=== PATIENT | male | born 1955 | race Caucasian/White ===

== ENCOUNTER → 2018-01-02 07:34 | Outpatient (CLI) | payer OTHER, SELFPAY ==
[2018-01-02 08:41] LABS: Potassium 3.9 mmol/L (3.5-5.1)
== END ==
PROVIDERS: PCP Internal Medicine; Visit Provider Internal Medicine
DX: I48.91 Unspecified atrial fibrillation (principal)
CPT/HCPCS: 36415; 84132

== ENCOUNTER 2018-06-25 07:25 | Outpatient (CLI) | payer OTHER, SELFPAY ==
[2018-06-25 08:59] LABS: BUN 15 mg/dL (7-18); CREATININE 0.81 mg/dL (0.70-1.30); Calcium 9.2 mg/dL (8.5-10.1); Chloride 105 mmol/L (98-107); Cholesterol 99 mg/dL (50-200); Digoxin 0.58 ng/mL (0.90-2.00); Glucose 144 mg/dL (70-100); HDL Cholesterol 31 mg/dL (40-60); LDL CHOLESTEROL 53 mg/dL (<100); Potassium 3.9 mmol/L (3.5-5.1); Sodium 143 mmol/L (136-145); Triglyceride 80 mg/dL (30-150)
== END 2018-06-25 07:45 ==
PROVIDERS: PCP Internal Medicine; Visit Provider Internal Medicine
DX: I48.91 Unspecified atrial fibrillation (principal); R73.01 Impaired fasting glucose; E78.00 Pure hypercholesterolemia, unspecified; Z51.81 Encounter for therapeutic drug level monitoring
CPT/HCPCS: 36415; 80048; 80061; 83721; 80162

== ENCOUNTER 2019-07-01 07:22 | Outpatient (CLI) | payer OTHER, SELFPAY ==
[2019-07-01 09:03] LABS: Anion Gap 12.1 mmol/L (3-11); BUN 15 mg/dL (7-18); CO2 25.9 mmol/L (21.0-32.0); CREATININE 0.67 mg/dL (0.70-1.30); Calculated LDL 63 mg/dL (<100); Chloride 105 mmol/L (98-107); Cholesterol 108 mg/dL (<200); Digoxin 0.56 ng/mL (0.90-2.00); Glucose 164 mg/dL (74-106); HDL Cholesterol 29 mg/dL (40-60); Potassium 3.5 mmol/L (3.5-5.1); Sodium 143 mmol/L (136-145); Triglyceride 80 mg/dL (<150)
[2019-07-01 13:46] LABS: COMMENT (LAB VIEW ONLY) 148.83 mg/dL
== END 2019-07-01 07:42 ==
PROVIDERS: PCP Internal Medicine; Visit Provider Internal Medicine
DX: I10 Essential (primary) hypertension (principal); R73.01 Impaired fasting glucose; E78.00 Pure hypercholesterolemia, unspecified; I48.91 Unspecified atrial fibrillation; R60.9 Edema, unspecified
CPT/HCPCS: 36415; 80048; 80061; 80162; 82043; 82570

== ENCOUNTER 2020-08-28 09:47 | Outpatient (CLI) | payer SELFPAY ==
--- NOTE | 2020-08-28 09:45 | RT.EKG_ITS ---
APPROVED REPORT Exam: Resting ECG Patient Location: O HR:121 bpm ECG Measurements Heart Rate 121 AXIS [place] [id number] P [id number] QRSd 103 QRS 40 QT 296 T -70 QTc 420 Conclusion Atrial fibrillation...V-rate 87-147, irreg A-activity Low voltage, precordial leads...precordial leads <1.0mV
== END 2020-08-28 09:48 | disposition home or self-care (01) ==
LOC: DI.CARD 09:48
PROVIDERS: PCP Internal Medicine; Visit Provider Internal Medicine Cardiovascular Disease
DX: R00.0 Tachycardia, unspecified (principal)
CPT/HCPCS: 93010

== ENCOUNTER 2020-09-01 03:21 | Outpatient (CLI) | payer SELFPAY ==
[2020-09-01 08:10] LABS: Anion Gap 9.4 mmol/L (3-11); BUN 17 mg/dL (7-18); CO2 29.6 mmol/L (21.0-32.0); Calcium 9.5 mg/dL (8.5-10.1); Calculated LDL 43 mg/dL (<100); Chloride 105 mmol/L (98-107); Cholesterol 85 mg/dL (<200); Glucose 151 mg/dL (74-106); HDL Cholesterol 31 mg/dL (40-60); Potassium 4.4 mmol/L (3.5-5.1); Sodium 144 mmol/L (136-145); Triglyceride 55 mg/dL (<150)
[2020-09-01 12:09] LABS: COMMENT (LAB VIEW ONLY) 30.43 mg/dL; Microalb ug/mg Crea 95.3 ug/mg Cr
== END 2020-09-01 03:22 | disposition home or self-care (01) ==
PROVIDERS: PCP Internal Medicine; Visit Provider Internal Medicine
DX: E78.00 Pure hypercholesterolemia, unspecified (principal); I10 Essential (primary) hypertension; E11.9 Type 2 diabetes mellitus without complications; I48.20 Chronic atrial fibrillation, unspecified; Z79.899 Other long term (current) drug therapy
CPT/HCPCS: 36415; 80048; 80061; 80162; 82043; 82570

== ENCOUNTER 2020-09-07 02:37 | Outpatient (CLI) | payer SELFPAY ==
[2020-09-07 07:58] LABS: Digoxin 0.51 ng/mL (0.90-2.00)
== END 2020-09-07 02:38 | disposition home or self-care (01) ==
LOC: LBO 02:37
PROVIDERS: PCP Internal Medicine; Visit Provider Internal Medicine
DX: I48.20 Chronic atrial fibrillation, unspecified (principal); Z51.81 Encounter for therapeutic drug level monitoring
CPT/HCPCS: 36415; 80162

== ENCOUNTER 2020-09-09 10:56 | Outpatient (CLI) | payer SELFPAY ==
--- NOTE | 2020-09-09 10:45 | RT.EKG_ITS ---
APPROVED REPORT Exam: Resting ECG Reason for Exam: a fib Patient Location: O HR:117 bpm ECG Measurements Heart Rate 117 AX[address] W[place] [id number] P [id number] QRSd 96 QRS 42 QT 300 T 216 QTc 419 Conclusion Atrial fibrillation...V-rate 65-158, irreg A-activity
--- NOTE | 2020-09-09 12:00 | HOLTER_ITS ---
APPROVED REPORT Conclusion This is a 48-hour monitor ordered for indication of dyspnea. The patient was in atrial fibrillation for the entirety of the recording with an average heart rate o f 72 bpm. There were no episodes of ventricular tachycardia and rare PVCs. There were no pauses greater than 3 seconds and no evidence of high degree heart block. There was 1 patient triggered event associated with atrial fibrillation with RVR.
== END 2020-09-09 10:57 | disposition home or self-care (01) ==
LOC: DI.CARD 11:15
PROVIDERS: PCP Internal Medicine; Visit Provider Internal Medicine Cardiovascular Disease
DX: I48.91 Unspecified atrial fibrillation (principal)
CPT/HCPCS: 93010; 93225

== ENCOUNTER 2020-09-09 11:56 | Outpatient (RCR) | payer SELFPAY | END 2020-10-05 23:59 | disposition home or self-care (01) | LOC: RT 11:56 | PROVIDERS: PCP Internal Medicine; Visit Provider Internal Medicine Cardiovascular Disease | DX: R06.09 Other forms of dyspnea (principal); I48.91 Unspecified atrial fibrillation | CPT/HCPCS: 93226 ==

== ENCOUNTER 2020-09-17 00:31 | Outpatient (CLI) | payer SELFPAY ==
--- NOTE | 2020-09-17 07:00 | DI.US_ITS ---
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 Technically limited study due to body habitus. Conclusion Left Ventricle : The left ventricle is normal size. The left ventricular systolic function is normal. The left ventricular ejection fraction is within the normal range. There is normal left ventricular wall thickness. There is normal LV segmental wall motion. LVEF is 55%. Right Ventricle : The right ventricle is normal size. The right ventricular systolic function is norm al. Atria : The left atrium size is normal. The right atrium size is normal. Aortic Valve : The aortic valve is normal in structure. Aortic valve is trileaflet. Trace to mild aor tic regurgitation. There is no aortic valvular stenosis. Great Vessels : The aortic root is normal in size. The ascending aorta is mildly dilated. Aortic arch is normal in caliber. IVC is normal in size and collapses >50% with inspiration. Please see remainder of study for further details. Wall motion Left Ventricle The left ventricle is normal size. The left ventricular systolic function is normal. The left ventric ular ejection fraction is within the normal range. There is normal left ventricular wall thickness. T here is normal LV segmental wall motion. There is no ventricular septal defect visualized. LVEF is 55 %. Right Ventricle The right ventricle is normal size. The right ventricular systolic function is normal. Atria The left atrium size is normal. The right atrium size is normal. The interatrial septum is intact wit h no evidence for an atrial septal defect. Aortic Valve The aortic valve is normal in structure. Aortic valve is trileaflet. There is no aortic valvular sten osis. Trace to mild aortic regurgitation. Mitral Valve Mild mitral annular calcification. No evidence of mitral valve stenosis. Trace to mild mitral regurgi tation. Tricuspid Valve The tricuspid valve is normal in structure. There is no tricuspid valve stenosis. Trace tricuspid reg urgitation. Pulmonic Valve Pulmonic valve is not well visualized. There is no pulmonic valvular stenosis. Trace pulmonic regurgi tation. Great Vessels The aortic root is normal in size. The ascending aorta is mildly dilated. Aortic arch is normal in ca liber. IVC is normal in size and collapses >50% with inspiration. Pericardium There is no pericardial effusion. 2D Dimensions IVSD d PLAX 0.96 cm M: 0.6-1.2 LV Vol A2C d MOD 116.2 mL LVPW d PLAX 1.05 cm M: 0.6 - 1.2 LV Vol A4C d MOD 109.9 mL LVID d PLAX 5.01 cm M: 4.2 - 5.8 LA vol/ BSA A2C s A-L 47.7 mL/m2 LVDs 3.55 cm M: 2.5 - 4.0 LA vol/ BSA A4C s A-L 45.9 mL/m2 Ao Root d 3.28 cm M: 3.1 - 3.7 LA Vol/ BSA Biplane s A-L 49.0 mL/m2 RA Area A4C 19.91 cm2 LA Area A4C s MOD 30.22 cm2 RA Vol/ BSA A4C s A-L 25.0 mL/m2 LA Area A2C s MOD 29.38 cm2 Ao Asc Diam d 3.72 cm M: 2.6 - 3.4 LV EF A4C MOD 56.7 % LV EF Teichholz 55.6 % LV EF A2C MOD 53.8 % LVEF (Morgan's) 55.66 % M: 52 - 72 LV EF Biplane MOD 55.7 % LV Volume 83.37 mL M: 62 - 150 SV 64.57 mL LV Volume Index 36.56 mL/m2 M: 34 - 74 SV Index 28.23 mL/m2 LV Vol Biplane MOD 116.0 mL FS 29.00 % M-Mode TAPSE 2.04 cm (M/F) >1.7 LV Diastology MV E' medial 0.092 (>0.07 m/s) MV E Vmax 0.94 (0.4-1.3 m/s) LV E/e MED 10.20 (<14) MV E' lateral 0.111 (>0.1 m/s) LV E/e LAT 8.40 (<14) MV E/E' medial 10.24 MV E/E' lateral 8.44 Aortic Valve LVOT Area 3.79 cm2 AoV Area Vmax 2.75 cm2 LVOT Vmax 1.18 m/s AoV Area/ BSA (Vmax) 1.20 cm2/m2 LVOT Mean Rojelio. 0.73 m/s MILLER Mean Rojelio. 2.56 cm2 LVOT Peak Grad 5.5 mmHg MILLER Mean Rojelio. Index 1.12 cm2/m2 LVOT Mean Grad 2.6 mmHg AR DT 2510 msec LVOT VTI 0.199 m AR PHT 728 msec LVOT Diam s 2.15 cm AoV Vmax 1.63 m/s Velocity Ratio 0.72 AoV Mean Rojelio. 1.08 m/s AoV Peak Grad 10.6 mmHg LVOT SV 75.56 mL AoV Mean Grad 5.4 mmHg AoV VTI 0.243 m AoV Area VTI 3.11 cm2 AoV Area/ BSA (VTI) 1.36 cm/m2 Mitral Valve MV DT 168 (160-240 msec) MV PHT 49 msec MV Area PHT 4.51 cm2 MV VTI 0.224 m MV Area VTI 3.38 (4.0-6.0 cm2) Pulmonary Valve PV Vmax 0.93 (0.5-1.5 m/s) RVOT Peak Gr. 2.58 mmHg PV Peak Grad 3.5 mmHg RVOT Mean Gr. 1.55 mmHg PV Mean Grad 2.1 mmHg RVOT VTI 0.163 m PV VTI 0.220 m RVOT Vmax 0.80 m/s
--- NOTE | 2020-09-17 07:00 | DI.NM_ITS ---
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 Reason for pharmacologic stress test: arthritis in BLE. Rest Isotope: Tc-99m Sestamibi. Dose: 14.0 Date: 09/17/2020 Injection Time: 0845 Stress Isotope: Tc-99m Sestamibi. Dose: 45.0 Date: 09/17/2020 Injection Time: 1025 HR Resting HR Supine: 102 bpm Max Heart Rate (APMHR): 156.001563 bpm Resting HR Standin bpm Target HR (85% APMHR): 132.381300 bpm Max HR Achieved: 190 bpm % of APMHR: 121.79 Recovery HR: 112 bpm HR response to stress: Accelerated HR response to stress Comment: Did not hold metoprolol succinate. Taken this AM. BP Resting BP Supine: 144/76 mmHg Resting BP Standin/80 mmHg Max BP: 144/76 mmHg Recovery BP: 140/82 mmHg BP response to stress: Normal blood pressure response to stress. ECG Resting ECG: Atrial Fibrillation Ectopy: None Stress ECG: Atrial Fibrillation ST Change: No significant ST segment changes noted Arrhythmia: None Recovery ECG: Atrial Fibrillation Recovery ST Change: No significant ST segment changes noted Recovery Arrhythmia: PVC Clinical Stress Symptoms: Lightheaded Exercise duration: 4 min8 sec Exercise capacity: 1.54 METs Rate Pressure Product: [id number] Stress ECG Conclusion 1. This is a pharmacological stress test. 2. The EKG portion of the exam is nondiagnostic. MPI Conclusion There is a small mostly fixed perfusion defect at the apex and apical anterior wall. There were no wall motion abnormalities. Ejection fraction was 55%. Radiologist Interpretation Radiologist agrees with Ruby Software Developer's Interpretation. Radiologist Interpretation by: Rebecca Saleh MD Interpretation Date/Time: 09/18/2020 15:29:58
[2020-09-17] MEDS: Regadenoson 0.4 MG/5 ML SYR IVP (10:14)
== END 2020-09-17 00:51 ==
PROVIDERS: PCP Internal Medicine; Visit Provider Internal Medicine Cardiovascular Disease
DX: I48.91 Unspecified atrial fibrillation (principal); R93.9 Diagnostic imaging inconclusive due to excess body fat of patient; I77.810 Thoracic aortic ectasia
CPT/HCPCS: 78452; 93017; 93306; J2785

== ENCOUNTER 2020-10-06 07:08 | Day surgery (SDC) | payer SELFPAY ==
[2020-10-06] VITALS (9 sets, daily range): BP systolic 100–131; BP diastolic 42–75; PULSE 47–62; RESP 14–19; TEMP 36.4–36.8; O2SAT 94–97; BMI 52.1
--- NOTE | 2020-10-06 06:00 | RT.EKG_ITS ---
APPROVED REPORT Exam: Resting ECG Reason for Exam: Cardioversion Pre-op Patient Location: O HR:61 bpm ECG Measurements Heart Rate 61 AXIS [place] [id number] P [id number] QRSd 97 QRS 35 QT 393 T [id number] QTc 395 Conclusion Atrial fibrillation...V-rate 49- 68, irreg A-activity Anteroseptal infarct, age indeterminate...Q >35mS, T neg, V1-V2
--- NOTE | 2020-10-06 07:49 | ANES.PREOP_ITS ---
General Info Date of Service Date Performed: 10/06/20 Height: 5 ft 5 in Weight: 142.1 kg Body Mass Index (BMI): 52.1 Surgical Procedure: Operation Date: 10/06/20 09:15 Proposed Procedures Side Surgeon p Cardioversion Salomón Noland MD Actual Procedures Side Surgeon p Cardioversion Salomón Noland MD Meds Allergies and Home Medications Allergies Allergy/AdvReac Type Severity Reaction Status Date / Time No Known Drug Allergies Allergy Verified 10/06/20 07:29 Home Medication Medication Instructions Recorded multivitamin 1 ea PO DAILY 07/17/12 Biotine DENTAL BID 01/15/13 amlodipine 5 mg tablet 5 mg PO DAILY #90 tab-cap 01/28/20 apixaban 5 mg tablet 5 mg PO q 12 hours #180 tab 01/28/20 atorvastatin 40 mg tablet 40 mg PO DAILY #90 tab-cap 01/28/20 digoxin 250 mcg (0.25 mg) tablet 375 mcg PO DAILY #135 tab-cap 01/28/20 diltiazem HCl 360 mg 360 mg PO DAILY #90 tab-cap 01/28/20 capsule,extended release 24 hr furosemide 40 mg tablet 40 mg PO BID #180 tab 01/28/20 metoprolol succinate 50 mg 50 mg PO DAILY #90 tab 01/28/20 tablet,extended release 24 hr potassium chloride 20 mEq 20 meq PO BID #180 tab-cap 01/28/20 tablet,extended release Current Visit Medications: Current Medications Generic Name Dose Route Start Last Admin Trade Name Freq PRN Reason Stop Dose Admin Sodium Chloride 1,000 mls @ 30 mls/hr 10/01/20 06:00 Saline 1000ml Bag IV [facility] Active Problems Active Problems: Problem Status Onset Code Dyspnea R06.00 Type 2 diabetes mellitus without complication ~09/01/20 E11.9 Essential hypertension 07/17/12 I10 Atrial fibrillation 10/06/15 I48.91 Obstructive sleep apnea (adult) (pediatric) 09/11/12 G47.33 Chronic anticoagulation ~09/2015 Z79.01 BMI 50.0-59.9, adult 09/11/12 Z68.43 Knee pain 06/18/13 M25.569 Peripheral edema 12/26/17 R60.9 Weight loss counseling, encounter for 02/11/15 Z71.3 Medical History Medical History (Reviewed 10/06/20 @ 07:29 by Guillermo Rivera Colon cancer screening Impaired fasting glucose (06/30/11) Tobacco Smoking/Tobacco Use Status: Never Alcohol Alcohol Intake: never Substance Use Substance use: Never Substance use type: does not use Vital Signs and Lab Results Vital Signs Most Recent Vital Signs in EMR: Most Recent Vital Signs Temp Pulse Resp BP Pulse Ox 36.4 C L 62 18 131/75 95 10/06/20 07:33 10/06/20 07:33 10/06/20 07:33 10/06/20 07:33 10/06/20 07:33 Lab Results Blood Type / Crossmatch: No Data to Display Complete Blood Count: No Data to Display Complete Metabolic Panel: No Data to Display Liver Function Panel: No Data to Display Coagulation Panel: No Data to Display Cardiac Panel: No Data to Display Arterial Blood Gas: No Data to Display Venous Blood Gas: No Data to Display Pancreas Panel: No Data to Display Thyroid Panel: No Data to Display Infectious Disease: No Data to Display Blood Cultures: No Data to Display Toxicology Panel: Digoxin Level 0.51 ng/mL (0.90-2.00) L 09/07/20 07:14 09/07/20 Imaging and Studies Imaging and Studies Stress Test Summary: 09/25: Stress ECG Conclusion 1. This is a pharmacological stress test. 2. The EKG portion of the exam is nondiagnostic. MPI Conclusion There is a small mostly fixed perfusion defect at the apex and apical anterior wall. There were no wall motion abnormalities. Ejection fraction was 55%. Echocardiogram Summary: 09/25: Left Ventricle : The left ventricle is normal size. The left ventricular systolic function is normal. The left ventricular ejection fraction is within the normal range. There is normal left ventricular wall thickness. There is normal LV segmental wall motion. LVEF is 55%. Right Ventricle : The right ventricle is normal size. The right ventricular systolic function is normal. Atria : The left atrium size is normal. The right atrium size is normal. Aortic Valve : The aortic valve is normal in structure. Aortic valve is trileaflet. Trace to mild aortic regurgitation. There is no aortic valvular stenosis. Great Vessels : The aortic root is normal in size. The ascending aorta is mildly dilated. Aortic arch is normal in caliber. IVC is normal in size and collapses >50% with inspiration. Please see remainder of study for further details. Anesthesia Assessment and Plan Anesthesia History Personal History: No History of Anesthesia Complications Family History: No Family History of Anesthesia Complications Exercise Tolerance Exercise Tolerance: Metabolic Equivalents>4 Cardiac & Pulmonary Exam Cardiac Exam: Normal S1/S2 Heart Sounds Pulmonary Exam: Clear Bilateral Breath Sounds Airway Exam Known Difficult Airway: No Mallampati Class: 2 Mouth Opening: Normal (> 3cm) Thyromental Distance: Greater than 3 cm Neck Range of Motion: Limited ROM Neck Circumference: Thick Teeth Condition: Normal Dentition ASA Classification ASA Score: ASA 3 Emergency Case?: No NPO Status NPO Status: NPO Clears >2 hours, Solids >8 hours Anesthesia Plan Resuscitation Status: Full Code Anesthesia Technique: MAC Anesthesia Airway Planned: Natural Airway Monitors Used: Standard Monitors
[2020-10-06] MEDS: Normal Saline 1,000 ML 30 ML IV (07:52)
--- NOTE | 2020-10-06 08:48 | W.PM.HP.N ---
Date of service: 10/06/20 Time of Service: 08:49 Assessment and Plan Assessment and plan (1) Chronic anticoagulation: Status: Chronic (2) Atrial fibrillation: Status: Acute Assessment and plan: 1. Persistent atrial fibrillation: Followed by [facility] electrophysiology. Plan today will be for DC cardioversion and follow-up with electrophysiology to discuss potential antiarrhythmic versus ablation. He had an echocardiogram which showed preserved ejection fraction and a nuclear stress test which showed a small fixed perfusion defect at the apex. He has not missed a single dose of his anticoagulation and therefore will not need a AUREA prior to the cardioversion. ?Plan to proceed with cardioversion. Qualifiers: Atrial fibrillation type: chronic Qualified Code(s): I48.2 - Chronic atrial fibrillation History of Present Illness History of Present Illness Chief Complaint: Afib Narrative: This is a 65-year-old with persistent atrial fibrillation who is seen in electrophysiology clinic here in early September. At that time it was felt as though a trial of the patient in normal sinus rhythm would help better understand whether or not an antiarrhythmic approach would be to his benefit. He is coming in today for a cardioversion. He has not missed a single dose of his anticoagulation. Review of Systems All systems reviewed & are unremarkable except as noted in HPI and below PFSH Medical History Colon cancer screening Impaired fasting glucose (06/30/11) Family History Mother No problems noted. Father , [place] at age 61. Myocardial infarction Sister No problems noted. Sister No problems noted. Son No problems noted. Son No problems noted. Daughter Personal history of malignant neoplasm age 9 of leukemia Social History Smoking/Tobacco Use Status: Never Smoking risk assessment performed?: Yes Alcohol Intake: never Drug use: Never Substance use type: does not use Household members: none Housing: house Number of Children: 3 number of grandchildren: 5 Communication Needs: Corrective Lenses current occupation: works at [employer] - retired Pets and animals: Yes (New dog, namned Annette) Current gender identity: male What is your relationship status?: Panel score (0-1 are the most socially isolated patients): 0 What type of physical activity do you participate in: walking and regular exercise Duration: 30-45 minutes/day Frequency: daily Seatbelt use: always Drive intox or ride w/intox taxi driver: No Working smoke detector in home: Yes Fire extinguisher in home: Yes Carbon monox detector in home: Yes Do you feel safe at home: Yes Do you feel safe in your relationship?: Yes Meds Allergies and Home Medications Allergies Allergy/AdvReac Type Severity Reaction Status Date / Time No Known Drug Allergies Allergy Verified 10/06/20 07:29 Home Medications Medication Instructions Recorded Confirmed Type multivitamin 1 ea PO DAILY 07/17/12 10/06/20 History Biotine DENTAL BID 01/15/13 01/28/20 History amlodipine 5 mg tablet 5 mg PO DAILY #90 tab-cap 01/28/20 10/06/20 Rx apixaban 5 mg tablet 5 mg PO q 12 hours #180 tab 01/28/20 10/06/20 Rx atorvastatin 40 mg tablet 40 mg PO DAILY #90 tab-cap 01/28/20 10/06/20 Rx digoxin 250 mcg (0.25 mg) tablet 375 mcg PO DAILY #135 tab-cap 01/28/20 10/06/20 Rx diltiazem HCl 360 mg 360 mg PO DAILY #90 tab-cap 01/28/20 10/06/20 Rx capsule,extended release 24 hr furosemide 40 mg tablet 40 mg PO BID #180 tab 01/28/20 10/06/20 Rx metoprolol succinate 50 mg 50 mg PO DAILY #90 tab 01/28/20 10/06/20 Rx tablet,extended release 24 hr potassium chloride 20 mEq 20 meq PO BID #180 tab-cap 01/28/20 10/06/20 Rx tablet,extended release Exam Const General: comfortable and no acute distress [facility] Head: normocephalic and atraumatic Eyes General: appearance normal, both eyes and all related structures Resp Effort & Inspection: normal respiratory effort Auscultation: clear to auscultation bilaterally Cardio Jugular venous pressure: no JVD Palpation: normal PMI Rate: regular rate Rhythm: abnormal rhythm Heart Sounds: S1 normal and S2 normal (No Murmurs, Rubs or Gallops) GI Palpation: soft Auscultation: normoactive bowel sounds Skin General skin exam: no rashes or lesions noted Extrem General: normal to inspection and no clubbing, cyanosis or edema Psych Appearance: grossly normal Results Last Vital Signs Temp 36.4 C L 10/06/20 07:33 Pulse 62 10/06/20 07:33 Resp 18 10/06/20 07:33 BP 131/75 10/06/20 07:33 Pulse Ox 95 10/06/20 07:33 COVID-19 Screening Have you, or household traveled for leisure in last 14 days?: No Had IN PERSON contact w/suspected or confirmed C-19 person: No
--- NOTE | 2020-10-06 09:00 | RT.EKG_ITS ---
APPROVED REPORT Exam: Resting ECG Reason for Exam: cardioversion post-op Patient Location: O HR:49 bpm ECG Measurements Heart Rate 49 AXIS [place] 274 P 30 QRSd 96 QRS 66 QT [id number] T 57 QTc 0 Conclusion Sinus bradycardia...rate< 60 Supraventricular bigeminy...bigeminy string>4 w/ SV complexes Prolonged AZ interval...AZ >230, V-rate 30- 49 Anteroseptal infarct, age indeterminate...Q >35mS, T neg, V1-V2
--- NOTE | 2020-10-06 09:22 | W.CARDVER ---
Date of service: 10/06/20 Time of Service: 09:22 Cardioversion Patient was confirmed to be in atrial fibrillation and timeout was performed. He was sedated by anesthesia. The patient received 200 J cardioversion x3. After the first 2 shocks he remained in atrial fibrillation but after the third shock he converted to sinus bradycardia. This was confirmed by ECG. He tolerated the procedure well without any complications. Patient was moved to recovery unit.
--- NOTE | 2020-10-06 10:18 | W.ANESPOSTOP ---
Postoperative Evaluation Date, Time and Location Date Performed: 10/06/20 Time Performed: 10:18 Patient Location: PACU Vital Signs Most Recent Imported Vital Signs: Most Recent Vital Signs Temp Pulse Resp BP Pulse Ox 36.8 C 53 L 17 115/59 L 95 10/06/20 10:15 10/06/20 10:15 10/06/20 10:15 10/06/20 10:15 10/06/20 10:15 Pain Score Most Recent Pain Score: Most Recent Pain Score Pain Level 0 10/06/20 10:15 Assessment Mental Status: Awake (Alert & Oriented to Patient Baseline) Airway and Respiratory Function: Patent airway with normal (patient baseline) respiratory exam Cardiovascular Function: Hemodynamically Stable Hydration Status: Adequately Hydrated Nausea & Vomiting: No Nausea or Vomiting Pain: Pt. Denies Any Pain Peripheral Nerve Block: Patient did not receive a nerve block
== END 2020-10-06 11:13 | disposition home or self-care (01) ==
LOC: SUR 07:08
PROVIDERS: PCP Internal Medicine; Visit Provider Internal Medicine Cardiovascular Disease
PROC: 5A2204Z Restoration of Cardiac Rhythm, Single (ICD-10-PCS; CPT 92960; principal; 2020-10-06 09:15)
DX: I48.19 Other persistent atrial fibrillation (principal)
CPT/HCPCS: 92960; J2001; J2704

== ENCOUNTER 2020-10-26 09:49 | Outpatient (CLI) | payer SELFPAY ==
--- NOTE | 2020-10-26 09:45 | RT.EKG_ITS ---
APPROVED REPORT Exam: Resting ECG Reason for Exam: monitor Patient Location: O HR:79 bpm ECG Measurements Heart Rate 79 AXIS [place] [id number] P [id number] QRSd 99 QRS 44 QT 347 T 163 QTc 398 Conclusion Atrial fibrillation...V-rate 63- 99, irreg A-activity Nonspecific T abnrm, anterolateral leads...T <-0.10mV, I aVL V2-V6
== END 2020-10-26 09:50 | disposition home or self-care (01) ==
LOC: DI.CARD 09:49
PROVIDERS: PCP Internal Medicine; Visit Provider Internal Medicine Cardiovascular Disease
DX: I48.91 Unspecified atrial fibrillation (principal)
CPT/HCPCS: 93010

== ENCOUNTER 2021-03-24 02:30 | Outpatient (CLI) | payer MEDICARE, SELFPAY ==
[2021-03-24 10:51] LABS: Source Nasal/Nares
[2021-03-24 14:12] LABS: COVID-19 PCR Negative (Negative)
== END 2021-03-24 02:31 | disposition home or self-care (01) ==
PROVIDERS: PCP Internal Medicine; Visit Provider Surgery
DX: Z20.822 Contact with and (suspected) exposure to COVID-19 (principal); Z01.818 Encounter for other preprocedural examination
CPT/HCPCS: 87635

== ENCOUNTER 2021-03-26 08:44 | Day surgery (SDC) | payer MEDICARE, OTHER, SELFPAY ==
--- NOTE | 2021-03-24 12:38 | W.COLOREPORT ---
Colonoscopy Report Date of procedure: 03/26/21 Pre-op diagnosis general: CRC screening Post-op diagnosis procedure note: other (divertic and mult polys) Surgeon: Essence Kauffman Anesthesia Type: General:No Airway Estimated blood loss (mL): 2 Pathology: other Complications: None Disposition: PACU Prep: Miralax/Dulcolax Procedure Description: After informed consent was obtained the patient was taken to the procedure room and placed in a left decubitous position. Monitors were applied and a time out was done. The patients name, date of , procedure, allergies to medications and metal in their body was reviewed. The patient was then sedated. Once sedated and comfortable a rectal exam was done. External exam was normal. Internal exam revealed a normal sphincter tone and no palpable masses. The scope was then introduced and retrofelexed. No internal hemorrhoids were identified. The scope was then advanced to the cecum without difficulty. The TI and appendiceal orifice were identified. The prep was he still having lots of thick stool coating the santamaria. The colon was extensively lavaged. Lesions less than 5 mm may have been missed.. The scope was then slowly retracted over [] minutes back into the rectum. Patient has severe diverticular disease is mostly in the sigmoid. He does have lesions that do extend all the way over to the transverse colon. No signs of active bleeding or infections today. He had multiple polyps removed today. He had 2 removed in the rectum with a hot biopsy forcep. At 20 cm he also has what appears to be a hemangioma and this was cauterized. He had 2 polyps at 80 cm. One was removed with a hot polypectomy snare. This 1 is 1 cm in size. The other is moved with a hot biopsy forcep. The spinous point 7 5 cm in size. He had a another polyp at 90 cm that is at 7 5 cm in size and flat. That is removed with a hot biopsy forcep.. He had another polyp in the cecum that is removed with a hot snare.-1 cm in size and pedunculated. The scope was removed and the patient was woken up and taken back to Same day surgery in stable condition. The patient tolerated the procedure well and there were no immediate complications. Follow up: The patient should follow up in 3-5 years, pending pathology, unless they develop changes in bowel habits or other new gastrointestinal complaints.
--- NOTE | 2021-03-24 12:40 | PDOC.DSDIS_ITS ---
Discharge Plan Disposition Patient Disposition: HOME Condition: Good Discharge Details Reason For Visit: colon scope Attending Provider: Essence Kauffman Primary Care Provider: Carol Maya Home Meds and New Rx's Prescriptions: Continued furosemide 40 mg tablet 40 mg PO BID Qty: 180 RF: 3 metoprolol succinate 50 mg tablet extended release 24 hr 50 mg PO DAILY Qty: 90 RF: 3 potassium chloride 20 mEq tablet extended release 20 meq PO BID Qty: 180 RF: 3 amlodipine 5 mg tablet 5 mg PO DAILY Qty: 90 RF: 3 Eliquis 5 mg tablet 5 mg PO q 12 hours Qty: 180 RF: 3 atorvastatin 40 mg tablet 40 mg PO DAILY Qty: 90 RF: 3 digoxin 250 mcg (0.25 mg) tablet 375 mcg PO DAILY Qty: 135 RF: 1 diltiazem HCl 360 mg capsule,extended release 24hr 360 mg PO DAILY Qty: 90 RF: 3 multivitamin 1 EACH tablet 1 ea PO DAILY RF: 0 biotine Dental BID RF: 0 Discontinued polyethylene glycol 3350 17 gram/dose powder 238 g PO ONCE Qty: 238 RF: 0 bisacodyl [Dulcolax (bisacodyl)] 5 mg tablet,delayed release (DR/EC) 5 mg PO ONCE Qty: 4 RF: 0 Discharge Instructions Additional Instructions: DSU Colonoscopy Post- Op Instructions Instructions for Everyone who is given Anesthesia: For your safety, please do the following for the next twenty-four (24) hours: *Do Not operate a motor vehicle (car, truck, motorcycle, etc.) *Do Not drink alcoholic beverages or use any recreational drugs for the first 24 hours or while taking pain medications. The medications in your body may have a reaction that can be dangerous. *Do Not make any important decisions or sign any important papers. Findings: -Severe diverticular disease -6 polyp -NO: ASSA/NSAID's for 14 days Resume Elliquis on 04/01. Follow up: My office will send a letter in 3 weeks time, detailing as to what types of polyps they are, and when we want you to repeat the colonoscopy. Most likely, in 3 years time. 1. No lifting over 20 pounds or strenuous activity for the first 24 hours after your procedure. After 24 hours there are no restrictions on your activity but you may feel fatigued for a few days. 2. After you arrive home you may have a light meal and return to your normal diet as you can tolerate it without feeling sick to your stomach. 3. You may have a bloated, gaseous feeling in your belly (abdomen) after a colonoscopy. Passing gas and belching will help. Walking or lying down on your left side with your knees flexed may relieve the discomfort. Call the office at [phone] (Office) or [phone] (Hospital) right away if you notice any of the following: a.Vomiting of blood or ?coffee ground stools?. b.Rectal bleeding 1Tbsp, blood clots or continuous bleeding. c.Severe belly (abdominal) pain. d.A hard distended belly (abdomen) and an inability to pass gas. 4. Please don?t expect to have a normal BM (bowel movement) for 2-3 days after your procedure. 5. If there are questions regarding the findings of your procedure, please contact your doctor 6. If you are unable to contact your doctor with a problem, contact the hospital at [phone]. 7. Continue all your regular medications unless directed otherwise. I understand the above instructions and have no questions. Signature of Patient or Adult Escort Name of Responsible Adult Escort Signature of Nurse Date/Time Activity:: see above Diet:: Carb Counting Discharge Orders Discharge Orders: Discharge Order (Routine); Ordered 03/24/21 Ordered By: Essence Kauffman DS: Diagnosis Discharge Diagnosis (1) Adenomatous polyps: Status: Acute (2) Diverticula of colon: Status: Acute
[2021-03-26] VITALS (7 sets, daily range): BP systolic 82–107; BP diastolic 53–73; PULSE 68–84; RESP 17–27; TEMP 36–36.7; O2SAT 93–97; BMI 52.8
--- NOTE | 2021-03-26 10:34 | W.ANESPRE ---
General Info Date of Service Date Performed: 03/26/21 Height: 5 ft 4 in Weight: 139.7 kg Body Mass Index (BMI): 52.8 Surgical Procedure: Operation Date: 03/26/21 10:05 Proposed Procedures Side Surgeon criss Kauffman, Meds Allergies and Home Medications Allergies Allergy/AdvReac Type Severity Reaction Status Date / Time No Known Drug Allergies Allergy Verified 03/26/21 09:46 Home Medication Medication Instructions Recorded multivitamin 1 ea PO DAILY 07/17/12 Biotine DENTAL BID 01/15/13 amlodipine 5 mg tablet 5 mg PO DAILY #90 tab-cap 01/28/20 apixaban 5 mg tablet 5 mg PO q 12 hours #180 tab 01/28/20 atorvastatin 40 mg tablet 40 mg PO DAILY #90 tab-cap 01/28/20 digoxin 250 mcg (0.25 mg) tablet 375 mcg PO DAILY #135 tab-cap 01/28/20 diltiazem HCl 360 mg 360 mg PO DAILY #90 tab-cap 01/28/20 capsule,extended release 24 hr furosemide 40 mg tablet 40 mg PO BID #180 tab 01/28/20 metoprolol succinate 50 mg 50 mg PO DAILY #90 tab 01/28/20 tablet,extended release 24 hr potassium chloride 20 mEq 20 meq PO BID #180 tab-cap 01/28/20 tablet,extended release Current Visit Medications: Current Medications Generic Name Dose Route Start Last Admin Trade Name Freq PRN Reason Stop Dose Admin Hyoscyamine Sulfate 0.125 mg 03/24/21 12:37 Hyoscyamine 0.125 Mg Sl/Oral/Chew SL DIRECTED PRN Ringer's Solution 1,000 mls @ 80 mls/hr 03/26/21 06:00 IV 04/06/21 23:59 [facility] IV Miscellaneous Supplies 1 each 03/26/21 06:00 Iv Access IV 04/06/21 23:59 DIRECTED AVERY Ondansetron HCl 4 mg 03/24/21 12:37 Ondansetron 4 Mg/2 Ml Vial IVP Q4H PRN PRN Nausea / Vomiting Sodium Chloride 0 ml 03/26/21 06:00 Normal Saline Flush 10 Ml Syr IV 04/06/21 23:59 PRN PRN Sodium Chloride 0 ml 03/26/21 06:00 Normal Saline 10 Ml Vial IJ 04/06/21 23:59 DIRECTED PRN Sterile Water 0 ml 03/26/21 06:00 Water,Injection,Sterile 10 Ml Vial IJ 04/06/21 23:59 DIRECTED PRN PFSH Active Problems Active Problems: Problem Status Onset Code Weight loss counseling, encounter for 02/11/15 Z71.3 Peripheral edema 12/26/17 R60.9 Obstructive sleep apnea (adult) (pediatric) 09/11/12 G47.33 Knee pain 06/18/13 M25.569 Essential hypertension 07/17/12 I10 BMI 50.0-59.9, adult 09/11/12 Z68.43 Atrial fibrillation 10/06/15 I48.91 Type 2 diabetes mellitus without complication ~09/01/20 E11.9 Colon cancer screening Z12.11 Chronic anticoagulation ~09/2015 Z79.01 Dyspnea R06.00 Medical History Active Problem List (Updated 03/26/21 @ 09:50 by Kathryn To) Weight loss counseling, encounter for (Acute 02/11/15) Peripheral edema (Acute 12/26/17) Obstructive sleep apnea (adult) (pediatric) (Acute 09/11/12) Knee pain (Acute 06/18/13) Essential hypertension (Acute 07/17/12) BMI 50.0-59.9, adult (Acute 09/11/12) Atrial fibrillation (Acute 10/06/15) Type 2 diabetes mellitus without complication (Acute ~09/01/20) Colon cancer screening (Acute) Chronic anticoagulation (Chronic ~09/2015) Dyspnea (Acute) Medical History (Updated 03/26/21 @ 09:50 by Kathryn To) History of cardioversion Impaired fasting glucose (06/30/11) JOSE ARMANDO (obstructive sleep apnea) Surgical History Surgical History History of colonoscopy (~04/08/10) Tobacco Smoking/Tobacco Use Status: Never Alcohol Alcohol Intake: never Substance Use Substance use: Never Substance use type: does not use Vital Signs and Lab Results Vital Signs Most Recent Vital Signs in EMR: Most Recent Vital Signs Temp Pulse Resp BP Pulse Ox 36.7 C 71 18 107/72 97 03/26/21 09:50 03/26/21 09:50 03/26/21 09:50 03/26/21 09:50 03/26/21 09:50 Lab Results Blood Type / Crossmatch: No Data to Display Complete Blood Count: No Data to Display Complete Metabolic Panel: No Data to Display Liver Function Panel: No Data to Display Coagulation Panel: No Data to Display Cardiac Panel: No Data to Display Arterial Blood Gas: No Data to Display Venous Blood Gas: No Data to Display Pancreas Panel: No Data to Display Thyroid Panel: No Data to Display Infectious Disease: Coronavirus (COVID-19)(PCR) Negative (Negative) 03/24/21 08:52 03/24/21 Coronavirus 2019 Source Nasal/Nares 03/24/21 08:52 03/24/21 Blood Cultures: No Data to Display Toxicology Panel: No Data to Display Imaging and Studies Imaging and Studies Stress Test Summary: 09/25: Stress ECG Conclusion 1. This is a pharmacological stress test. 2. The EKG portion of the exam is nondiagnostic. MPI Conclusion There is a small mostly fixed perfusion defect at the apex and apical anterior wall. There were no wall motion abnormalities. Ejection fraction was 55%. Echocardiogram Summary: 09/25: Left Ventricle : The left ventricle is normal size. The left ventricular systolic function is normal. The left ventricular ejection fraction is within the normal range. There is normal left ventricular wall thickness. There is normal LV segmental wall motion. LVEF is 55%. Right Ventricle : The right ventricle is normal size. The right ventricular systolic function is normal. Atria : The left atrium size is normal. The right atrium size is normal. Aortic Valve : The aortic valve is normal in structure. Aortic valve is trileaflet. Trace to mild aortic regurgitation. There is no aortic valvular stenosis. Great Vessels : The aortic root is normal in size. The ascending aorta is mildly dilated. Aortic arch is normal in caliber. IVC is normal in size and collapses >50% with inspiration. Please see remainder of study for further details. Anesthesia Assessment and Plan Anesthesia History Personal History: No History of Anesthesia Complications Family History: No Family History of Anesthesia Complications Exercise Tolerance Exercise Tolerance: Metabolic Equivalents<4 Pertinent Negatives Pertinent Negatives: No Symptoms of GERD, No Major Cardiovascular Symptoms or Complaints and No Major Pulmonary Symptoms or Complaints Cardiac & Pulmonary Exam Cardiac Exam: Other (Irregular, a fib) Pulmonary Exam: Clear Bilateral Breath Sounds (But diminished) Cardiac and Pulmonary Comment:: Sleep apnea Implantable Cardiac Device Does patient have a Pacemaker or an ICD?: No Airway Exam Known Difficult Airway: No Mallampati Class: 2 Mouth Opening: Normal (> 3cm) Thyromental Distance: Greater than 3 cm Neck Range of Motion: Limited ROM Neck Circumference: Thick Teeth Condition: Normal Dentition ASA Classification ASA Score: ASA 3 Emergency Case?: No NPO Status NPO Status: NPO Clears >2 hours, Solids >8 hours Anesthesia Plan Resuscitation Status: Full Code Anesthesia Technique: General Anesthesia Airway Planned: Natural Airway Monitors Used: Standard Monitors
[2021-03-26] MEDS: Lactated Ringers 1,000 ML 80 ML IV (10:50)
--- NOTE | 2021-03-26 11:05 | BOWEL_PTH ---
PATIENT: Blaise Flores LOC: [facility] U#:[id number] AGE/SX: 66/M ROOM: RE03/26/[address]: Essence Kauffman : 1955 BED: DIS: 03/26/2021 SPEC #: [id number] RECD: 03/26/21 12:26 STATUS: SARAH REDoron #: [id number] GAURI: 03/26/21 11:[address]: Essence Kauffman DEPT: Surgical Specimen RECD BY: Naima Song ENTERED: 03/26/21 12:28 SP TYPE: Bowel OTHR DR: Carol Maya MD Tissues: 1 - BIOPSY BOWEL 2 - BIOPSY BOWEL 3 - BIOPSY BOWEL 4 - BIOPSY BOWEL Procedures: GROSS AND MICRO LEVEL 4 Comments: [id number]
--- NOTE | 2021-03-26 12:50 | W.ANESPOSTOP ---
Postoperative Evaluation Date, Time and Location Date Performed: 03/26/21 Time Performed: 12:42 Patient Location: Day Surgery Unit Vital Signs Most Recent Imported Vital Signs: Most Recent Vital Signs Temp Pulse Resp BP Pulse Ox 36.0 C L 80 20 99/64 L 95 03/26/21 12:14 03/26/21 12:14 03/26/21 12:14 03/26/21 12:14 03/26/21 12:14 Pain Score Most Recent Pain Score: Most Recent Pain Score Pain Level 0 03/26/21 12:14 Assessment Mental Status: Awake (Alert & Oriented to Patient Baseline) Airway and Respiratory Function: Patent airway with normal (patient baseline) respiratory exam Cardiovascular Function: Hemodynamically Stable Hydration Status: Adequately Hydrated Nausea & Vomiting: No Nausea or Vomiting Pain: Pt. Denies Any Pain Peripheral Nerve Block: Patient did not receive a nerve block
== END 2021-03-26 13:21 | disposition home or self-care (01) ==
PROVIDERS: PCP Internal Medicine; Visit Provider Surgery
PROC: 0DJD8ZZ Inspection of Lower Intestinal Tract, Via Natural or Artificial Opening Endoscopic (ICD-10-PCS; CPT 45378; principal; 2021-03-26 10:00)
DX: Z12.11 Encounter for screening for malignant neoplasm of colon (principal); D12.4 Benign neoplasm of descending colon; D12.3 Benign neoplasm of transverse colon; D12.0 Benign neoplasm of cecum; D12.8 Benign neoplasm of rectum; K57.30 Diverticulosis of large intestine without perforation or abscess without bleeding
CPT/HCPCS: 45385; 45384; 88305

== ENCOUNTER 2021-09-17 03:03 | Outpatient (CLI) | payer MEDICARE, SELFPAY ==
[2021-09-17 10:27] LABS: Anion Gap 12.4 mmol/L (3-11); BUN 15 mg/dL (7-18); CO2 26.6 mmol/L (21.0-32.0); CREATININE 0.8 mg/dL (0.70-1.30); Calculated LDL 46 mg/dL (<100); Chloride 104 mmol/L (98-107); Cholesterol 93 mg/dL (<200); Glucose 145 mg/dL (74-106); HDL Cholesterol 35 mg/dL (40-60); Potassium 3.9 mmol/L (3.5-5.1); Sodium 143 mmol/L (136-145); Triglyceride 62 mg/dL (<150)
== END 2021-09-17 03:04 | disposition home or self-care (01) ==
LOC: LBO 03:12
PROVIDERS: PCP Internal Medicine; Visit Provider Internal Medicine
DX: I10 Essential (primary) hypertension (principal); E78.00 Pure hypercholesterolemia, unspecified
CPT/HCPCS: 36415; 80048; 80061

== ENCOUNTER → 2021-11-02 08:35 | Outpatient (BNVA) | payer MEDICARE, SELFPAY | PROVIDERS: PCP Internal Medicine; Visit Provider Internal Medicine Cardiovascular Disease | DX: I48.21 Permanent atrial fibrillation (principal); I10 Essential (primary) hypertension; G47.33 Obstructive sleep apnea (adult) (pediatric) | CPT/HCPCS: 99214; 99213 ==

== ENCOUNTER 2022-01-21 12:12 | Emergency (ER) | payer MEDICARE, SELFPAY ==
[2022-01-21] VITALS (108 sets, daily range): BP systolic 95–128; BP diastolic 41–85; PULSE 70–131; RESP 16–41; TEMP 37.4–38.8; O2SAT 89–97
--- NOTE | 2022-01-21 13:02 | W.ED.GENAD ---
Discharge Plan Disposition Patient Disposition: STILL A PATIENT Condition: Stable Discharge Details Clinical Impression: Back pain, Leukocytosis Primary Care Provider: Carol Maya ED Provider: Benjamin Kirkpatrick Home Meds and New Rx's Prescriptions: No Action multivitamin 1 EACH tablet 1 ea PO DAILY biotine Dental BID amlodipine 5 mg tablet 5 mg PO DAILY Qty: 90 3RF Eliquis 5 mg tablet 5 mg PO q 12 hours Qty: 180 3RF atorvastatin 40 mg tablet 40 mg PO DAILY Qty: 90 3RF diltiazem HCl 360 mg capsule,extended release 24hr 360 mg PO DAILY Qty: 90 3RF furosemide 40 mg tablet 40 mg PO BID Qty: 180 3RF metoprolol succinate 50 mg tablet extended release 24 hr 50 mg PO DAILY Qty: 90 3RF potassium chloride 20 mEq tablet extended release 20 meq PO BID Qty: 180 3RF digoxin 250 mcg (0.25 mg) tablet 250 mcg PO DAILY MDD 375 mcg Qty: 90 0RF digoxin 125 mcg (0.125 mg) tablet 125 mcg PO DAILY MDD 375 mcg Qty: 90 0RF Medical Decision Making This is a 66-year-old gentleman, past medical history of hypertension, A. fib, on apixaban, diabetes, presenting to the ER for lower back pain that he felt after bending over yesterday now with spasms. He also reports noting some dried blood around his umbilicus. Clinically he appears nontoxic. Abdomen reveals morbid obesity, but there is an abrasion to his umbilicus which is likely source of his dried blood. Abdomen is soft, nontender. Low back pain is slightly worse on the left side, he reports spasm. Body habitus makes examination somewhat difficult. Given his multiple comorbidities, will obtain IV access, obtain routine screening laboratory values I would like to treat his symptoms with IV medications. Plan to provide 60 IV Norflex. Laboratory values reveal nonspecific leukocytosis of 14.69. INR of 1.3. Electrolytes unremarkable, creatinine 0.9 with a GFR of 94.78. Total bili is 3.1. Digoxin slightly subtherapeutic at 0.72. Patient unable to provide a urine sample thus far. Patient reports mild relief with IV Norflex. Denies any IV drug use. Given his back pain, leukocytosis, total bili of 3.1, plan to obtain CT imaging of abdomen and pelvis with IV contrast. This documentation was generated using Rui[employer]iation system, please disregard any oddities of phrase or misspellings. Medical Records Medical records reviewed: Yes I reviewed the patient's medical records. Lab Data Lab results reviewed: Yes I reviewed the patient's lab results. Labs: Laboratory Tests Range/Units 01/21/22 01/21/22 01/21/22 13:14 13:14 13:14 WBC (4.4-10.8) 10^3/uL 14.69 H RBC (4.36-5.78) 10^6/uL 4.66 Hgb (13.5-17.5) g/dL 14.5 Hct (40.0-50.0) % 42.9 MCV (80-95) fL 92 MCH (27.0-33.0) pg 31.1 MCHC (32.0-36.0) % 33.8 RDW (11.8-14.1) % 12.9 Plt Count (130-400) 10^3/uL 306 MPV (8.0-11.0) fL 11.2 H Immature Gran % 1.7 Neutrophils % 84.5 Lymphocytes % 8.1 Monocytes % 5.1 Eosinophils % 0.1 Basophils % 0.5 Nucleated RBC % (0.0-0.3) % 0.0 Absolute Neutrophils (1.2-6.7) 10^3/uL 12.41 H Absolute Lymphocytes (1.2-3.4) 10^3/uL 1.19 L Absolute Monocytes (0.1-0.8) 10^3/uL 0.75 Absolute Eosinophils (0.0-0.7) 10^3/uL 0.01 Absolute Basophils (0.0-0.2) 10^3/uL 0.07 PT (9.3-11.0) sec 13.3 H INR (0.9-1.1) 1.3 H APTT (21.0-27.5) sec 26.8 Sodium (136-145) mmol/L 137 Potassium (3.5-5.1) mmol/L 3.5 Chloride (98-107) mmol/L 99 Carbon Dioxide (21.0-32.0) mmol/L 26.6 Anion Gap (3-11) mmol/L 11.4 H BUN (7-18) mg/dL 17 Creatinine (0.70-1.30) mg/dL 0.9 Est GFR (CKD-EPI 2020) (mL/min/1.73m2) 94.78 Glucose (74-106) mg/dL 144 H Calcium (8.5-10.1) mg/dL 9.2 Total Bilirubin (0.2-1.0) mg/dL 3.1 H AST (15-37) U/L 31 ALT (16-63) U/L 25 Alkaline Phosphatase (46-116) U/L 91 Total Protein (6.4-8.2) g/dL 9.2 H Albumin (3.4-5.0) g/dL 3.4 Lipase (73-393) U/L 74 Digoxin (0.90-2.00) ng/mL 0.72 L HPI General Mode of arrival: EMS. Date/Time Provider Initiated Documentation: 01/21/22 12:19. Limitations to Documentation: no limitations. Information obtained by: patient and EMS. HPI Narrative: This is a 66-year-old gentleman, past medical history that includes hypertension, DM, A. fib, on apixaban, morbid obesity, presenting to the ER reporting low back pain and spasm. Patient states that yesterday he was bending over and felt a pull in his lower back subsequently developed spasms. Patient reports the pain is moderate to severe worse with movement. He denies history of chronic back issues. He also reports that he has noticed some dried blood in his bellybutton over the past couple of days but denies any abdominal pain, nausea, vomiting, change in bowel or bladder function. He has not taken any medication prior to arrival. He denies any pain radiating down either of his legs. Related Data Home Medications Medication Instructions Recorded Confirmed multivitamin 1 ea PO DAILY 07/17/12 01/21/22 Biotine dental BID 01/15/13 11/02/21 amlodipine 5 mg tablet 5 mg PO DAILY #90 tab-caps 09/04/21 01/21/22 apixaban 5 mg tablet (Eliquis) 5 mg PO q 12 hours #180 tabs 09/04/21 01/21/22 atorvastatin 40 mg tablet 40 mg PO DAILY #90 tab-caps 09/04/21 01/21/22 diltiazem HCl 360 mg 360 mg PO DAILY #90 tab-caps 09/04/21 01/21/22 capsule,extended release 24 hr furosemide 40 mg tablet 40 mg PO BID #180 tabs 09/04/21 01/21/22 metoprolol succinate 50 mg 50 mg PO DAILY #90 tabs 09/04/21 01/21/22 tablet,extended release 24 hr potassium chloride 20 mEq 20 meq PO BID #180 tab-caps 22 01/21/22 tablet,extended release digoxin 125 mcg (0.125 mg) tablet 125 mcg PO DAILY #90 tabs 12/30/21 01/21/22 digoxin 250 mcg (0.25 mg) tablet 250 mcg PO DAILY #90 tabs 12/30/21 01/21/22 Previous Rx's Medication Instructions Recorded amlodipine 5 mg tablet 5 mg PO DAILY #90 tab-caps 09/04/21 apixaban 5 mg tablet (Eliquis) 5 mg PO q 12 hours #180 tabs 09/04/21 atorvastatin 40 mg tablet 40 mg PO DAILY #90 tab-caps 09/04/21 diltiazem HCl 360 mg 360 mg PO DAILY #90 tab-caps 09/04/21 capsule,extended release 24 hr furosemide 40 mg tablet 40 mg PO BID #180 tabs 09/04/21 metoprolol succinate 50 mg 50 mg PO DAILY #90 tabs 09/04/21 tablet,extended release 24 hr potassium chloride 20 mEq 20 meq PO BID #180 tab-caps 09/04/21 tablet,extended release digoxin 125 mcg (0.125 mg) tablet 125 mcg PO DAILY #90 tabs 12/30/21 digoxin 250 mcg (0.25 mg) tablet 250 mcg PO DAILY #90 tabs 12/30/21 Allergies Allergy/AdvReac Type Severity Reaction Status Date / Time No Known Drug Allergies Allergy Verified 01/21/22 12:19 General Stated Complaint: Nk/Back Pain IZABELLA: 3 Review of Systems Constitutional Constitutional: Denies fever(s), Denies headache(s) and Denies weakness ENT Ears, Nose, Mouth, and Throat: Denies headache(s) and Denies neck pain Cardiovascular Cardiovascular: Denies chest pain and Denies dyspnea Respiratory Respiratory: Denies cough and Denies dyspnea Gastrointestinal Gastrointestinal: Denies abdominal pain, Denies melena, Denies hematochezia, Denies constipation, Denies diarrhea, Denies nausea and Denies vomiting Genitourinary Genitourinary: Denies hematuria and Denies dysuria Musculoskeletal Musculoskeletal: Reports back pain, Denies neck pain, Denies numbness, Reports stiffness and Denies tingling Integumentary/Breasts Skin/Breast: Denies rash Neurologic Neurologic: Denies headache(s), Denies numbness, Denies tingling and Denies weakness Hematologic/Lymphatic Hematologic/Lymphatic: Reports easy bleeding and Reports easy bruising PFSH All Active Problems (Updated 01/21/22 @ 15:21 by ZANA Turpin) Back pain (Acute) Leukocytosis (Acute) Sessile colonic polyp (Acute) Tubulovillous adenoma of colon (Acute) Diverticula of colon (Acute) Severe disease that does extend to the right hepatic flexure. Adenomatous polyps (Acute) Weight loss counseling, encounter for (Acute 02/11/15) Peripheral edema (Acute 12/26/17) Obstructive sleep apnea (adult) (pediatric) (Acute 09/11/12) Knee pain (Acute 06/18/13) Essential hypertension (Acute 07/17/12) BMI 50.0-59.9, adult (Acute 09/11/12) Atrial fibrillation (Acute 10/06/15) Type 2 diabetes mellitus without complication (Acute ~09/01/20) Chronic anticoagulation (Chronic ~09/2015) Dyspnea (Acute) Medical History History of cardioversion Impaired fasting glucose (06/30/11) JOSE ARMANDO (obstructive sleep apnea) 06/22/21 Sleep Clinic visit and f/u in October 2021 Surgical History History of colonoscopy (~04/08/10) History of colonoscopy with polypectomy (~03/26/21) Family History Mother No problems noted. Father , [place] at age 61. Myocardial infarction Sister No problems noted. Sister No problems noted. Son No problems noted. Son No problems noted. Daughter Personal history of malignant neoplasm age 10 of leukemia Social History Smoking/Tobacco Use Status: Never Smoking risk assessment performed?: Yes Alcohol Intake: former Drug use: Never Substance use type: does not use Household members: none Housing: house Number of Children: 3 number of grandchildren: 5 Communication Needs: Corrective Lenses current occupation: works at [employer] - [employer] Pets and animals: Yes (New dog, karina Bryant) Current gender identity: male What is your relationship status?: Panel score (0-1 are the most socially isolated patients): 0 What type of physical activity do you participate in: walking and regular exercise Duration: 30-45 minutes/day Frequency: daily Seatbelt use: always Drive intox or ride w/intox transportation driver: No Working smoke detector in home: Yes Fire extinguisher in home: Yes Carbon monox detector in home: Yes Do you feel safe at home: Yes Do you feel safe in your relationship?: Yes Exam Const General: cooperative, comfortable and no acute distress Orientation: alert, awake and oriented x3 HENMT Head: normal to inspection, normocephalic and atraumatic Eyes Conjunctivae: conjunctivae normal Neck Neck: normal visual inspection, full ROM, no meningeal signs, trachea midline, supple and nontender Resp Effort & Inspection: normal respiratory effort and able to speak in complete sentences Auscultation: clear to auscultation bilaterally Cardio Rate: regular rate Rhythm: abnormal rhythm irregularly irregular GI Inspection: obesity Palpation: soft, not firm, no guarding, no pulsatile masses and nontender Auscultation: normal bowel sounds Abdomen image: 1. There is an abrasion to his superior umbilicus in the 11 o'clock position, dried blood noted. No active bleeding Back/Spine/Pelvis Back: no CVA tenderness and back tenderness (Diffuse lumbar, slightly worse left paravertebral) Skin General skin exam: no rashes or lesions noted Neuro General: patient alert, patient awake, moves all extremities and no focal motor deficits Cognition: normal cognition Speech: speech normal Gait: normal gait and gait assisted Method: other (Cane) Sensory Exam: no sensory deficits noted Extrem General: full ROM Psych Appearance: grossly normal Mental Status: mental status grossly normal Course Vital Signs Vital signs: Vital Signs Temperature 37.4 C 01/21/22 12:15 Pulse 131 H 01/21/22 12:15 Respiratory Rate 20 01/21/22 12:15 Blood Pressure 123/85 01/21/22 12:15 Pulse Oximetry 96 01/21/22 12:15 Temperature 37.4 C 01/21/22 12:15 Temperature Source Temporal Artery Scan 01/21/22 12:15 Pulse 95 H 01/21/22 12:31 Pulse 122 H 01/21/22 12:31 Respiratory Rate 24 01/21/22 12:31 Respiratory Effort Non-Labored 01/21/22 12:37 Blood Pressure 107/72 01/21/22 12:31 Blood Pressure Mean 79 01/21/22 12:31 Blood Pressure Position Sitting 01/21/22 12:15 Pulse Oximetry 89 L 01/21/22 12:31 Oxygen Delivery Method Room Air 01/21/22 12:15 Oxygen Flow Rate 0 01/21/22 12:15 Pain Level 8 01/21/22 12:38
[2022-01-21 13:23] LABS: Abs Immature Grans 0.25 10^3/uL (0.0-0.06); Absolute Basophil Count 0.07 10^3/uL (0.0-0.2); Absolute Eosinophil Count 0.01 10^3/uL (0.0-0.7); Absolute Lymphocyte Count 1.19 10^3/uL (1.2-3.4); Absolute Monocyte Count 0.75 10^3/uL (0.1-0.8); Absolute Neutrophil Count 12.41 10^3/uL (1.2-6.7); Basophils % 0.5; Eosinophils % 0.1; HCT 42.9 % (40.0-50.0); HGB 14.5 g/dL (13.5-17.5); Immature Grans % 1.7; Lymphocytes % 8.1; MCH 31.1 pg (27.0-33.0); MCHC 33.8 % (32.0-36.0); MCV 92 fL (80-95); MPV 11.2 fL (8.0-11.0); Monocytes % 5.1; Neutrophils % 84.5; Platelet Count 306 10^3/uL (130-400); RBC 4.66 10^6/uL (4.36-5.78); RDW 12.9 % (11.8-14.1); RDW-SD 43.1 fL; WBC 14.69 10^3/uL (4.4-10.8)
[2022-01-21 13:40] LABS: PTT Activated 26.8 sec (21.0-27.5); Prothrombin Time 13.3 sec (9.3-11.0)
[2022-01-21 13:41] LABS: INR 1.3 (0.9-1.1)
--- NOTE | 2022-01-21 13:45 | DI.CT_ITS ---
Exam(s) CT ABDOMEN PELVIS W EXAM: CT ABDOMEN PELVIS W CLINICAL HISTORY: Back pain, leukocytosis, bili 3.1. TECHNIQUE: Imaging Protocol: Axial computed tomography images with coronal and sagittal reformatted images were created and reviewed CONTRAST MATERIAL: Intravenous: Omnipaque 100cc Oral: None COMPARISON: No exams were available for comparison FINDINGS: VISUALIZED LUNG BASES: No nodules nor pleural effusions evident. ABDOMEN: There is no ascites. LIVER: Left hepatic lobe is slightly prominent but there are no discrete focal hepatic lesions. No d ilatation of intrahepatic ducts. GALLBLADDER/BILIARY: Cholelithiasis noted. Calcification density noted in the gallbladder fundus. G allbladder is not edematous nor distended. CBD not dilated. PANCREAS: No evidence of pancreatic mass nor dilatation of the pancreatic duct. SPLEEN: Spleen is not enlarged. No obvious intrasplenic lesions. Splenic and portal veins are paten t. ADRENALS: There are no significant adrenal masses. KIDNEYS:There is a cyst in the upper aspect of the left kidney which measures 3 x 2 cm. No other foc al renal findings. No calculi. No hydronephrosis. No hydroureter. No obvious abnormality in the u rinary bladder.. ABDOMINAL AORTA: Fusiform infrarenal abdominal aortic aneurysm which exhibits maximum external diamet er 3 cm. The arterial megaly continues into the common iliac arteries which are prominent diameter 1 .7 cm on the right side and 1.6 cm on the left side. LYMPH NODES:There is no retroperitoneal nor paraaortic adenopathy. ABDOMINAL WALL: No evidence of significant anterior abdominal wall nor inguinal hernia. GI: There is no evidence of bowel obstruction, free air, nor abscess. PELVIS: GI: No evidence of appendicitis.Diverticulosis of the entire left side of the colon noted. However, no evidence of obvious acute diverticulitis. LYMPH NODES: There is no intrapelvic nor inguinal adenopathy. REPRODUCTIVE: Prostate not enlarged. Seminal vesicles unremarkable. Urinary bladder unremarkable. URINARY BLADDER: No calculi nor obvious masses evident OSSEOUS: No significant osseous lesions. IMPRESSION: 1. There is diverticulosis of the descending-left colon and sigmoid. No obvious acute diverticulitis . Also no evidence of appendicitis. 2. Fusiform infrarenal abdominal aortic aneurysm which measures 3 cm. Also arterial megaly of both c ommon iliac arteries as described above. No evidence of leak. 3. Cholelithiasis. There densities both calcified and noncalcified in the gallbladder fundus. No ga llbladder wall edema nor pericholecystic fluid and CBD is not dilated. Recommend follow-up ultrasoun d to ensure that there is no gallbladder mass at the level the fundus. 4. RADIATION DOSE DELIVERED: 1,661.2mGy.cm Total DLP DATA REPOSITORY: All CT scans at this facility are submitted to the National Radiology Data Registry (NRDR) Dose Index Registry (DIR) with the [employer] (ACR). RADIATION OPTIMIZATION: All CT scans at this facility use at least one of these dose optimization te chniques: automated exposure control; mA and/or kV adjustment per patient size (includes targeted exa ms where dose is matched to clinical indication); or iterative reconstruction.
[2022-01-21 13:52] LABS: ALT 25 U/L (16-63); AST 31 U/L (15-37); Albumin 3.4 g/dL (3.4-5.0); Alkaline Phosphatase 91 U/L (46-116); Anion Gap 11.4 mmol/L (3-11); BUN 17 mg/dL (7-18); Bilirubin, Total 3.1 mg/dL (0.2-1.0); CO2 26.6 mmol/L (21.0-32.0); CREATININE 0.9 mg/dL (0.70-1.30); Calcium 9.2 mg/dL (8.5-10.1); Chloride 99 mmol/L (98-107); Digoxin 0.72 ng/mL (0.90-2.00); Estimated GFR 94.78 (mL/min/1.73m2); Glucose 144 mg/dL (74-106); Lipase 74 U/L (73-393); Potassium 3.5 mmol/L (3.5-5.1); Sodium 137 mmol/L (136-145); Total Protein 9.2 g/dL (6.4-8.2)
[2022-01-21] MEDS: Orphenadrine 60 MG/2 ML VIAL IVP (14:20)
--- NOTE | 2022-01-21 15:51 | ED.PROG_ITS ---
Date of service: 01/21/22 Time of Service: 15:51 Medical Decision Making Care assumed from provider (ZANA Fournier) Please see their initial HPI, PE, and documentation. Discussed patient details and case and pending workup and disposition. Patient is hemodynamically stable, and alert and oriented. At the time of signout CT abdomen pelvis pending patient is just returning to the room from CT and urinalysis. Patient is a 66-year-old male with chief complaint of low back pain and some bleeding from the umbilicus from a small abrasion. 1700: Informed by RN, tech staff that patient is in the room complaining of being cold and chills, he is right groin. He states it began when he started the IV fluids. Tympanic temperature is 38.2. A gram of Tylenol IV ordered. Urinalysis shows positive nitrites, small blood, 20-50 WBCs. Culture is pending at this time. Will place patient on antibiotics for most likely UTI. I did discuss the results with patient who verbalizes understanding. Patient was sent home with antibiotics cephalexin and given 2 tablets. Patient was also given Flexeril for the back pain. Discussed strict return instructions and follow-up care, verbalized understanding. This text was generated using [employer] dictation system, please disregard any oddities of phrase or misspellings. Medical Records Medical records reviewed: Yes I reviewed the patient's medical records. Lab Data Lab results reviewed: Yes I reviewed the patient's lab results. Labs: Laboratory Tests Range/Units 01/21/22 01/21/22 01/21/22 13:14 13:14 13:14 WBC (4.4-10.8) 10^3/uL 14.69 H RBC (4.36-5.78) 10^6/uL 4.66 Hgb (13.5-17.5) g/dL 14.5 Hct (40.0-50.0) % 42.9 MCV (80-95) fL 92 MCH (27.0-33.0) pg 31.1 MCHC (32.0-36.0) % 33.8 RDW (11.8-14.1) % 12.9 Plt Count (130-400) 10^3/uL 306 MPV (8.0-11.0) fL 11.2 H Immature Gran % 1.7 Neutrophils % 84.5 Lymphocytes % 8.1 Monocytes % 5.1 Eosinophils % 0.1 Basophils % 0.5 Nucleated RBC % (0.0-0.3) % 0.0 Absolute Neutrophils (1.2-6.7) 10^3/uL 12.41 H Absolute Lymphocytes (1.2-3.4) 10^3/uL 1.19 L Absolute Monocytes (0.1-0.8) 10^3/uL 0.75 Absolute Eosinophils (0.0-0.7) 10^3/uL 0.01 Absolute Basophils (0.0-0.2) 10^3/uL 0.07 PT (9.3-11.0) sec 13.3 H INR (0.9-1.1) 1.3 H APTT (21.0-27.5) sec 26.8 Sodium (136-145) mmol/L 137 Potassium (3.5-5.1) mmol/L 3.5 Chloride (98-107) mmol/L 99 Carbon Dioxide (21.0-32.0) mmol/L 26.6 Anion Gap (3-11) mmol/L 11.4 H BUN (7-18) mg/dL 17 Creatinine (0.70-1.30) mg/dL 0.9 Est GFR (CKD-EPI 2020) (mL/min/1.73m2) 94.78 Glucose (74-106) mg/dL 144 H Calcium (8.5-10.1) mg/dL 9.2 Total Bilirubin (0.2-1.0) mg/dL 3.1 H AST (15-37) U/L 31 ALT (16-63) U/L 25 Alkaline Phosphatase (46-116) U/L 91 Total Protein (6.4-8.2) g/dL 9.2 H Albumin (3.4-5.0) g/dL 3.4 Lipase (73-393) U/L 74 Digoxin (0.90-2.00) ng/mL 0.72 L Sign Out Sign Out Data: Sign Out Comment: Low back pain with spasm, leukocytosis, total bili of 3.1. Received 60 IM Norflex with mild relief. Awaiting CT imaging of abdomen and pelvis with IV contrast and urinalysis. Last updated by Benjamin Kirkpatrick PA at 01/21/22 15:23 Discharge Plan Disposition Patient Disposition: HOME Condition: Stable Discharge Details Clinical Impression: Back pain, Leukocytosis, Acute UTI Primary Care Provider: Carol Maya ED Provider: Delores Dawson Home Meds and New Rx's Prescriptions: New cephalexin 500 mg tablet 500 mg PO BID 7 Days Qty: 14 0RF Rx Instructions: Take one tablet twice daily x 7 days cyclobenzaprine 10 mg tablet 10 mg PO TID PRN (Reason: muscle spasm) Qty: 10 0RF Continued multivitamin 1 EACH tablet 1 ea PO DAILY biotine Dental BID amlodipine 5 mg tablet 5 mg PO DAILY Qty: 90 3RF Eliquis 5 mg tablet 5 mg PO q 12 hours Qty: 180 3RF atorvastatin 40 mg tablet 40 mg PO DAILY Qty: 90 3RF diltiazem HCl 360 mg capsule,extended release 24hr 360 mg PO DAILY Qty: 90 3RF furosemide 40 mg tablet 40 mg PO BID Qty: 180 3RF metoprolol succinate 50 mg tablet extended release 24 hr 50 mg PO DAILY Qty: 90 3RF potassium chloride 20 mEq tablet extended release 20 meq PO BID Qty: 180 3RF digoxin 250 mcg (0.25 mg) tablet 250 mcg PO DAILY MDD 375 mcg Qty: 90 0RF digoxin 125 mcg (0.125 mg) tablet 125 mcg PO DAILY MDD 375 mcg Qty: 90 0RF Discharge Instructions Instructions: Urinary Tract Infection in Men (ED), Back Pain (ED) Additional Instructions: At this time it appears that you have a urinary tract infection. You are given the first antibiotic here in the department. Please take the antibiotic twice daily with yogurt or probiotic as instructed. Please take the muscle relaxers up to 3 times daily as needed. These may make you sleepy. Please take Tylenol or Ibuprofen with food every 4-6 hours as needed for pain and swelling. Follow up with primary care provider in 3-5 days. Return to ED sooner if any worsening or concerns. Increase oral fluids. Referrals: Carol Maya MD [Primary Care Provider] - 3 days
[2022-01-21] MEDS: Normal Saline 500 ML IV (16:26)
[2022-01-21] MEDS: ACETAMINOPHEN 1,000 MG/100 ML BTL 400 MG IVPB (17:14)
[2022-01-21 17:31] LABS: Source Nasal/Nares
[2022-01-21 17:57] LABS: Bilirubin Negative (Negative); Blood Small (Negative); Clarity Clear (Clear); Glucose Negative (Negative); Ketones Negative (Negative); Leukocyte Esterase Negative (Negative); Nitrite Positive (Negative); Specific Gravity 1.015 (1.005-1.025); pH 5.5 (5-8)
[2022-01-21 18:06] LABS: Bacteria Many HPF (Negative); C & S Indicated? Yes; Casts Negative LPF (Negative); Crystals Negative HPF (Negative); Epithelial Cells Negative HPF (Negative); Mucus Negative (Negative); RBC Negative HPF (0-2); WBC 20-50 HPF (0-5)
[2022-01-21 18:12] LABS: COVID-19 PCR Negative (Negative)
[2022-01-21] MEDS: Ketorolac 15 MG/ML VIAL IVP (18:30)
[2022-01-21] MEDS: Cephalexin 500 MG CAP PO (18:30)
[2022-01-21] MEDS: Cephalexin 500 MG CAP, 2 CAPS/BTL PO (18:50)
--- NOTE | 2022-01-21 21:07 | NUR.NOTE ---
Unable to get patient a ride home, recieved approval from Nursing [employer] to use [facility]. Email was sent to [facility] by [employer].Nursing Note:
== END 2022-01-21 19:06 | disposition home or self-care (01) ==
PROVIDERS: Physician Assistant; Emergency Provider Registered Nurse Emergency; PCP Internal Medicine
DX: D72.829 Elevated white blood cell count, unspecified (principal); N39.0 Urinary tract infection, site not specified; M54.50 Low back pain, unspecified; S30.811A Abrasion of abdominal wall, initial encounter; I10 Essential (primary) hypertension; E11.9 Type 2 diabetes mellitus without complications; I48.91 Unspecified atrial fibrillation; Z20.822 Contact with and (suspected) exposure to COVID-19; Z79.01 Long term (current) use of anticoagulants; X58.XXXA Exposure to other specified factors, initial encounter
CPT/HCPCS: 80053; 83690; 87077; 87635; 96361; 96365; 99284; 99285; J2360; 74177; 80162; 81003; 81015; 85025; 85610; 85730; 87086; 87186; J0131; J1885; J3490

== ENCOUNTER 2022-01-27 10:38 | Observation (INO) | payer MEDICARE, SELFPAY ==
[2022-01-27] VITALS (18 sets, daily range): BP systolic 91–112; BP diastolic 44–96; PULSE 82–139; RESP 18–29; TEMP 36.3–36.8; O2SAT 93–98
--- NOTE | 2022-01-27 10:30 | RT.EKG_ITS ---
APPROVED REPORT Exam: Resting ECG Reason for Exam: afib Patient Location: E HR:106 bpm ECG Measurements Heart Rate 106 AXIS [place] [id number] P [id number] QRSd 93 QRS 28 QT 321 T 254 QTc 427 Conclusion Atrial fibrillation. Nonspecific lateral st changes, similar to previous
[2022-01-27 11:24] LABS: Source Nasal/Nares
[2022-01-27 11:37] LABS: Abs Immature Grans 0.15 10^3/uL (0.0-0.06); Absolute Basophil Count 0.06 10^3/uL (0.0-0.2); Absolute Eosinophil Count 0.03 10^3/uL (0.0-0.7); Absolute Lymphocyte Count 1.18 10^3/uL (1.2-3.4); Absolute Monocyte Count 1.03 10^3/uL (0.1-0.8); Basophils % 0.4; Eosinophils % 0.2; HCT 38.4 % (40.0-50.0); HGB 12.8 g/dL (13.5-17.5); Lymphocytes % 8.2; MCH 30.5 pg (27.0-33.0); MCHC 33.3 % (32.0-36.0); MCV 92 fL (80-95); MPV 11.6 fL (8.0-11.0); Monocytes % 7.2; Platelet Count 271 10^3/uL (130-400); RBC 4.19 10^6/uL (4.36-5.78); RDW 13.3 % (11.8-14.1); RDW-SD 44.8 fL; WBC 14.33 10^3/uL (4.4-10.8)
[2022-01-27 11:42] LABS: Absolute Neutrophil Count 11.89 10^3/uL (1.2-6.7)
[2022-01-27 11:52] LABS: Digoxin 0.98 ng/mL (0.90-2.00)
[2022-01-27 11:53] LABS: COVID-19 PCR Negative (Negative)
[2022-01-27 12:00] LABS: ALT 64 U/L (16-63); AST 69 U/L (15-37); Albumin 2.6 g/dL (3.4-5.0); Alkaline Phosphatase 91 U/L (46-116); Anion Gap 8.6 mmol/L (3-11); BUN 20 mg/dL (7-18); Bilirubin, Total 1.6 mg/dL (0.2-1.0); CO2 30.4 mmol/L (21.0-32.0); CREATININE 0.9 mg/dL (0.70-1.30); Chloride 98 mmol/L (98-107); Estimated GFR 94.78 (mL/min/1.73m2); Glucose 137 mg/dL (74-106); Magnesium 1.5 mg/dL (1.8-2.4); NT-proBNP 963 pg/mL (<300); Sodium 137 mmol/L (136-145); Total Protein 7.9 g/dL (6.4-8.2); Troponin I < 50 ng/L (<or=60)
[2022-01-27 12:16] LABS: Bilirubin Negative (Negative); Blood Moderate (Negative); Clarity Cloudy (Clear); Glucose Negative (Negative); Ketones Trace mg/dL (Negative); Leukocyte Esterase Negative (Negative); Nitrite Negative (Negative); Urobilinogen 0.2 EU/dL (Up TO 0.2)
[2022-01-27 12:21] LABS: Epithelial Cells Rare HPF (Negative); RBC 20-50 HPF (0-2); WBC 0-2 HPF (0-5)
[2022-01-27 12:22] LABS: Bacteria Rare HPF (Negative); C & S Indicated? No; Casts Negative LPF (Negative); Crystals Negative HPF (Negative); Mucus Trace (Negative)
--- NOTE | 2022-01-27 12:28 | ED.GENADUL_ITS ---
Discharge Plan Disposition Patient Disposition: [facility] INPATIENT Condition: Stable Discharge Details Clinical Impression: Generalized weakness, Acute UTI, Atrial fibrillation Admit Date/Time: 01/27/22 15:39 Admit Provider: Ramandeep Quevedo Attending Provider: Ramandeep Quevedo Primary Care Provider: Analia Munroe ED Provider: Edmond Maldonado Discharge Data Discharge Date/Time-TO BE ENTERED AT DEPARTURE: 01/27/22 18:50 Medical Decision Making Patient presents to the emergency department via EMS for chief complaint of generalized weakness. Patient was recently diagnosed with a UTI and has been taking his medication until yesterday evening when he sat down in the chair and could not get up from the chair. He rested there all night but again had significant weakness this morning and so called EMS. Patient lives by himself and has significant history of atrial fibrillation with cardioversion, obesity, anticoagulated and CHF. Physical exam shows nonpitting edema to bilateral lower extremities, diminished lung sounds in the bases but otherwise clear, irregular heart rhythm with tachycardia, patient alert and oriented with no focal neurological deficits but generalized weakness is noted. We will plan on checking labs and EKG along with urinalysis. Please see physician interpretation for full interpretation of EKG but patient has been atrial fibrillation with rapid ventricular response. Review of labs show an elevated white blood cell count with shift, slight anemia with hemoglobin of 12.2, potassium of 3 so we will replete orally, mag of 1.5 so we will also give oral repletion, elevation of total bilirubin AST and ALT with negative initial troponin and BNP slightly elevated at 963. Urine shows ketones and blood but otherwise no longer looks infected. Patient is negative for COVID. Will give patient his normal daily medications and will give 1 dose of Rocephin due to patient not completing his antibiotics for UTI and still having white count. Patient does report that his typical heart rate is between the 101 110 with his A. fib due to having significant hypotension with increase of his medications. We will make this a goal for his A. fib after he receives his oral medications. Patient's chest x-ray was reviewed and shows no acute worrisome findings. Patient reassessed and does have a heart rate between 100-110 on average. Due to patient's severe weakness do feel that patient should be admitted for PT consult and continued medication adjustments as needed for his A. fib with RVR Imaging Data Radiologic Study: Imaging: X-Ray Radiologist's impression: FINDINGS: LUNGS: Clear. No pleural abnormality seen. HEART: Mildly enlarged. AORTA: Normal. BONES: Unremarkable for age. Soft tissues: Unremarkable. IMPRESSION: No acute findings. Lab Data Lab results reviewed: Yes I reviewed the patient's lab results. HPI General Mode of arrival: EMS . Date/Time Provider Initiated Documentation: 01/27/22 11:04 . Limitations to Documentation: no limitations . Information obtained by: patient, RN notes reviewed and old records reviewed . History of Present Illness 66 year old M presents to the emergency department with the chief complaint of weakness, described as severe, Quality is described as other (denies pain ), Patient started experiencing this day(s) (5) and it has been constant. No relieving factors improve symptom(s), No exacerbating factors reported . Patient notes malaise and shortness of breath; denies fever/chills and nausea/vomiting. Patient did receive the following treatments prior to arrival, none Related Data Home Medications Medication Instructions Recorded Confirmed multivitamin 1 ea PO DAILY 07/17/12 01/27/22 Biotene Dry Mouth Oral Rinse dental BID PRN ##0 01/15/13 11/02/21 (saliva substitute combo no.9) amlodipine 5 mg tablet 5 mg PO DAILY #90 tab-caps 09/04/21 01/27/22 apixaban 5 mg tablet (Eliquis) 5 mg PO q 12 hours #180 tabs 09/04/21 01/27/22 atorvastatin 40 mg tablet 40 mg PO DAILY #90 tab-caps 09/04/21 01/27/22 diltiazem HCl 360 mg 360 mg PO DAILY #90 tab-caps 09/04/21 01/27/22 capsule,extended release 24 hr furosemide 40 mg tablet 40 mg PO BID #180 tabs 09/04/21 01/27/22 metoprolol succinate 50 mg 50 mg PO DAILY #90 tabs 09/04/21 01/27/22 tablet,extended release 24 hr potassium chloride 20 mEq 20 meq PO BID #180 tab-caps 09/04/21 01/27/22 tablet,extended release digoxin 125 mcg (0.125 mg) tablet 125 mcg PO DAILY #90 tabs 12/30/21 01/27/22 digoxin 250 mcg (0.25 mg) tablet 250 mcg PO DAILY #90 tabs 12/30/21 01/27/22 acetaminophen 325 mg tablet 650 mg PO DAILY PRN 01/27/22 01/27/22 lidocaine 5 % topical patch 1 patch topical Q24H #15 ea 01/30/22 tramadol 50 mg tablet 100 mg PO Q6H PRN PRN #20 tabs 01/30/22 Previous Rx's Medication Instructions Recorded amlodipine 5 mg tablet 5 mg PO DAILY #90 tab-caps 09/04/21 apixaban 5 mg tablet (Eliquis) 5 mg PO q 12 hours #180 tabs 09/04/21 atorvastatin 40 mg tablet 40 mg PO DAILY #90 tab-caps 09/04/21 diltiazem HCl 360 mg 360 mg PO DAILY #90 tab-caps 09/04/21 capsule,extended release 24 hr furosemide 40 mg tablet 40 mg PO BID #180 tabs 09/04/21 metoprolol succinate 50 mg 50 mg PO DAILY #90 tabs 09/04/21 tablet,extended release 24 hr potassium chloride 20 mEq 20 meq PO BID #180 tab-caps 09/04/21 tablet,extended release digoxin 125 mcg (0.125 mg) tablet 125 mcg PO DAILY #90 tabs 12/30/21 digoxin 250 mcg (0.25 mg) tablet 250 mcg PO DAILY #90 tabs 12/30/21 lidocaine 5 % topical patch 1 patch topical Q24H #15 ea 01/30/22 tramadol 50 mg tablet 100 mg PO Q6H PRN PRN #20 tabs 01/30/22 Allergies Allergy/AdvReac Type Severity Reaction Status Date / Time No Known Drug Allergies Allergy Verified 01/21/22 12:19 General Stated Complaint: GenMedical IZABELLA: 3 Review of Systems Constitutional Constitutional: Denies chills, Denies fever(s), Reports lethargy, Reports malaise, Reports poor appetite and Reports weakness Eyes Eyes: Denies change in vision ENT Ears, Nose, Mouth, and Throat: Denies dizziness and Denies sore throat Cardiovascular Cardiovascular: Denies chest pain, Denies syncope, Reports leg edema, Reports dyspnea and Reports dyspnea on exertion Respiratory Respiratory: Denies cough, Reports dyspnea and Reports dyspnea on exertion Gastrointestinal Gastrointestinal: Denies abdominal pain, Denies diarrhea and Denies nausea Genitourinary Genitourinary: Denies dysuria, Denies urinary hesitancy, Denies urinary incontinence and Denies urinary urgency Musculoskeletal Musculoskeletal: Denies myalgias and Denies arthralgias Integumentary/Breasts Skin/Breast: Denies rash and Denies unusual bruising Neurologic Neurologic: Denies dizziness, Denies syncope, Denies localized weakness, Denies sensory deficit and Reports weakness PFSH All Active Problems (Updated 01/31/22 @ 00:09 by LEAH SY) Lower back pain (Acute) Leucocytosis (Acute) Back pain (Acute) Leukocytosis (Acute) Generalized weakness (Acute) Sessile colonic polyp (Acute) Tubulovillous adenoma of colon (Acute) Diverticula of colon (Acute) Severe disease that does extend to the right hepatic flexure. Adenomatous polyps (Acute) Weight loss counseling, encounter for (Acute 02/11/15) Peripheral edema (Chronic 12/26/17) Obstructive sleep apnea (adult) (pediatric) (Chronic 09/11/12) Knee pain (Acute 06/18/13) Essential hypertension (Acute 07/17/12) BMI 50.0-59.9, adult (Acute 09/11/12) Atrial fibrillation (Acute 10/06/15) Type 2 diabetes mellitus without complication (Acute ~09/01/20) Chronic anticoagulation (Chronic ~09/2015) Dyspnea (Acute) Medical History History of cardioversion Impaired fasting glucose (06/30/11) JOSE ARMANDO (obstructive sleep apnea) 06/22/21 Sleep Clinic visit and f/u in October 2021 Surgical History History of colonoscopy (~04/08/10) History of colonoscopy with polypectomy (~03/26/21) Family History Mother No problems noted. Father , PA at age 61. Myocardial infarction Sister No problems noted. Sister No problems noted. Son No problems noted. Son No problems noted. Daughter Personal history of malignant neoplasm age 10 of leukemia Social History Smoking/Tobacco Use Status: Never Smoking risk assessment performed?: Yes Alcohol Intake: former Drug use: Never Substance use type: does not use Household members: none Housing: house Number of Children: 3 number of grandchildren: 5 Communication Needs: Corrective Lenses current occupation: works at [employer] - [employer] Pets and animals: Yes (New dog, karina Bryant) Current gender identity: male What is your relationship status?: Panel score (0-1 are the most socially isolated patients): 0 What type of physical activity do you participate in: walking and regular exercise Duration: 30-45 minutes/day Frequency: daily Seatbelt use: always 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 Working smoke detector in home: Yes Fire extinguisher in home: Yes Carbon monox detector in home: Yes Do you feel safe at home: Yes Do you feel safe in your relationship?: Yes Exam Const General: cooperative, comfortable and no acute distress Nutritional Appearance: obese Orientation: alert, awake and oriented x3 HENMT Mouth: moist mucous membranes Resp Effort & Inspection: normal respiratory effort, able to speak in complete sentences and no respiratory distress Cardio Rate: tachycardic Rhythm: abnormal rhythm irregularly irregular Pulses: normal peripheral pulses GI Inspection: obesity Palpation: not soft, not firm, no guarding and nontender Auscultation: normal bowel sounds Back/Spine/Pelvis Back: no CVA tenderness Thoracic/Lumbar Spine: thoracic and lumbar spine normal to inspection Skin General skin exam: no rashes or lesions noted Neuro General: patient alert, patient awake, patient oriented x3, moves all extremities and no focal motor deficits Cognition: normal cognition Speech: speech normal Motor: strength abnormal (Generalized weakness) Sensory Exam: no sensory deficits noted Course Vital Signs Vital signs: Vital Signs Temperature 36.3 C L 01/27/22 10:32 Pulse 126 H 01/27/22 10:32 Respiratory Rate 18 01/27/22 10:32 Temperature 36.3 C L 01/27/22 10:32 Temperature Source Tympanic 01/27/22 10:32 Pulse 126 H 01/27/22 10:32 Respiratory Rate 18 01/27/22 10:38 Respiratory Effort Non-Labored 01/27/22 10:38 Respiratory Depth Normal 01/27/22 10:38 Respiratory Pattern Normal 01/27/22 10:38 Lab/Test Results Lab/Test Results: Laboratory Tests Range/Units 01/27/22 01/27/22 01/27/22 11:12 11:24 11:24 WBC (4.4-10.8) 10^3/uL 14.33 H RBC (4.36-5.78) 10^6/uL 4.19 L Hgb (13.5-17.5) g/dL 12.8 L Hct (40.0-50.0) % 38.4 L MCV (80-95) fL 92 MCH (27.0-33.0) pg 30.5 MCHC (32.0-36.0) % 33.3 RDW (11.8-14.1) % 13.3 Plt Count (130-400) 10^3/uL 271 MPV (8.0-11.0) fL 11.6 H Immature Gran % 1.0 Neutrophils % 83.0 Lymphocytes % 8.2 Monocytes % 7.2 Eosinophils % 0.2 Basophils % 0.4 Nucleated RBC % (0.0-0.3) % 0.0 Absolute Neutrophils (1.2-6.7) 10^3/uL 11.89 H Absolute Lymphocytes (1.2-3.4) 10^3/uL 1.18 L Absolute Monocytes (0.1-0.8) 10^3/uL 1.03 H Absolute Eosinophils (0.0-0.7) 10^3/uL 0.03 Absolute Basophils (0.0-0.2) 10^3/uL 0.06 Sodium (136-145) mmol/L 137 Potassium (3.5-5.1) mmol/L 3.0 L Chloride (98-107) mmol/L 98 Carbon Dioxide (21.0-32.0) mmol/L 30.4 Anion Gap (3-11) mmol/L 8.6 BUN (7-18) mg/dL 20 H Creatinine (0.70-1.30) mg/dL 0.9 Est GFR (CKD-EPI 2020) (mL/min/1.73m2) 94.78 Glucose (74-106) mg/dL 137 H Calcium (8.5-10.1) mg/dL 9.0 Magnesium (1.8-2.4) mg/dL 1.5 L Total Bilirubin (0.2-1.0) mg/dL 1.6 H AST (15-37) U/L 69 H ALT (16-63) U/L 64 H Alkaline Phosphatase (46-116) U/L 91 Troponin I (<or=60) ng/L < 50 NT-Pro-B Natriuret Pep (<300) pg/mL 963 H Total Protein (6.4-8.2) g/dL 7.9 Albumin (3.4-5.0) g/dL 2.6 L Urine Color (Yellow) Urine Clarity (Clear) Urine pH (5-8) Ur Specific [place] (1.005-1.025) Urine Protein (Negative) mg/dL Urine Ketones (Negative) mg/dL Urine Blood (Negative) Urine Nitrite (Negative) Urine Bilirubin (Negative) Urine Urobilinogen (Up TO 0.2) EU/dL Ur Leukocyte Esterase (Negative) Urine RBC (0-2) HPF Urine WBC (0-5) HPF Ur Epithelial Cells (Negative) HPF Urine Crystals (Negative) HPF Urine Bacteria (Negative) HPF Urine Casts (Negative) LPF Urine Mucus (Negative) Ur Culture Indicated? Urine Glucose (Negative) mg/dL Digoxin (0.90-2.00) ng/mL COVID-19 Source Nasal/Nares SARS-CoV-2 (PCR) (Negative) Negative Range/Units 01/27/22 01/27/22 11:24 11:55 WBC (4.4-10.8) 10^3/uL RBC (4.36-5.78) 10^6/uL Hgb (13.5-17.5) g/dL Hct (40.0-50.0) % MCV (80-95) fL MCH (27.0-33.0) pg MCHC (32.0-36.0) % RDW (11.8-14.1) % Plt Count (130-400) 10^3/uL MPV (8.0-11.0) fL Immature Gran % Neutrophils % Lymphocytes % Monocytes % Eosinophils % Basophils % Nucleated RBC % (0.0-0.3) % Absolute Neutrophils (1.2-6.7) 10^3/uL Absolute Lymphocytes (1.2-3.4) 10^3/uL Absolute Monocytes (0.1-0.8) 10^3/uL Absolute Eosinophils (0.0-0.7) 10^3/uL Absolute Basophils (0.0-0.2) 10^3/uL Sodium (136-145) mmol/L Potassium (3.5-5.1) mmol/L Chloride (98-107) mmol/L Carbon Dioxide (21.0-32.0) mmol/L Anion Gap (3-11) mmol/L BUN (7-18) mg/dL Creatinine (0.70-1.30) mg/dL Est GFR (CKD-EPI 2020) (mL/min/1.73m2) Glucose (74-106) mg/dL Calcium (8.5-10.1) mg/dL Magnesium (1.8-2.4) mg/dL Total Bilirubin (0.2-1.0) mg/dL AST (15-37) U/L ALT (16-63) U/L Alkaline Phosphatase (46-116) U/L Troponin I (<or=60) ng/L NT-Pro-B Natriuret Pep (<300) pg/mL Total Protein (6.4-8.2) g/dL Albumin (3.4-5.0) g/dL Urine Color (Yellow) Yellow Urine Clarity (Clear) Cloudy Urine pH (5-8) 6.0 Ur Specific [place] (1.005-1.025) 1.020 Urine Protein (Negative) mg/dL Negative Urine Ketones (Negative) mg/dL Trace H Urine Blood (Negative) Moderate H Urine Nitrite (Negative) Negative Urine Bilirubin (Negative) Negative Urine Urobilinogen (Up TO 0.2) EU/dL 0.2 Ur Leukocyte Esterase (Negative) Negative Urine RBC (0-2) HPF 20-50 H Urine WBC (0-5) HPF 0-2 Ur Epithelial Cells (Negative) HPF Rare Urine Crystals (Negative) HPF Negative Urine Bacteria (Negative) HPF Rare Urine Casts (Negative) LPF Negative Urine Mucus (Negative) Trace Ur Culture Indicated? No Urine Glucose (Negative) mg/dL Negative Digoxin (0.90-2.00) ng/mL 0.98 COVID-19 Source SARS-CoV-2 (PCR) (Negative)
--- NOTE | 2022-01-27 12:30 | DI.RAD_ITS ---
Exam(s) XR PORTABLE CHEST AP EXAM: XR PORTABLE CHEST AP CLINICAL HISTORY: shortness of breath TECHNIQUE: 2D digital imaging was performed. COMPARISON: CT CT ABDOMEN PELVIS W from 01/21/2022 FINDINGS: LUNGS: Clear. No pleural abnormality seen. HEART: Mildly enlarged. AORTA: Normal. BONES: Unremarkable for age. Soft tissues: Unremarkable. IMPRESSION: No acute findings. DATA REPOSITORY: RADIATION DOSE DELIVERED:
--- NOTE | 2022-01-27 12:57 | TELEP.MEDR_ITS ---
Date of service: 01/27/22 Time of Service: 12:57 [facility] Home Med Rec Allergies Allergies: No Known Drug Allergies Allergy (Verified 01/21/22 12:19) Interview Person Interviewed: * Patient Quality Quality of Interview/Accuracy of Medication List: Good Sources Sources used to compile medication list: [employer] Medication List and Retail Pharmacy Changes made to Home Medication List: ADDITIONS: * Acetaminophen 650mg PO daily PRN DELETIONS: * None CHANGES: * None Additional Notes Additional Notes: * Patient reports he was not able to take any medications this morning * Digoxin: total daily dose is 375mcg PO daily. Per [facility], patient is supposed to be taking 1x 125mcg tab + 1x 250mg tab to get this dose. However, the patient reports taking 1.5x 250mcg tab. For outpatient purposes both entries/strengths were left on the home medication list * Keflex- mid way through 7day course for UTI; patient only had 2 days left to finish * Amlodipine/Diltiazem: Patient is taking both at home Recommended Changes Recommended Changes(reason for recommendation): * Check digoxin level Attestation: The home medication list is now updated to the best of my knowledge and is ready to be reconciled by the provider. Please contact the [facility] Medication Reconciliation Pharmacist at for any questions.
--- NOTE | 2022-01-27 12:57 | TELEP.MEDREC ---
Date of service: 01/27/22 Time of Service: 12:57 [facility] Home Med Rec Allergies Allergies: No Known Drug Allergies Allergy (Verified 01/21/22 12:19) Interview Person Interviewed: Patient Quality Quality of Interview/Accuracy of Medication List: Good Sources Sources used to compile medication list: [facility] Medication List and Retail Pharmacy Changes made to Home Medication List: ADDITIONS: Acetaminophen 650mg PO daily PRN DELETIONS: None CHANGES: None Additional Notes Additional Notes: Patient reports he was not able to take any medications this morning Digoxin: total daily dose is 375mcg PO daily. Per [facility], patient is supposed to be taking 1x 125mcg tab + 1x 250mg tab to get this dose. However, the patient reports taking 1.5x 250mcg tab. For outpatient purposes both entries/strengths were left on the home medication list Keflex- mid way through 7day course for UTI; patient only had 2 days left to finish Amlodipine/Diltiazem: Patient is taking both at home Recommended Changes Recommended Changes(reason for recommendation): Check digoxin level Attestation: The home medication list is now updated to the best of my knowledge and is ready to be reconciled by the provider. Please contact the [facility] Medication Reconciliation Pharmacist at for any questions.
[2022-01-27] MEDS: dilTIAZem CD 180 MG CAPCR 360 MG PO (13:01)
[2022-01-27] MEDS: Metoprolol CR 50 MG TABCR PO (13:01)
[2022-01-27] MEDS: Furosemide 40 MG TAB PO (13:01)
[2022-01-27] MEDS: Potassium Chloride 20 MEQ TABCR 40 MEQ PO (13:01)
[2022-01-27] MEDS: Digoxin 0.125 MG TAB PO (13:02)
[2022-01-27] MEDS: Magnesium Oxide 400 MG TAB PO (13:02)
[2022-01-27] MEDS: Apixaban 5 MG TAB PO ×2 (13:05→19:52)
[2022-01-27 14:38] LABS: Troponin I < 50 ng/L (<or=60)
--- NOTE | 2022-01-27 18:20 | HPE_ITS ---
Date of service: 01/27/22 Time of Service: 18:20 Assessment and Plan Assessment and plan (1) Acute UTI: Status: Acute Assessment and plan: Seen 01/21 for UTI. Returns with more symptoms and very weak. IVF, continue prematurely stopped abx, recheck urine in am. ; (2) Generalized weakness: Status: Acute Assessment and plan: Same as above PT; strengthening - interested in OP PT (3) Peripheral edema: Status: Chronic Assessment and plan: BLE 2+ pitting edema from feet to knees. Dwight wraps - TEDS too tight (4) Obstructive sleep apnea (adult) (pediatric): Status: Chronic Assessment and plan: Stable (5) Chronic anticoagulation: Status: Chronic Assessment and plan: Continue Apixiban TEDS to small - changed to dwight wraps (6) DVT prophylaxis: Status: Acute Assessment and plan: On Apixiban (7) Discharge planning issues: Status: Acute Assessment and plan: Home on Sat if all is well. He is stronger, if electrolytes are reasonable. OP PT Discussed with Dr Quevedo History of Present Illness History of Present Illness Chief Complaint: Weakness Narrative: This is a 66 year old? male that presented to the [facility] emergency department via EMS with the chief complaint of weakness.?He stated he has had generalized weakness for five days. The patient was recently diagnosed with a UTI and has been taking his antibiotic medication until yesterday evening when he sat down in the chair and could not get up from the chair.? He rested there all night but again had significant weakness this morning and could not get out of the chair, he called EMS.? Patient lives by himself and has significant history of atrial fibrillation with cardioversion, obesity, anticoagulated and CHF.? Physical exam shows nonpitting edema to bilateral lower extremities, diminished lung sounds in the bases but otherwise clear, irregular heart rhythm with tachycardia, patient alert and oriented with no focal neurological deficits but generalized weakness is noted.? Please see physician interpretation for full interpretation of EKG but patient has been atrial fibrillation with rapid ventricular response. Review of labs showed an elevated white blood cell count with shift, slight anemia with hemoglobin of 12.2, potassium of 3 so we will replete orally, mag of 1.5 so we will also give oral repletion, elevation of total bilirubin AST and ALT with negative initial troponin and BNP slightly elevated at 963.? Urine shows ketones and blood but otherwise no longer looks infected.? Patient is negative for COVID.? Will give patient his normal daily medications and will give 1 dose of Rocephin due to patient not completing his antibiotics for UTI and still having white count.? Patient does report that his typical heart rate is between the 101 110 with his A. fib due to having significant hypotension with increase of his medications.? We will make this a goal for his A. fib after he receives his oral medications Patient's chest x-ray was reviewed and showed no acute worrisome findings.? On being reassessed he had a heart rate between 100-110 bpm on average. He was placed on observation on the medical floor stable. Review of Systems All systems reviewed & are unremarkable except as noted in HPI and below PFSH All Active Problems (Updated 01/28/22 @ 17:55 by Gauri Burgess NP) DVT prophylaxis (Acute) Discharge planning issues (Acute) Back pain (Acute) Leukocytosis (Acute) Acute UTI (Acute) Generalized weakness (Acute) Sessile colonic polyp (Acute) Tubulovillous adenoma of colon (Acute) Diverticula of colon (Acute) Severe disease that does extend to the right hepatic flexure. Adenomatous polyps (Acute) Weight loss counseling, encounter for (Acute 02/11/15) Peripheral edema (Chronic 12/26/17) Obstructive sleep apnea (adult) (pediatric) (Chronic 09/11/12) Knee pain (Acute 06/18/13) Essential hypertension (Acute 07/17/12) BMI 50.0-59.9, adult (Acute 09/11/12) Atrial fibrillation (Acute 10/06/15) Type 2 diabetes mellitus without complication (Acute ~09/01/20) Chronic anticoagulation (Chronic ~09/2015) Dyspnea (Acute) Medical History History of cardioversion Impaired fasting glucose (06/30/11) JOSE ARMANDO (obstructive sleep apnea) 06/22/21 Sleep Clinic visit and f/u in October 2021 Surgical History History of colonoscopy (~04/08/10) History of colonoscopy with polypectomy (~03/26/21) Family History Mother No problems noted. Father , MA at age 61. Myocardial infarction Sister No problems noted. Sister No problems noted. Son No problems noted. Son No problems noted. Daughter Personal history of malignant neoplasm age 10 of leukemia Social History Smoking/Tobacco Use Status: Never Smoking risk assessment performed?: Yes Alcohol Intake: former Drug use: Never Substance use type: does not use Household members: none Housing: house Number of Children: 3 number of grandchildren: 5 Communication Needs: Corrective Lenses current occupation: works at [employer] - retired Pets and animals: Yes (New dog, namned Annette) Current gender identity: male What is your relationship status?: Panel score (0-1 are the most socially isolated patients): 0 What type of physical activity do you participate in: walking and regular exercise Duration: 30-45 minutes/day Frequency: daily Seatbelt use: always Drive intox or ride w/intox motor bus driver: No Working smoke detector in home: Yes Fire extinguisher in home: Yes Carbon monox detector in home: Yes Do you feel safe at home: Yes Do you feel safe in your relationship?: Yes Meds Allergies and Home Medications Allergies Allergy/AdvReac Type Severity Reaction Status Date / Time No Known Drug Allergies Allergy Verified 01/21/22 12:19 Home Medications Medication Instructions Recorded Confirmed Type multivitamin 1 ea PO DAILY 07/17/12 01/27/22 History Biotene Dry Mouth Oral Rinse dental BID PRN ##0 01/15/13 11/02/21 History (saliva substitute combo no.9) amlodipine 5 mg tablet 5 mg PO DAILY #90 tab-caps 09/04/21 01/27/22 Rx apixaban 5 mg tablet (Eliquis) 5 mg PO q 12 hours #180 tabs 09/04/21 01/27/22 Rx atorvastatin 40 mg tablet 40 mg PO DAILY #90 tab-caps 09/04/21 01/27/22 Rx diltiazem HCl 360 mg 360 mg PO DAILY #90 tab-caps 09/04/21 01/27/22 Rx capsule,extended release 24 hr furosemide 40 mg tablet 40 mg PO BID #180 tabs 09/04/21 01/27/22 Rx metoprolol succinate 50 mg 50 mg PO DAILY #90 tabs 09/04/21 01/27/22 Rx tablet,extended release 24 hr potassium chloride 20 mEq 20 meq PO BID #180 tab-caps 09/04/21 01/27/22 Rx tablet,extended release digoxin 125 mcg (0.125 mg) tablet 125 mcg PO DAILY #90 tabs 12/30/21 01/27/22 Rx digoxin 250 mcg (0.25 mg) tablet 250 mcg PO DAILY #90 tabs 12/30/21 01/27/22 Rx cephalexin 500 mg tablet 500 mg PO BID 7 days #14 tabs 01/21/22 01/27/22 Rx cyclobenzaprine 10 mg tablet 10 mg PO TID PRN muscle spasm #10 01/21/22 01/27/22 Rx tabs acetaminophen 325 mg tablet 650 mg PO DAILY PRN 01/27/22 01/27/22 History Exam Const General: cooperative, comfortable and no acute distress Nutritional Appearance: obese Orientation: alert, awake and oriented x3 HENMT Mouth: moist mucous membranes Resp Effort & Inspection: normal respiratory effort, able to speak in complete sentences and no respiratory distress Cardio Rate: tachycardic Rhythm: abnormal rhythm irregularly irregular Pulses: normal peripheral pulses GI Inspection: obesity Palpation: not soft, not firm, no guarding and nontender Auscultation: normal bowel sounds Back/Spine/Pelvis Back: no CVA tenderness Thoracic/Lumbar Spine: thoracic and lumbar spine normal to inspection Skin General skin exam: no rashes or lesions noted Neuro General: patient alert, patient awake, patient oriented x3, moves all extremities and no focal motor deficits Cognition: normal cognition Speech: speech normal Motor: strength abnormal (Generalized weakness) Sensory Exam: no sensory deficits noted Results Labs Result diagrams: 01/28/22 07:00 01/28/22 07:00 Labs: Laboratory Results - last 24 hr 01/27/22 01/27/22 01/27/22 11:12 11:24 11:24 WBC 14.33 H RBC 4.19 L Hgb 12.8 L Hct 38.4 L MCV 92 MCH 30.5 MCHC 33.3 RDW 13.3 Plt Count 271 MPV 11.6 H Immature Gran % 1.0 Neutrophils % 83.0 Lymphocytes % 8.2 Monocytes % 7.2 Eosinophils % 0.2 Basophils % 0.4 Nucleated RBC % 0.0 Absolute Neutrophils 11.89 H Absolute Lymphocytes 1.18 L Absolute Monocytes 1.03 H Absolute Eosinophils 0.03 Absolute Basophils 0.06 Sodium 137 Potassium 3.0 L Chloride 98 Carbon Dioxide 30.4 Anion Gap 8.6 BUN 20 H Creatinine 0.9 Est GFR (CKD-EPI 2020) 94.78 Glucose 137 H Calcium 9.0 Magnesium 1.5 L Total Bilirubin 1.6 H AST 69 H ALT 64 H Alkaline Phosphatase 91 Troponin I < 50 NT-Pro-B Natriuret Pep 963 H Total Protein 7.9 Albumin 2.6 L Urine Color Urine Clarity Urine pH Ur Specific [place] Urine Protein Urine Ketones Urine Blood Urine Nitrite Urine Bilirubin Urine Urobilinogen Ur Leukocyte Esterase Urine RBC Urine WBC Ur Epithelial Cells Urine Crystals Urine Bacteria Urine Casts Urine Mucus Ur Culture Indicated? Urine Glucose Digoxin COVID-19 Source Nasal/Nares SARS-CoV-2 (PCR) Negative 01/27/22 01/27/22 01/27/22 11:24 11:55 14:00 WBC RBC Hgb Hct MCV MCH MCHC RDW Plt Count MPV Immature Gran % Neutrophils % Lymphocytes % Monocytes % Eosinophils % Basophils % Nucleated RBC % Absolute Neutrophils Absolute Lymphocytes Absolute Monocytes Absolute Eosinophils Absolute Basophils Sodium Potassium Chloride Carbon Dioxide Anion Gap BUN Creatinine Est GFR (CKD-EPI 2020) Glucose Calcium Magnesium Total Bilirubin AST ALT Alkaline Phosphatase Troponin I < 50 NT-Pro-B Natriuret Pep Total Protein Albumin Urine Color Yellow Urine Clarity Cloudy Urine pH 6.0 Ur Specific [place] 1.020 Urine Protein Negative Urine Ketones Trace H Urine Blood Moderate H Urine Nitrite Negative Urine Bilirubin Negative Urine Urobilinogen 0.2 Ur Leukocyte Esterase Negative Urine RBC 20-50 H Urine WBC 0-2 Ur Epithelial Cells Rare Urine Crystals Negative Urine Bacteria Rare Urine Casts Negative Urine Mucus Trace Ur Culture Indicated? No Urine Glucose Negative Digoxin 0.98 COVID-19 Source SARS-CoV-2 (PCR) Last Vital Signs Temp 36.3 C L 01/27/22 10:32 Pulse 94 H 01/27/22 14:45 Resp 27 H 01/27/22 15:50 BP 103/53 L 01/27/22 14:45 Pulse Ox 97 01/27/22 15:50
[2022-01-27] MEDS: Potassium Chloride 20 MEQ TABCR PO (19:51)
[2022-01-27] MEDS: Normal Saline Flush 10 ML SYR IVP (22:03)
[2022-01-27] MEDS: Acetaminophen 325 MG TAB PO (22:12)
[2022-01-27] MEDS: traMADol 50 MG TAB 100 MG PO (23:41)
[2022-01-28] VITALS (14 sets, daily range): BP systolic 95–139; BP diastolic 62–87; PULSE 86–140; RESP 12–20; TEMP 36.3–37.4; O2SAT 91–96
[2022-01-28 07:31] LABS: Abs Immature Grans 0.22 10^3/uL (0.0-0.06); Absolute Basophil Count 0.07 10^3/uL (0.0-0.2); Absolute Eosinophil Count 0.08 10^3/uL (0.0-0.7); Absolute Lymphocyte Count 1.34 10^3/uL (1.2-3.4); Absolute Monocyte Count 0.99 10^3/uL (0.1-0.8); Absolute Neutrophil Count 9.05 10^3/uL (1.2-6.7); Basophils % 0.6; Eosinophils % 0.7; HCT 39.3 % (40.0-50.0); HGB 12.7 g/dL (13.5-17.5); Immature Grans % 1.9; Lymphocytes % 11.4; MCHC 32.3 % (32.0-36.0); MCV 93 fL (80-95); MPV 11.5 fL (8.0-11.0); Monocytes % 8.4; Platelet Count 325 10^3/uL (130-400); RBC 4.23 10^6/uL (4.36-5.78); RDW 13.4 % (11.8-14.1); RDW-SD 46.3 fL; WBC 11.75 10^3/uL (4.4-10.8)
[2022-01-28 07:48] LABS: Anion Gap 7.7 mmol/L (3-11); BUN 15 mg/dL (7-18); CO2 29.3 mmol/L (21.0-32.0); CREATININE 0.9 mg/dL (0.70-1.30); Chloride 100 mmol/L (98-107); Estimated GFR 94.78 (mL/min/1.73m2); Glucose 129 mg/dL (74-106); Magnesium 1.6 mg/dL (1.8-2.4); Potassium 3.2 mmol/L (3.5-5.1); Sodium 137 mmol/L (136-145)
[2022-01-28] MEDS: Apixaban 5 MG TAB PO ×2 (08:44→21:19)
[2022-01-28] MEDS: Atorvastatin 40 MG TAB PO (08:44)
[2022-01-28] MEDS: Multivitamin TAB 1 TAB PO (08:45)
[2022-01-28] MEDS: Potassium Chloride 20 MEQ TABCR PO ×2 (08:45→21:18)
[2022-01-28] MEDS: Furosemide 40 MG TAB PO ×2 (08:45→16:52)
[2022-01-28] MEDS: Normal Saline Flush 10 ML SYR IVP ×3 (08:46→21:18)
--- NOTE | 2022-01-28 09:34 | PDOC.CMIN ---
- If Service Date Differs Date of service: 01/28/22 Time of Service: 09:34 Care Management Initial Assess REASON FOR HOSPITALIZATION:: Uti PAST MEDICAL HISTORY/PAST SURGICAL HISTORY:: All Active Problems (Updated 01/27/22 @ 18:43 by Gauri Burgess NP). DVT prophylaxis (Acute). Discharge planning issues (Acute). Back pain (Acute). Leukocytosis (Acute). Acute UTI (Acute). Generalized weakness (Acute). Sessile colonic polyp (Acute). Tubulovillous adenoma of colon (Acute). Diverticula of colon (Acute). Severe disease that does extend to the right hepatic flexure. Adenomatous polyps (Acute). Weight loss counseling, encounter for (Acute 02/11/15). Peripheral edema (Acute 12/26/17). Obstructive sleep apnea (adult) (pediatric) (Acute 09/11/12). Knee pain (Acute 06/18/13). Essential hypertension (Acute 07/17/12). BMI 50.0-59.9, adult (Acute 09/11/12). Atrial fibrillation (Acute 10/06/15). Type 2 diabetes mellitus without complication (Acute ~09/01/20). Chronic anticoagulation (Chronic ~09/2015). Dyspnea (Acute). Medical History . History of cardioversion. Impaired fasting glucose (06/30/11). JOSE ARMANDO (obstructive sleep apnea). 06/22/21 Sleep Clinic visit and f/u in October 2021. Surgical History . History of colonoscopy (~04/08/10). History of colonoscopy with polypectomy (~03/26/21) PREVIOUS FUNCTIONAL STATUS/SOCIAL/FAMILY SUPPORTS:: Don lives alone in a single family home in [place], [place] It is his family home and he moved in wwith his mother and cared for her until she a few years ago. Don has 2 sons but they live out of state. One son lives in [place] and has 5 children and the other son lives in [place] with his and daughter. 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 Don is independent at baseline, although he does use a cane from time to time. CURRENT FUNCTIONAL STATUS:: Don was sitting up in a chair when CM met with him. He was pleasant and cooperative and agreeable to conversation. Don currently does not receive any services but asked CM about Meals on Wheels and other community supports. CM explained about services offered through [facility] [employer] on Aging and Don asked if CM would send a referral. ADVANCE DIRECTIVES:: none on file Has patient been provided with info about the portal/API?: Yes CODE STATUS:: Full Code INSURANCE COVERAGE / FINANCIAL ISSUES:: Medicare. [employer] CURRENT HOME/COMMUNITY SERVICES/EQUIPMENT:: has a cane and a walker PRIMARY CARE PHYSICIAN:: Analia Munroe POTENTIAL DISCHARGE NEEDS:: follow up with PCP and plan of care PATIENT/FAMILY EDUCATION NEEDS:: Review of discharge instructions, limitations, activity, follow up plan, Ask Me Three TRANSPORTATION:: via private vehicle PLAN:: Don will likely be discharged home when medically cleared by the provider. He may benefit from new home health services for nursing and PT. CM sent a referral to [facility] on Aging at Don's request for Meals on Wheels, [facility] and a Life Alert. He will follow up with his PCP and plan of care and transport with a friend. CM will follow and assess for discharge concerns.
[2022-01-28] MEDS: Digoxin 0.125 MG TAB 0.375 MG PO (09:59)
[2022-01-28] MEDS: Metoprolol CR 50 MG TABCR PO (09:59)
[2022-01-28] MEDS: POTASSIUM CHLORIDE 20 MEQ/100 ML BAG 50 MEQ IVPB ×2 (11:52→14:12)
[2022-01-28] MEDS: MAGNESIUM SULFATE 2 GM/50 ML BAG IVPB (11:53)
--- NOTE | 2022-01-28 17:57 | W.PM.PROGNOT ---
Date of Service Date of service: 01/28/22 Time of Service: 17:57 Assessment and Plan Assessment and plan (1) Acute UTI: Status: Acute Assessment and plan: Seen 01/21 for UTI. Returns with more symptoms and very weak. IVF, continue prematurely stopped abx, recheck urine in am. BC pending Cx E Coli - continue Ceftriaxone 1 gm daily (2) Generalized weakness: Status: Acute Assessment and plan: Same as above PT; strengthening - interested in OP PT (3) Hypokalemia: Status: Acute Assessment and plan: 3.2 this am - is on oral replacement, did add IV this morning. Recheck tomorrow. (4) Peripheral edema: Status: Chronic Assessment and plan: BLE 2+ pitting edema from feet to knees. Dwight wraps - TEDS too tight (5) Obstructive sleep apnea (adult) (pediatric): Status: Chronic Assessment and plan: Stable (6) Chronic anticoagulation: Status: Chronic Assessment and plan: Continue Apixiban TEDS to small - changed to dwight wraps (7) DVT prophylaxis: Status: Acute Assessment and plan: On Apixiban (8) Discharge planning issues: Status: Acute Assessment and plan: Home on Sat if all is well. He is stronger, if electrolytes are reasonable. OP PT Discussed with Dr Quevedo Subjective Subjective Patient reports: no new complaints, feels better, tolerating a regular diet, voiding w/o difficulty and afebrile; denies diarrhea, nausea, vomiting or shortness of breath Interval history since last seen: States he is feeling stronger today, would like to try OP PT Exam Const General: cooperative, comfortable and no acute distress Nutritional Appearance: obese Orientation: alert, awake and oriented x3 HENMT Mouth: moist mucous membranes Resp Effort & Inspection: normal respiratory effort, able to speak in complete sentences and no respiratory distress Cardio Rate: tachycardic Rhythm: abnormal rhythm irregularly irregular Pulses: normal peripheral pulses GI Inspection: obesity Palpation: not soft, not firm, no guarding and nontender Auscultation: normal bowel sounds Back/Spine/Pelvis Back: no CVA tenderness Thoracic/Lumbar Spine: thoracic and lumbar spine normal to inspection Skin General skin exam: no rashes or lesions noted Neuro General: patient alert, patient awake, patient oriented x3, moves all extremities and no focal motor deficits Cognition: normal cognition Speech: speech normal Motor: strength abnormal (Generalized weakness) Sensory Exam: no sensory deficits noted Objective Last Vital Signs Temp 36.7 C 01/28/22 15:39 Pulse 98 H 01/28/22 15:39 Resp 18 01/28/22 15:39 BP 109/72 01/28/22 15:39 Pulse Ox 92 01/28/22 15:39 Laboratory Results - last 24 hr 01/28/22 01/28/22 07:00 07:00 WBC 11.75 H RBC 4.23 L Hgb 12.7 L Hct 39.3 L MCV 93 MCH 30.0 MCHC 32.3 RDW 13.4 Plt Count 325 MPV 11.5 H Immature Gran % 1.9 Neutrophils % 77.0 Lymphocytes % 11.4 Monocytes % 8.4 Eosinophils % 0.7 Basophils % 0.6 Nucleated RBC % 0.0 Absolute Neutrophils 9.05 H Absolute Lymphocytes 1.34 Absolute Monocytes 0.99 H Absolute Eosinophils 0.08 Absolute Basophils 0.07 Sodium 137 Potassium 3.2 L Chloride 100 Carbon Dioxide 29.3 Anion Gap 7.7 BUN 15 Creatinine 0.9 Est GFR (CKD-EPI 2020) 94.78 Glucose 129 H Calcium 9.0 Magnesium 1.6 L
[2022-01-28] MEDS: amLODIPine 5 MG TAB PO (21:18)
[2022-01-28] MEDS: cefTRIAXone 1 GM/50 ML BAG IVPB (21:19)
[2022-01-28] MEDS: traMADol 50 MG TAB 100 MG PO (22:34)
[2022-01-29] VITALS (11 sets, daily range): BP systolic 106–127; BP diastolic 70–80; PULSE 78–125; RESP 15–22; TEMP 36.1–37.2; O2SAT 92–96
--- NOTE | 2022-01-29 | DI.RAD_ITS ---
Exam(s) XR PORTABLE CHEST AP EXAM: XR PORTABLE CHEST AP CLINICAL HISTORY: worsening leucocytosis. TECHNIQUE: 2D digital imaging was performed. COMPARISON: CR XR PORTABLE CHEST AP from 01/27/2022 FINDINGS: LUNGS: Clear. No pleural abnormality seen. HEART: Normal. MEDIASTINUM: Normal. OTHER FINDINGS: None. IMPRESSION: No acute pulmonary findings. DATA REPOSITORY: RADIATION DOSE DELIVERED: Total DLP
[2022-01-29] MEDS: Acetaminophen 325 MG TAB PO ×3 (03:53→22:48)
[2022-01-29 07:15] LABS: Abs Immature Grans 0.31 10^3/uL (0.0-0.06); Absolute Eosinophil Count 0.09 10^3/uL (0.0-0.7); Absolute Monocyte Count 1.08 10^3/uL (0.1-0.8); Absolute Neutrophil Count 9.44 10^3/uL (1.2-6.7); Basophils % 0.8; Eosinophils % 0.7; HCT 39.9 % (40.0-50.0); HGB 13.2 g/dL (13.5-17.5); Immature Grans % 2.4; Lymphocytes % 14.6; MCH 30.4 pg (27.0-33.0); MCHC 33.1 % (32.0-36.0); MCV 92 fL (80-95); MPV 11.4 fL (8.0-11.0); Monocytes % 8.4; Neutrophils % 73.1; Platelet Count 361 10^3/uL (130-400); RBC 4.34 10^6/uL (4.36-5.78); RDW 13.3 % (11.8-14.1); RDW-SD 45.4 fL; WBC 12.91 10^3/uL (4.4-10.8)
[2022-01-29 07:19] LABS: Anion Gap 7.5 mmol/L (3-11); BUN 13 mg/dL (7-18); CO2 27.5 mmol/L (21.0-32.0); CREATININE 0.7 mg/dL (0.70-1.30); Chloride 96 mmol/L (98-107); Estimated GFR 102.25 (mL/min/1.73m2); Glucose 126 mg/dL (74-106); Magnesium 1.7 mg/dL (1.8-2.4); Potassium 3.6 mmol/L (3.5-5.1); Sodium 131 mmol/L (136-145)
[2022-01-29 07:27] LABS: Absolute Lymphocyte Count 1.88 10^3/uL (1.2-3.4)
[2022-01-29] MEDS: Apixaban 5 MG TAB PO ×2 (07:42→20:54)
[2022-01-29] MEDS: Furosemide 40 MG TAB PO ×2 (07:42→16:12)
[2022-01-29] MEDS: Metoprolol CR 50 MG TABCR PO (07:43)
[2022-01-29] MEDS: Atorvastatin 40 MG TAB PO (07:43)
[2022-01-29] MEDS: Digoxin 0.125 MG TAB 0.375 MG PO (07:43)
[2022-01-29] MEDS: Normal Saline Flush 10 ML SYR IVP ×2 (07:43→22:49)
[2022-01-29] MEDS: Potassium Chloride 20 MEQ TABCR PO ×2 (07:43→20:53)
[2022-01-29] MEDS: Multivitamin TAB 1 TAB PO (07:43)
[2022-01-29] MEDS: MAGNESIUM SULFATE 2 GM/50 ML BAG IVPB (12:20)
[2022-01-29 18:20] LABS: C Diff PCR Negative (Negative)
[2022-01-29 19:14] LABS: Bilirubin Negative (Negative); Blood Small (Negative); Clarity Clear (Clear); Glucose Negative (Negative); Ketones Negative (Negative); Leukocyte Esterase Negative (Negative); Nitrite Negative (Negative); Urobilinogen 0.2 EU/dL (Up TO 0.2); pH 5.5 (5-8)
[2022-01-29 19:23] LABS: Bacteria Rare HPF (Negative); C & S Indicated? No; Casts Negative LPF (Negative); Crystals Negative HPF (Negative); Epithelial Cells Rare HPF (Negative); Mucus Negative (Negative); WBC 0-2 HPF (0-5)
--- NOTE | 2022-01-29 19:28 | W.PM.PROGNOT ---
Date of Service Date of service: 01/29/22 Time of Service: 19:28 Assessment and Plan Assessment and plan (1) Acute UTI: Status: Acute Assessment and plan: E. coli UTI diagnosed on 01/21, pansensitive. UA today was negative. Stones and obstructive uropathy ruled out. On ceftriaxone. Consider d/c abx if CXR negative. (2) Leucocytosis: Status: Acute Assessment and plan: UA cleared. Checking CXR - if positive, would expand antibiotic coverage. Recheck CBC w/ diff in am. (3) Generalized weakness: Status: Acute Assessment and plan: Suspect due to UTI. Continue working with PT. (4) Lower back pain: Status: Acute Assessment and plan: Continue prn tylenol. Add heat and lidocaine patches. C/s PT. (5) Hypokalemia: Status: Resolved Assessment and plan: Recheck in am (6) Peripheral edema: Status: Chronic Assessment and plan: Chronic edema. Continue Dwight wraps. (7) Obstructive sleep apnea (adult) (pediatric): Status: Chronic Assessment and plan: Continue CPAP. (8) Chronic anticoagulation: Status: Chronic Assessment and plan: Continue Apixiban (for Afib). (9) DVT prophylaxis: Status: Acute Assessment and plan: On Apixiban (10) Discharge planning issues: Status: Acute Assessment and plan: Anticipate discharge home tomorrow if WBC better/no need for continued IV abx identified. Subjective Subjective Interval history since last seen: Mr Flores states that he is not feeling too bad. He does endorse dry cough that he noticed last night. He also reports lower back pain radiating circumferentially around his back to the abdomen and down his left leg. He refused anything but tylenol for the pain, but agrees to try heat and lidocaine patches. No dizziness, palpitations, CP, nausea. States that he was offered Afib ablation but was not interested and cardioversion was not effective. Exam Narrative Exam Narrative: General: Pleasant obese male who is sitting up in a chair, A&Ox3, NAD, on RA HEENT: EOMI, MMM Heart: irregularly irregular rhythm, tachycardic Lungs: CTAB Abdomen: soft, nontender, nondistended Extremities: 2+ BLE edema with chronic venous stasis dermatitis changes Objective Last Vital Signs Temp 37.2 C 01/29/22 15:04 Pulse 102 H 01/29/22 15:04 Resp 18 01/29/22 15:04 BP 108/77 01/29/22 15:04 Pulse Ox 92 01/29/22 15:04 Laboratory Results - last 24 hr 01/29/22 01/29/22 01/29/22 06:50 06:50 16:06 WBC 12.91 H RBC 4.34 L Hgb 13.2 L Hct 39.9 L MCV 92 MCH 30.4 MCHC 33.1 RDW 13.3 Plt Count 361 MPV 11.4 H Immature Gran % 2.4 Neutrophils % 73.1 Lymphocytes % 14.6 Monocytes % 8.4 Eosinophils % 0.7 Basophils % 0.8 Nucleated RBC % 0.0 Absolute Neutrophils 9.44 H Absolute Lymphocytes 1.88 Absolute Monocytes 1.08 H Absolute Eosinophils 0.09 Absolute Basophils 0.10 Sodium 131 L Potassium 3.6 Chloride 96 L Carbon Dioxide 27.5 Anion Gap 7.5 BUN 13 Creatinine 0.7 Est GFR (CKD-EPI 2020) 102.25 Glucose 126 H Calcium 9.0 Magnesium 1.7 L Urine Color Urine Clarity Urine pH Ur Specific [place] Urine Protein Urine Ketones Urine Blood Urine Nitrite Urine Bilirubin Urine Urobilinogen Ur Leukocyte Esterase Urine RBC Urine WBC Ur Epithelial Cells Urine Crystals Urine Bacteria Urine Casts Urine Mucus Ur Culture Indicated? Urine Glucose Stl C.difficile Tox PCR Negative 01/29/22 18:40 WBC RBC Hgb Hct MCV MCH MCHC RDW Plt Count MPV Immature Gran % Neutrophils % Lymphocytes % Monocytes % Eosinophils % Basophils % Nucleated RBC % Absolute Neutrophils Absolute Lymphocytes Absolute Monocytes Absolute Eosinophils Absolute Basophils Sodium Potassium Chloride Carbon Dioxide Anion Gap BUN Creatinine Est GFR (CKD-EPI 2020) Glucose Calcium Magnesium Urine Color Yellow Urine Clarity Clear Urine pH 5.5 Ur Specific [place] 1.010 Urine Protein Negative Urine Ketones Negative Urine Blood Small H Urine Nitrite Negative Urine Bilirubin Negative Urine Urobilinogen 0.2 Ur Leukocyte Esterase Negative Urine RBC 3-5 H Urine WBC 0-2 Ur Epithelial Cells Rare Urine Crystals Negative Urine Bacteria Rare Urine Casts Negative Urine Mucus Negative Ur Culture Indicated? No Urine Glucose Negative Stl C.difficile Tox PCR
--- NOTE | 2022-01-29 20:22 | DI.VRAD_ITS ---
PROCEDURE INFORMATION: Exam: XR Chest Exam date and time: 01/29/2022 7:56 PM Age: 66 years old Clinical indication: Condition or disease; Patient HX: Worsening leukocytosis TECHNIQUE: Imaging protocol: Radiologic exam of the chest. Views: 1 view. COMPARISON: CR XR PORTABLE CHEST AP 01/27/2022 12:37 PM FINDINGS: Lungs: Mild chronic interstitial prominence. No consolidation. Pleural spaces: No pleural effusion. No pneumothorax. Heart/Mediastinum: Grossly stable. Bones/joints: Unremarkable. IMPRESSION: No acute findings. Dictated and Authenticated by: Adama Luciano MD. Ordering:MISAEL Sabillon MD
[2022-01-29] MEDS: amLODIPine 5 MG TAB PO (20:54)
[2022-01-29] MEDS: Lidocaine 5% Patch 1 PATCH TP (20:55)
[2022-01-29] MEDS: cefTRIAXone 1 GM/50 ML BAG IVPB (22:49)
[2022-01-30] VITALS (7 sets, daily range): BP systolic 103–123; BP diastolic 65–77; PULSE 82–139; RESP 16–20; TEMP 36.3–36.8; O2SAT 94–96
[2022-01-30] MEDS: Acetaminophen 325 MG TAB PO ×3 (03:11→14:52)
[2022-01-30 06:54] LABS: Abs Immature Grans 0.36 10^3/uL (0.0-0.06); Absolute Lymphocyte Count 1.92 10^3/uL (1.2-3.4); Absolute Monocyte Count 1.02 10^3/uL (0.1-0.8); Absolute Neutrophil Count 9.46 10^3/uL (1.2-6.7); Basophils % 0.8; Eosinophils % 0.8; HCT 40.4 % (40.0-50.0); HGB 13.8 g/dL (13.5-17.5); Immature Grans % 2.8; Lymphocytes % 14.8; MCH 30.5 pg (27.0-33.0); MCHC 34.2 % (32.0-36.0); MCV 89 fL (80-95); MPV 11.3 fL (8.0-11.0); Monocytes % 7.9; Neutrophils % 72.9; Platelet Count 429 10^3/uL (130-400); RBC 4.52 10^6/uL (4.36-5.78); RDW 13.2 % (11.8-14.1); RDW-SD 43.3 fL; WBC 12.97 10^3/uL (4.4-10.8)
[2022-01-30 07:11] LABS: Anion Gap 8.2 mmol/L (3-11); BUN 14 mg/dL (7-18); CO2 26.8 mmol/L (21.0-32.0); CREATININE 0.8 mg/dL (0.70-1.30); Calcium 9.5 mg/dL (8.5-10.1); Chloride 98 mmol/L (98-107); Estimated GFR 98.21 (mL/min/1.73m2); Glucose 132 mg/dL (74-106); Magnesium 2.1 mg/dL (1.8-2.4); Sodium 133 mmol/L (136-145)
[2022-01-30] MEDS: Atorvastatin 40 MG TAB PO (07:45)
[2022-01-30] MEDS: Apixaban 5 MG TAB PO (07:45)
[2022-01-30] MEDS: Potassium Chloride 20 MEQ TABCR PO (07:45)
[2022-01-30] MEDS: Furosemide 40 MG TAB PO ×2 (07:45→15:53)
[2022-01-30] MEDS: Normal Saline Flush 10 ML SYR IVP (07:45)
[2022-01-30] MEDS: Multivitamin TAB 1 TAB PO (07:45)
[2022-01-30] MEDS: Digoxin 0.125 MG TAB 0.375 MG PO (07:46)
[2022-01-30] MEDS: Metoprolol CR 50 MG TABCR PO (07:49)
[2022-01-30] MEDS: Patch Removal 1 EACH TP (07:50)
--- NOTE | 2022-01-30 08:00 | DI.RAD_ITS ---
Exam(s) XR LUMBAR SPINE COMPLETE EXAM: XR LUMBAR SPINE COMPLETE CLINICAL HISTORY: lower back pain TECHNIQUE: COMPARISON: No exams were available for comparison FINDINGS: Six views were obtained. The intervertebral disc spaces are fairly well maintained. There are moder ate hypertrophic degenerative changes of the facet joints throughout the lumbar region. Mild to mode rate hypertrophic endplate changes also noted, most marked at the T11-T12 and T12-L1 levels. There i s no evidence of spondylolysis or spondylolisthesis. IMPRESSION: Moderate DJD of the lumbar spine as described above RADIATION DOSE DELIVERED: Total DLP
--- NOTE | 2022-01-30 11:07 | IN_ITS ---
PT Notes Visit Reasons: Weak;UTI,AFIB RVR Physical Therapy Inpatient Initial Evaluation Date: 01/30/22 Referring Doctor: Ramandeep Quevedo MD PT Orders: PT CONSULT: Limited Ability Precautions: Fall. Standard. Patient Profile/Admitting Diagnosis: Blaise is 66 yo male that presented to the ER on 01/27/22 for generalized weakness. He was unable to get out of chair. Reports 2-3 weeks ago he started getting back pain when standing up from edge of bed. Was able to go about his day, but had spasms that night in bed. Tends to be a side sleeper. Getting numbness and tingling in anterior thighs at times. Finding walking difficult when back hurts. Has tried pain medication, tylenol, bengay, and heat. Feels tylenol helps the most. Had x-ray this morning for back, which aggravated his back. PMHX: See EMR Social History/Home Situation: Lives alone with dog, has 3 BRADEN. Independent at baseline. Was using cane in last couple weeks and FWW day prior to admission. Equipment Owned/DME: Cane, FWW Subjective: Cleared by nursing to see patient and patient is agreeable to PT. Patient just returned from x-ray off unit and is sitting in transport chair at time of consult and connected to telemetry. Objective: General Observation: Swelling in left leg greater than right Mental Status: A&O x3 Pain: 6/10 back ROM: Right Upper Extremity: Shoulder Flexion WFL. Shoulder abduction WFL. Elbow flexion WFL. Wrist flexion WFL. Opening and closing of hand WFL. Left Upper Extremity: Shoulder Flexion WFL. Shoulder abduction WFL. Elbow flexion WFL. Wrist flexion WFL. Opening and closing of hand WFL. Right Lower Extremity: Hip flexion WFL. Hip abduction WFL. Knee flexion WFL. Ankle dorsiflexion WFL. Ankle plantarflexion WFL. Left Lower Extremity: Hip flexion WFL. Hip abduction WFL. Knee flexion WFL. Ankle dorsiflexion WFL. Ankle plantarflexion WFL. Strength: Right Upper Extremity: Shoulder flexors 5/5. Shoulder abductors 5/5. Elbow flexors 5/5. Elbow extensors 5/5. Junior Loan Processor strong. Left Upper Extremity: Shoulder flexors 5/5. Shoulder abductors 5/5. Elbow flexors 5/5. Elbow extensors 5/5. Junior Loan Processor strong. Right Lower Extremity: Hip flexors 5/5. Knee flexors 5/5. Knee extensors 5/5. Ankle dorsiflexors 5/5. Ankle plantarflexors 5/5. Left Lower Extremity: Hip flexors 5/5. Knee flexors 5/5. Knee extensors 5/5. Ankle dorsiflexors 5/5. Ankle plantarflexors 5/5. Sensation: Intact as to pain and pressure on bilateral lower extremities. Bed Mobility/Transfers: Supine to sit: Not assessed Sit to supine: Not assessed but reports need help with legs Sit to stand: Independent Stand to sit: Independent Bed to chair: Supervision with FWW Chair to bed: Supervision with FWW Gait: Ambulated 10ft in room with FWW Stairs: Not assessed Balance: Static Sitting: Normal Dynamic Sitting: Normal Static Standing: Normal Dynamic Standing: Good Special Tests: Mobility Limitations Standardized Measure [facility] AM-PAC 6 clicks Basic Mobility Inpatient Short Form: Raw Score: 16 CMS Score: 54% Informed Consent/Education: Patient instructed in purpose of PT consult and plan of care. Assessment: Patient presents with clinical signs and symptoms consistent with current/admitting diagnoses that have resulted to mobility limitations, gait instability, generalized weakness, and impairment of motor control as demonstrated by the following impairment level findings: 1. Impaired activity tolerance Impairments are contributing to the following functional limitations: 1. Inability to safely ambulate without assistive device and physical assistance 2. Increase completion time for mobility ADL performance 3. Increased fall risk Patient is assessed as a Low complexity based on the following: History: 66 year old male with impairment level findings, functional limitations, and past medical history as indicated above Examination: Demonstrable impairment in strength, balance, and mobility level with underlying impairments and functional limitations as documented above Presentation: Stable Decision Making: Low complexity Goals: Goals x1 week 1. Supine-Sit: independent 2. Sit-Supine: independent 3. Sit-Stand: independent 4. Stand-Sit: independent 5. Bed-Chair: independent 6. Chair-Bed: independent 7. Independent gait on level surface with use of least restrictive device for at least 300 feet without report of pain nor dyspnea 8. Good static and dynamic standing balance/tolerance 9. Independent with home exercise program 10. Independent stair negotiation while holding onto bilateral rails for at least 10 steps without report of pain nor dyspnea Plan of Care/Treatment Plan: 1x/day, 5 days/week x1 week. Plan of care has been reviewed with the WINDOWS APPLICATION DEVELOPER providing the service under Physical Therapy direction. Initiate Physical Therapy intervention for strengthening, bed mobility, transfers, gait, stairs, balance training, and use of assistive device. Discharge Plan DISCHARGE RECOMMENDATIONS: Home with outpatient PT TREATMENT CODE/TIME: 10:43-11:05 (22 minutes), [id number] Thank you for the opportunity to participate in the care of this patient. Ailyn Nguyen, PT, DPT, OCS [facility] [place], [place]
--- NOTE | 2022-01-30 12:17 | DI.VRAD_ITS ---
PROCEDURE INFORMATION: Exam: XR Lumbosacral Spine Exam date and time: 01/30/2022 10:30 AM Age: 66 years old Clinical indication: Other: Low back pain TECHNIQUE: Imaging protocol: Radiologic exam of the lumbosacral spine. Views: 4 or 5 views. COMPARISON: CT ABDOMEN PELVIS W 01/21/2022 3:34 PM FINDINGS: Bones/joints: Degenerative changes and mild levoscoliosis noted No acute fracture. Foraminal stenosis most pronounced at L4-L5 and L5-S1 Soft tissues: Unremarkable. Nonspecific gaseous distention in the bowel IMPRESSION: No acute findings. Degenerative changes as noted Dictated and Authenticated by: Aadma Luciano MD. Ordering:MISAEL Sabillon MD
--- NOTE | 2022-01-30 14:12 | PGE_ITS ---
Date of Service Date of service: 01/30/22 Time of Service: 14:13 Assessment and Plan Assessment and plan (1) Acute UTI: Status: Acute Assessment and plan: E. coli UTI diagnosed on 01/21, pansensitive. UA was negative. Stones and obstructive uropathy ruled out. discontinued ceftriaxone. CXR negative. (2) Leucocytosis: Status: Acute Assessment and plan: UA cleared. WBC 12.97 . (3) Generalized weakness: Status: Acute Assessment and plan: Suspect due to UTI. Continue working with PT. (4) Lower back pain: Status: Acute Assessment and plan: Continue prn tylenol. Add heat and lidocaine patches. C/s PT. (5) Hypokalemia: Status: Resolved Assessment and plan: Recheck in am (6) Peripheral edema: Status: Chronic Assessment and plan: Chronic edema. Continue Dwight wraps. (7) Obstructive sleep apnea (adult) (pediatric): Status: Chronic Assessment and plan: Continue CPAP. (8) Chronic anticoagulation: Status: Chronic Assessment and plan: Continue Apixiban (for Afib). (9) DVT prophylaxis: Status: Acute Assessment and plan: On Apixiban (10) Discharge planning issues: Status: Acute Assessment and plan: Anticipate discharge home tomorrow if WBC better/no need for continued IV abx identified. Exam Narrative Exam Narrative: General: Pleasant obese male who is sitting up in a chair, A&Ox3, NAD, on RA HEENT: EOMI, MMM Heart: irregularly irregular rhythm, tachycardic Lungs: CTAB Abdomen: soft, nontender, nondistended Extremities: 2+ BLE edema with chronic venous stasis dermatitis changes Objective Last Vital Signs Temp 36.3 C L 01/30/22 12:03 Pulse 84 01/30/22 12:03 Resp 18 01/30/22 12:03 BP 103/68 01/30/22 12:03 Pulse Ox 96 01/30/22 12:03 Laboratory Results - last 24 hr 01/29/22 01/29/22 01/30/22 16:06 18:40 06:25 WBC RBC Hgb Hct MCV MCH MCHC RDW Plt Count MPV Immature Gran % Neutrophils % Lymphocytes % Monocytes % Eosinophils % Basophils % Nucleated RBC % Absolute Neutrophils Absolute Lymphocytes Absolute Monocytes Absolute Eosinophils Absolute Basophils Sodium 133 L Potassium 4.0 Chloride 98 Carbon Dioxide 26.8 Anion Gap 8.2 BUN 14 Creatinine 0.8 Est GFR (CKD-EPI 2020) 98.21 Glucose 132 H Calcium 9.5 Magnesium 2.1 Urine Color Yellow Urine Clarity Clear Urine pH 5.5 Ur Specific [place] 1.010 Urine Protein Negative Urine Ketones Negative Urine Blood Small H Urine Nitrite Negative Urine Bilirubin Negative Urine Urobilinogen 0.2 Ur Leukocyte Esterase Negative Urine RBC 3-5 H Urine WBC 0-2 Ur Epithelial Cells Rare Urine Crystals Negative Urine Bacteria Rare Urine Casts Negative Urine Mucus Negative Ur Culture Indicated? No Urine Glucose Negative Stl C.difficile Tox PCR Negative 01/30/22 06:25 WBC 12.97 H RBC 4.52 Hgb 13.8 Hct 40.4 MCV 89 MCH 30.5 MCHC 34.2 RDW 13.2 Plt Count 429 H MPV 11.3 H Immature Gran % 2.8 Neutrophils % 72.9 Lymphocytes % 14.8 Monocytes % 7.9 Eosinophils % 0.8 Basophils % 0.8 Nucleated RBC % 0.0 Absolute Neutrophils 9.46 H Absolute Lymphocytes 1.92 Absolute Monocytes 1.02 H Absolute Eosinophils 0.10 Absolute Basophils 0.10 Sodium Potassium Chloride Carbon Dioxide Anion Gap BUN Creatinine Est GFR (CKD-EPI 2020) Glucose Calcium Magnesium Urine Color Urine Clarity Urine pH Ur Specific [place] Urine Protein Urine Ketones Urine Blood Urine Nitrite Urine Bilirubin Urine Urobilinogen Ur Leukocyte Esterase Urine RBC Urine WBC Ur Epithelial Cells Urine Crystals Urine Bacteria Urine Casts Urine Mucus Ur Culture Indicated? Urine Glucose Stl C.difficile Tox PCR
--- NOTE | 2022-01-30 14:35 | W.PM.DS.N ---
Date of service: 01/30/22 Time of Service: 14:35 DS: Diagnosis Discharge Diagnosis (1) Acute UTI: Status: Acute (2) Leucocytosis: Status: Acute (3) Generalized weakness: Status: Acute (4) Lower back pain: Status: Acute (5) Hypokalemia: Status: Resolved (6) Peripheral edema: Status: Chronic (7) Obstructive sleep apnea (adult) (pediatric): Status: Chronic (8) Chronic anticoagulation: Status: Chronic (9) DVT prophylaxis: Status: Acute (10) Discharge planning issues: Status: Acute Discharge Plan Disposition Patient Disposition: HOME Condition: Stable Discharge Details Reason For Visit: Weak;UTI,AFIB RVR Admit Date/Time: 01/27/22 15:39 Admit Provider: Ramandeep Quevedo Attending Provider: Ramandeep Quevedo Primary Care Provider: Analia Munroe Hospital Course Hospital Course: This is a 66 year old? male that presented to the [facility] emergency department via EMS with the chief complaint of weakness.?He stated he has had generalized weakness for five days. The patient was recently diagnosed with a UTI and has been taking his antibiotic medication until yesterday evening when he sat down in the chair and could not get up from the chair.? He rested there all night but again had significant weakness this morning and could not get out of the chair, he called EMS.? Patient lives by himself and has significant history of atrial fibrillation with cardioversion, obesity, anticoagulated and CHF.? Physical exam shows nonpitting edema to bilateral lower extremities, diminished lung sounds in the bases but otherwise clear, irregular heart rhythm with tachycardia, patient alert and oriented with no focal neurological deficits but generalized weakness is noted.? Please see physician interpretation for full interpretation of EKG but patient has been atrial fibrillation with rapid ventricular response. Review of labs showed an elevated white blood cell count with shift, slight anemia with hemoglobin of 12.2, potassium of 3 so we will replete orally, mag of 1.5 so we will also give oral repletion, elevation of total bilirubin AST and ALT with negative initial troponin and BNP slightly elevated at 963.? Urine shows ketones and blood but otherwise no longer looks infected.? Patient is negative for COVID.? Will give patient his normal daily medications and will give 1 dose of Rocephin due to patient not completing his antibiotics for UTI and still having white count.? Patient does report that his typical heart rate is between the 101 110 with his A. fib due to having significant hypotension with increase of his medications.? We will make this a goal for his A. fib after he receives his oral medications Patient's chest x-ray was reviewed and showed no acute worrisome findings.? On being reassessed he had a heart rate between 100-110 bpm on average. He was placed on observation on the medical floor stable.?His main complaint while hospitalized is right lower back spasms that come and go and are releaved by tylenol. No gastrointestinal or urinary symptoms. He states Cyclobenzaprine doesn't help him, he was told to stop taking it. He reports tylenol works well for him most of the time. Will give him a few Tramadol to take for breakthrough pain. I recommended he attend out-patient PT for his chronic back issues; he does agree that's a good idea and will attend. He reports he gets around fine, to include uneven ground, with a cane only. Advised him not to drive while taking Tramadol. He agreed he would not. Recommend follow up with PCP and cardiology regarding his AFib, mostly RVR. HR 80'ss-150's. He currently is taking a calcium channel areli, a beta bllocker and digoxin and his continues to have AF RVR. Discussed with Dr Cox [place] Meds and New Rx's Prescriptions: New tramadol 50 mg Tablet 100 mg PO Q6H PRN PRNQty: 20 0RF lidocaine 5 % Adhesive Patch,Medicated 1 patch topical Q24H Qty: 15 0RF Continued multivitamin 1 EACH tablet 1 ea PO DAILY Biotene Dry Mouth Oral Rinse Mouthwash Dental BID PRNQty: 0 amlodipine 5 mg tablet 5 mg PO DAILY Qty: 90 3RF Eliquis 5 mg tablet 5 mg PO q 12 hours Qty: 180 3RF atorvastatin 40 mg tablet 40 mg PO DAILY Qty: 90 3RF diltiazem HCl 360 mg capsule,extended release 24hr 360 mg PO DAILY Qty: 90 3RF furosemide 40 mg tablet 40 mg PO BID Qty: 180 3RF metoprolol succinate 50 mg tablet extended release 24 hr 50 mg PO DAILY Qty: 90 3RF potassium chloride 20 mEq tablet extended release 20 meq PO BID Qty: 180 3RF digoxin 250 mcg (0.25 mg) tablet 250 mcg PO DAILY MDD 375 mcg Qty: 90 0RF digoxin 125 mcg (0.125 mg) tablet 125 mcg PO DAILY MDD 375 mcg Qty: 90 0RF acetaminophen 325 mg Tablet 650 mg PO DAILY PRN Discontinued cephalexin 500 mg tablet 500 mg PO BID 7 Days Qty: 14 0RF Rx Instructions: Take one tablet twice daily x 7 days cyclobenzaprine 10 mg tablet 10 mg PO TID PRN (Reason: muscle spasm) Qty: 10 0RF Discharge Instructions Instructions: Tramadol (By mouth), Urinary Tract Infection in Men (DC), Muscle Spasm (ED), Back Pain (GEN) Additional Instructions: Stop taking cyclobenzaprine; your reported it did not help with your pain. Take tylenol not to exceed 3000 mg total per day, for pain, discomfort. Take Tramadol for pain not managed by tylenol. Stand Alone Forms: Nursing Discharge Form Referrals: Analia Munroe TIN WHIZ MACHINE OPERATOR [Primary Care Provider] - (PLEASE CALL OFFICE TOMORROW FOR FOLLOW UP APPOINTMENT WITHIN 1-2 WEEKS.) [facility] [OTHER] - (Follow up in 1-2 weeks for lower back spasm. ) Activity:: Activity as Tolerated Equipment/Supplies:: Walker Diet:: Low Sodium Discharge Orders Discharge Orders: Discharge Order (Routine); Ordered 01/30/22 Ordered By: Gauri Burgess DS: Summary Time Spent with Patient providing and/or coordinating discharge services: Less than 30 minutes Status at Discharge Functional status at discharge: uses cane/walker Overall status at discharge: patient is back to baseline Mental Status: mental status grossly normal Speech and Movement: speech and movement normal Mood: congruent mood Affect: normal affect Exam Narrative Exam Narrative: General: Pleasant obese male who is sitting up in a chair, A&Ox3, NAD, on RA HEENT: EOMI, MMM Heart: irregularly irregular rhythm, tachycardic Lungs: CTAB Abdomen: soft, nontender, nondistended Extremities: 2+ BLE edema with chronic venous stasis dermatitis changes Psych Mental Status: mental status grossly normal Speech and Movement: speech and movement normal Mood: congruent mood Affect: normal affect DS: Data Vitals/I&O Vitals and I&O: Vital Signs Temperature 36.3 C L 01/30/22 12:03 Temperature Source Tympanic 01/30/22 12:03 Pulse 84 01/30/22 12:03 Pulse Rhythm Irregular 01/30/22 09:18 Pulse 97 H 01/27/22 15:50 Respiratory Rate 18 01/30/22 12:03 Respiratory Effort Non-Labored 01/30/22 09:18 Respiratory Depth Normal 01/30/22 09:18 Respiratory Pattern Normal 01/30/22 03:00 Blood Pressure 103/68 01/30/22 12:03 Blood Pressure Mean 65 01/27/22 14:45 Pulse Oximetry 96 01/30/22 12:03 Oxygen Delivery Method Room Air 01/30/22 12:03 Oxygen Flow Rate 0 01/30/22 12:03 Fraction of Inspired Oxygen (FIO2) 21 01/29/22 14:47 Pain Level 5 01/30/22 12:03 Comment 01/30/22 08:30 Intake & Output 01/29/22 01/30/22 01/30/22 23:59 11:59 23:59 Intake Total 500 / 740 840 / 840 Output Total 1250 / 3250 850 / 1650 800 / 1650 Balance -750 / -2510 -850 / -810 40 / -810 Weight 141.6 kg Intake: IV 50 / 50 Oral 450 / 690 840 / 840 Output: Urine 1250 / 3250 850 / 1650 800 / 1650 Other: Urine Color Yellow Yellow Yellow [place] Urine Appearance Clear Clear Clear Urine Odor Normal Comment Unmeasurable amount voided, patient grossly incontinent, urine dripping on floor and bed saturated. Stool Size Moderate Small Moderate Stool Characteristics Liquid Brown Soft Brown Formed Brown Voiding Methods Toilet Toilet Toilet Data Completed and Pending Labs on day of discharge: Labs from last 24 hours 01/30/22 01/30/22 01/29/22 06:25 06:25 18:40 WBC 12.97 H RBC 4.52 Hgb 13.8 Hct 40.4 MCV 89 MCH 30.5 MCHC 34.2 RDW 13.2 Plt Count 429 H MPV 11.3 H Immature Gran % 2.8 Neutrophils % 72.9 Lymphocytes % 14.8 Monocytes % 7.9 Eosinophils % 0.8 Basophils % 0.8 Nucleated RBC % 0.0 Absolute Neutrophils 9.46 H Absolute Lymphocytes 1.92 Absolute Monocytes 1.02 H Absolute Eosinophils 0.10 Absolute Basophils 0.10 Sodium 133 L Potassium 4.0 Chloride 98 Carbon Dioxide 26.8 Anion Gap 8.2 BUN 14 Creatinine 0.8 Est GFR (CKD-EPI 2020) 98.21 Glucose 132 H Calcium 9.5 Magnesium 2.1 Urine Color Yellow Urine Clarity Clear Urine pH 5.5 Ur Specific [place] 1.010 Urine Protein Negative Urine Ketones Negative Urine Blood Small H Urine Nitrite Negative Urine Bilirubin Negative Urine Urobilinogen 0.2 Ur Leukocyte Esterase Negative Urine RBC 3-5 H Urine WBC 0-2 Ur Epithelial Cells Rare Urine Crystals Negative Urine Bacteria Rare Urine Casts Negative Urine Mucus Negative Ur Culture Indicated? No Urine Glucose Negative Stl C.difficile Tox PCR 01/29/22 16:06 WBC RBC Hgb Hct MCV MCH MCHC RDW Plt Count MPV Immature Gran % Neutrophils % Lymphocytes % Monocytes % Eosinophils % Basophils % Nucleated RBC % Absolute Neutrophils Absolute Lymphocytes Absolute Monocytes Absolute Eosinophils Absolute Basophils Sodium Potassium Chloride Carbon Dioxide Anion Gap BUN Creatinine Est GFR (CKD-EPI 2020) Glucose Calcium Magnesium Urine Color Urine Clarity Urine pH Ur Specific [place] Urine Protein Urine Ketones Urine Blood Urine Nitrite Urine Bilirubin Urine Urobilinogen Ur Leukocyte Esterase Urine RBC Urine WBC Ur Epithelial Cells Urine Crystals Urine Bacteria Urine Casts Urine Mucus Ur Culture Indicated? Urine Glucose Stl C.difficile Tox PCR Negative Preliminary micro results at discharge 01/27/22 21:00 Blood Culture - Preliminary Blood NO GROWTH 48 HOURS 01/27/22 20:52 Blood Culture - Preliminary Blood NO GROWTH 48 HOURS PFSH All Active Problems (Updated 01/29/22 @ 19:36 by Ramandeep Quevedo MD) Lower back pain (Acute) Leucocytosis (Acute) DVT prophylaxis (Acute) Discharge planning issues (Acute) Back pain (Acute) Leukocytosis (Acute) Acute UTI (Acute) Generalized weakness (Acute) Sessile colonic polyp (Acute) Tubulovillous adenoma of colon (Acute) Diverticula of colon (Acute) Severe disease that does extend to the right hepatic flexure. Adenomatous polyps (Acute) Weight loss counseling, encounter for (Acute 02/11/15) Peripheral edema (Chronic 12/26/17) Obstructive sleep apnea (adult) (pediatric) (Chronic 09/11/12) Knee pain (Acute 06/18/13) Essential hypertension (Acute 07/17/12) BMI 50.0-59.9, adult (Acute 09/11/12) Atrial fibrillation (Acute 05/31/16) Type 2 diabetes mellitus without complication (Acute ~09/01/20) Chronic anticoagulation (Chronic ~09/2015) Dyspnea (Acute) Medical History History of cardioversion Impaired fasting glucose (06/30/11) JOSE ARMANDO (obstructive sleep apnea) 06/22/21 Sleep Clinic visit and f/u in October 2021 Surgical History History of colonoscopy (~04/08/10) History of colonoscopy with polypectomy (~03/26/21) Family History Mother No problems noted. Father , OR at age 61. Myocardial infarction Sister No problems noted. Sister No problems noted. Son No problems noted. Son No problems noted. Daughter Personal history of malignant neoplasm age 9 of leukemia Social History Smoking/Tobacco Use Status: Never Smoking risk assessment performed?: Yes Alcohol Intake: former Drug use: Never Substance use type: does not use Household members: none Housing: house Number of Children: 3 number of grandchildren: 5 Communication Needs: Corrective Lenses current occupation: works at [employer] Pets and animals: Yes (New dog, namned Annette) Current gender identity: male What is your relationship status?: Panel score (0-1 are the most socially isolated patients): 0 What type of physical activity do you participate in: walking and regular exercise Duration: 30-45 minutes/day Frequency: daily Seatbelt use: always Drive intox or ride w/intox special needs bus driver: No Working smoke detector in home: Yes Fire extinguisher in home: Yes Carbon monox detector in home: Yes Do you feel safe at home: Yes Do you feel safe in your relationship?: Yes
--- NOTE | 2022-01-30 14:58 | PDOC.CMDIS ---
- If Service Date Differs Date of service: 01/30/22 Time of Service: 14:58 LACE Index Scoring Tool - Questions: Length of Stay (in days): 3 Acuity (Admit via E.D.?): Yes E.D. Visits: 2 - Answers: Total Score: 8 Risk of Readmission: Low Risk Care Management Discharge Reason for Hospitalization: Uti Discharge Plan: Blaise is discharged home via private vehicle with family. New RX's are transmitted to [facility]. Blaise will follow up with community providers and discharge plan of care as prescribed. Additionally, Blaise is asked to call his PCP (Analia Munroe) and PT (Valentin Licona), Monday morning to schedule 1-2 week follow up appointments. Patient/Family Education Needs: Review discharge instructions, limitations, medications and plan to follow up with community providers. Review ask me three. Services Needed at Discharge: Physical Therapy (Valentin Licona PT)
== END 2022-01-30 17:46 | disposition home or self-care (01) ==
LOC: ER 15:38 → MS 18:52
PROVIDERS: Family Medicine; Nurse Practitioner Family; Admitting Provider Internal Medicine; Emergency Provider Nurse Practitioner Family; PCP Nurse Practitioner Adult Health; Visit Provider Internal Medicine
DX: N39.0 Urinary tract infection, site not specified (principal); D72.829 Elevated white blood cell count, unspecified; R53.1 Weakness; Z20.822 Contact with and (suspected) exposure to COVID-19; I48.91 Unspecified atrial fibrillation; Z79.899 Other long term (current) drug therapy; M54.50 Low back pain, unspecified; K57.30 Diverticulosis of large intestine without perforation or abscess without bleeding; G47.33 Obstructive sleep apnea (adult) (pediatric); E11.9 Type 2 diabetes mellitus without complications; Z79.01 Long term (current) use of anticoagulants; E66.9 Obesity, unspecified; Z68.43 Body mass index [BMI] 50.0-59.9, adult; B96.20 Unspecified Escherichia coli [E. coli] as the cause of diseases classified elsewhere; E87.6 Hypokalemia; I87.2 Venous insufficiency (chronic) (peripheral); M47.816 Spondylosis without myelopathy or radiculopathy, lumbar region; I11.0 Hypertensive heart disease with heart failure; I50.9 Heart failure, unspecified
CPT/HCPCS: 36415; 80048; 80053; 87040; 87493; 87635; 93005; 96365; 96366; 96367; 96368; 96375; 97161; 99285; 71045; 72110; 80162; 81003; 81015; 83735; 83880; 84484; 85025; 93010; 94660; 99217; 99219; 99225; 99226; G0378; J0696; J3480; J3490

== ENCOUNTER 2022-02-08 10:35 | Emergency (ER) | payer MEDICARE, SELFPAY ==
[2022-02-08] VITALS (62 sets, daily range): BP systolic 70–127; BP diastolic 47–104; PULSE 72–132; RESP 16–39; TEMP 36.4–37.1; O2SAT 93–100
--- NOTE | 2022-02-08 10:30 | RT.EKG_ITS ---
APPROVED REPORT Exam: Resting ECG Reason for Exam: sob Patient Location: E HR:104 bpm ECG Measurements Heart Rate 104 AXIS MO [id number] P [id number] QRSd 89 QRS 22 QT 280 T -49 QTc 369 Conclusion Atrial fibrillation...V-rate 59-149, irreg A-activity Repol abnrm suggests ischemia, anterolateral...ST dep, T neg, I aVL V2-V6
--- NOTE | 2022-02-08 10:40 | ED.GENADUL_ITS ---
Discharge Plan Disposition Patient Disposition: STILL A PATIENT Condition: Serious Discharge Details Clinical Impression: Ruptured aneurysm of internal iliac artery Primary Care Provider: Guido Diane ED Provider: Benjamin Kirkpatrick Home Meds and New Rx's Prescriptions: No Action diltiazem HCl 420 mg capsule,extended release 24 hr 420 mg PO DAILY Qty: 90 0RF terbinafine HCl 250 mg tablet 250 mg PO DAILY Qty: 30 0RF multivitamin 1 EACH tablet 1 ea PO DAILY Biotene Dry Mouth Oral Rinse Mouthwash Dental BID PRNQty: 0 amlodipine 5 mg tablet 5 mg PO DAILY Qty: 90 3RF Eliquis 5 mg tablet 5 mg PO q 12 hours Qty: 180 3RF atorvastatin 40 mg tablet 40 mg PO DAILY Qty: 90 3RF furosemide 40 mg tablet 40 mg PO BID Qty: 180 3RF metoprolol succinate 50 mg tablet extended release 24 hr 50 mg PO DAILY Qty: 90 3RF potassium chloride 20 mEq tablet extended release 20 meq PO BID Qty: 180 3RF digoxin 250 mcg (0.25 mg) tablet 250 mcg PO DAILY MDD 375 mcg Qty: 90 0RF digoxin 125 mcg (0.125 mg) tablet 125 mcg PO DAILY MDD 375 mcg Qty: 90 0RF acetaminophen 325 mg Tablet 650 mg PO DAILY PRN Medical Decision Making This is a 66-year-old gentleman with past medical history of A. fib, anticoagulated, hyper tension, diabetes, chronic venous insufficiency and pedal edema, presenting for what he describes as dizziness like the room spinning that began around 2:00 this morning as well as acute on chronic weakness and dyspnea with exertion. Recent admission for generalized weakness and UTI. Clinically he presents with hypotension, mild tachypnea, afebrile. O2 sat is 98% on room air. Plan is to provide 2 L IV fluid, initiate cardiac work-up including BNP although his edema appears to be chronic. We will also recheck a urine to see if his UTI has returned. Will obtain CT imaging of his head for his dizziness. Laboratory values reveal leukocytosis of 40.30, will add on a lactate, procalcitonin, blood cultures, and initiate IV Zosyn and vancomycin Initial blood pressures were in the 90s systolically, manual blood pressure revealed systolic pressures in the low 100s. Multiple repeat blood pressures taken, revealed blood pressure as low as 74/53 but difficult to determine if this was accurate. Patient will receive 3rd L of IV fluid and we will continue to monitor his blood pressures closely. We obtained a manual blood pressure as well as changing out the cuff, blood pressure now 115/94. He is still mentating without difficulty. He initial respiratory rate on triage was in the 30s but during my evaluation it was in the 20s, I do believe that there is some degree of artifact. During his evaluation he does have mild tachypnea but is able to speak in full sentences and appears to be in no respiratory distress. O2 sat is in the mid 90s without any supplemental oxygen. I spoke with the patient Sister Yumi, reports that her other sister is her healthcare proxy and she will reach out to her to obtain any additional information such as his living will and DNR-DNI status. Hemoglobin 11.8 hematocrit 36.5 platelet count 421. Lactate of 9.1 sodium 128, potassium 5.6 creatinine 3.0 with a GFR of 22.35, glucose 175, all of his LFTs are elevated, initial troponin less than 50. BNP 5184. TSH 6.73 Given his ongoing hypotension, will not diurese at this time. Head CT and chest x-ray unremarkable Urine sample reveals large blood, trace leuk esterase with greater than 50 red cells, 5-10 white cells, moderate bacteria. Patient may have a mild UTI but difficult to say that this would cause his leukocytosis of 40. COVID-negative Awaiting coags and dig level, this had to be redrawn by lab. Given his impressive leukocytosis, elevated LFTs, will obtain CT imaging of his chest, abdomen, pelvis without contrast for further evaluation. Digoxin level of 2.8. Patient is chronically on digoxin. Appears to have DOUGLAS today, creatinine 3.0. Patient tells me that he has had some back pain ongoing for quite some time, was seen by his PCP and they are doing physical therapy, may move forward with an MRI. 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 Abundant hematoma around this level as well. Images were immediately pushed to [facility] and I have requested a vascular surgery transfer. I have requested that 2 large-bore IVs be obtained. Type and screen ordered and patient will be given 2 units packed red blood cells. He is able to give verbal consent. He also reports that he is a full code. I was contacted by [facility] at 1538 stating that they were capacity and could not accept transfer of this patient. I then spoke with [facility] at 1544, they will investigate whether or not they can accept transfer of the patient but this may be unlikely and recommended to continue searching elsewhere. I then discussed the case at 1553 with the transfer team at [facility], [facility]. She then got me in touch with the vascular surgeon Dr. Doherty, who except transfer of the patient but we need to await an ICU bed. He does state that getting the images to his facility is of the highest priority. We will investigate this. Also request if time to obtain a central or arterial line if possible. Appropriate transfer paperwork completed. Awaiting a call back from the transfer center stating we may transfer the patient. We have contacted helicopter EMS to help expedite transfer. This conversation was relayed to Dr. John Paul hunter who will attempt to obtain additional IV access. He accepts signout of patient pending transfer for a ruptured iliac artery aneurysm This documentation was generated using [employer] system, please disregard any oddities of phrase or misspellings. Medical Records Medical records reviewed: Yes I reviewed the patient's medical records. Imaging Data Radiologic Study: Attestation: I personally reviewed and interpreted this imaging study as follows: Imaging: CT Scan Radiologist's impression: Exam(s) CT HEAD WO EXAM: CT HEAD WO CLINICAL HISTORY: Dizziness, weakness. TECHNIQUE: Imaging Protocol: Axial computed tomography images with coronal and sagittal reformatted images were created and reviewed COMPARISON: No exams were available for comparison FINDINGS: There are no skull fractures nor fluid in the visualized paranasal sinuses. There is no evidence of intracranial hemorrhage, mass effect, or shift of midline structures. There are no extra-axial fluid collections. The ventricles are not enlarged or shifted and there is no blood within the ventricular system nor within the basal cisterns. Calcification is noted in both vertebral arteries at the skull base as well as within the intracavernous internal carotid arteries. However, there is no evidence of obvious infarct. IMPRESSION: No acute intracranial findings on this noninfused CT scan of the brain. Vascular calcifications the skull base noted. Report called by myself to emergency room. Radiologic Study #2: Attestation: I personally reviewed and interpreted this imaging study as follows: Imaging: X-Ray Radiologist's impression: Exam(s) XR CHEST 2V PA LATERAL EXAM: XR CHEST 2V PA LATERAL CLINICAL HISTORY: sob,weakness. TECHNIQUE: 2D digital imaging was performed. COMPARISON: CR,XR XR PORTABLE CHEST AP from 01/29/2022 FINDINGS: 2 views: Heart size is normal. The mediastinum is not widened. Lungs are clear. No infiltrates nor pleural effusions. IMPRESSION: No acute pulmonary findings. Radiologic Study #3: Attestation: I personally reviewed and interpreted this imaging study as follows: Imaging: CT Scan Radiologist's impression: Exam(s) CT CHEST/ABD/PEL WO EXAM: CT CHEST/ABD/PEL WO CLINICAL HISTORY: weakness, wbc 40. TECHNIQUE: Imaging Protocol: Axial computed tomography images with coronal and sagittal reformatted images were created and reviewed CONTRAST MATERIAL: Intravenous: none Oral: None COMPARISON: CT CT ABDOMEN PELVIS W from 01/21/2022 FINDINGS: CHEST: LUNGS: Mild benign-appearing increased markings in left lower lobe. No confluent infiltrates. No pleural effusions. No ominous pulmonary nodules. No significant focal findings in the trachea and mainstem bronchi.. MEDIASTINUM: No obvious hilar nor mediastinal adenopathy. Visualized thyroid unremarkable. CARDIAC: Heart size is normal. There is no pericardial effusion.Caliber of the thoracic aorta is within normal limits. OSSEOUS: No significant osseous lesions.. ABDOMEN: There is no ascites. LIVER: There are no obvious focal hepatic lesions evident of this noninfused study. GALLBLADDER/BILIARY: Cholelithiasis again noted. CBD is not dilated. PANCREAS: No evidence of obvious pancreatic mass nor dilatation of the pancreatic duct. SPLEEN: Spleen is not enlarged. No obvious intrasplenic lesions. ADRENALS: There are no significant adrenal masses. KIDNEYS: There is a benign cyst in the upper pole the left kidney again noted. No other significant focal left kidney findings.. There is mild hydronephrosis and hydroureter on the right side. Appears to be secondary to findings at right side iliac artery. ABDOMINAL AORTA: Mild fusiform infrarenal abdominal aortic aneurysm with maximum external diameter of 3.2 cm. Also arterial megaly of the common iliac arteries. There is significant abnormal density with epicenter around the distal right common iliac artery and junction with the right external iliac artery and right internal iliac artery. There is abundant hematoma in this region. Suspect rupture of right-sided iliac artery. Recent contrast infused CT scan revealed aneurysmal dilatation. I suspect rupture of the right internal iliac artery. There is abundant the hematoma at and anterior to this level. LYMPH NODES: There is no retroperitoneal nor para-aortic adenopathy. ABDOMINAL WALL/GI: No evidence of significant anterior abdominal wall nor inguinal hernia. No evidence of bowel obstruction. PELVIS: LYMPH NODES: There is no intrapelvic nor inguinal adenopathy. GI: No evidence of appendicitis.No evidence of sigmoid diverticulitis. URINARY BLADDER: Vinson catheter noted in the urinary bladder. Bladder is collapsed around this Vinson catheter. REPRODUCTIVE: Prostate not enlarged. OSSEOUS: Compression fracture superior endplate L4, age indeterminate. Approximately 20 percent height loss. No other fractures identified. No listhesis IMPRESSION: 1. 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 Abundant hematoma around this level as well as elsewhere in the pelvis from this origin. Stat vascular surgery consultation is recommended. 2. 3.2 cm fusiform abdominal aortic aneurysm. No rupture at this level. Report called by myself to the emergency room provider. Lab Data Lab results reviewed: Yes I reviewed the patient's lab results. Labs: 02/08/22 13:30 Urine - Reflex from Ua Urine Culture - Pending 02/08/22 13:22 Blood Blood Culture - Pending 02/08/22 13:05 Blood Blood Culture - Pending Laboratory Tests Range/Units 02/08/22 02/08/22 02/08/22 11:30 11:40 11:40 WBC (4.4-10.8) 10^3/uL RBC (4.36-5.78) 10^6/uL Hgb (13.5-17.5) g/dL Hct (40.0-50.0) % MCV (80-95) fL MCH (27.0-33.0) pg MCHC (32.0-36.0) % RDW (11.8-14.1) % Plt Count (130-400) 10^3/uL MPV (8.0-11.0) fL Immature Gran % Neutrophils % Band Neutrophils % Lymphocytes % Atypical Lymphs % Monocytes % Eosinophils % Basophils % Metamyelocytes % Myelocytes % Nucleated RBC % (0.0-0.3) % Absolute Neutrophils (1.2-6.7) 10^3/uL Absolute Lymphocytes (1.2-3.4) 10^3/uL Absolute Monocytes (0.1-0.8) 10^3/uL Absolute Eosinophils (0.0-0.7) 10^3/uL Absolute Basophils (0.0-0.2) 10^3/uL RBC Morphology PT Cancelled INR Cancelled APTT Cancelled D-Dimer Cancelled VBG Lactate (0.6-1.4) mmol/L Sodium (136-145) mmol/L 128 L Potassium (3.5-5.1) mmol/L 5.6 H Chloride (98-107) mmol/L 90 L Carbon Dioxide (21.0-32.0) mmol/L 16.3 L Anion Gap (3-11) mmol/L 21.7 H BUN (7-18) mg/dL 50 H Creatinine (0.70-1.30) mg/dL 3.0 H Est GFR (CKD-EPI 2020) (mL/min/1.73m2) 22.35 Glucose (74-106) mg/dL 175 H Calcium (8.5-10.1) mg/dL 10.2 H Magnesium (1.8-2.4) mg/dL 2.3 Total Bilirubin (0.2-1.0) mg/dL 1.6 H AST (15-37) U/L 150 H ALT (16-63) U/L 136 H Alkaline Phosphatase (46-116) U/L 123 H Troponin I (<or=60) ng/L < 50 NT-Pro-B Natriuret Pep (<300) pg/mL 5184 H Total Protein (6.4-8.2) g/dL 8.7 H Albumin (3.4-5.0) g/dL 2.4 L Procalcitonin ng/mL TSH (0.36-3.74) uIU/mL 6.73 H Urine Color (Yellow) Urine Clarity (Clear) Urine pH (5-8) Ur Specific Solomon (1.005-1.025) Urine Protein (Negative) mg/dL Urine Ketones (Negative) mg/dL Urine Blood (Negative) Urine Nitrite (Negative) Urine Bilirubin (Negative) Urine Urobilinogen (Up TO 0.2) EU/dL Ur Leukocyte Esterase (Negative) Urine RBC (0-2) HPF Urine WBC (0-5) HPF Ur Epithelial Cells (Negative) HPF Urine Crystals (Negative) HPF Urine Bacteria (Negative) HPF Urine Casts (Negative) LPF Urine Mucus (Negative) Urine Other (Negative) Ur Culture Indicated? Urine Glucose (Negative) mg/dL COVID-19 Source Nasal/Nares SARS-CoV-2 (PCR) (Negative) Negative Range/Units 02/08/22 02/08/22 02/08/22 11:40 11:40 13:05 WBC (4.4-10.8) 10^3/uL 40.30 H* RBC (4.36-5.78) 10^6/uL 3.88 L Hgb (13.5-17.5) g/dL 11.8 L Hct (40.0-50.0) % 36.5 L MCV (80-95) fL 94 MCH (27.0-33.0) pg 30.4 MCHC (32.0-36.0) % 32.3 RDW (11.8-14.1) % 14.0 Plt Count (130-400) 10^3/uL 421 H MPV (8.0-11.0) fL 11.3 H Immature Gran % 0.0 Neutrophils % 89.0 Band Neutrophils % 0 Lymphocytes % 7.0 Atypical Lymphs % 0 Monocytes % 2.0 Eosinophils % 0.0 Basophils % 0.0 Metamyelocytes % 1 Myelocytes % 1 Nucleated RBC % (0.0-0.3) % 0.0 Absolute Neutrophils (1.2-6.7) 10^3/uL 35.87 H Absolute Lymphocytes (1.2-3.4) 10^3/uL 2.82 Absolute Monocytes (0.1-0.8) 10^3/uL 0.81 H Absolute Eosinophils (0.0-0.7) 10^3/uL 0.00 Absolute Basophils (0.0-0.2) 10^3/uL 0.00 RBC Morphology Normal PT INR APTT D-Dimer VBG Lactate (0.6-1.4) mmol/L 9.1 H* Sodium (136-145) mmol/L Cancelled Potassium (3.5-5.1) mmol/L Cancelled Chloride (98-107) mmol/L Cancelled Carbon Dioxide (21.0-32.0) mmol/L Cancelled Anion Gap (3-11) mmol/L Cancelled BUN (7-18) mg/dL Cancelled Creatinine (0.70-1.30) mg/dL Cancelled Est GFR (CKD-EPI 2020) (mL/min/1.73m2) Cancelled Glucose (74-106) mg/dL Cancelled Calcium (8.5-10.1) mg/dL Cancelled Magnesium (1.8-2.4) mg/dL Total Bilirubin (0.2-1.0) mg/dL Cancelled AST (15-37) U/L Cancelled ALT (16-63) U/L Cancelled Alkaline Phosphatase (46-116) U/L Cancelled Troponin I (<or=60) ng/L NT-Pro-B Natriuret Pep (<300) pg/mL Total Protein (6.4-8.2) g/dL Cancelled Albumin (3.4-5.0) g/dL Cancelled Procalcitonin ng/mL 4.1 TSH (0.36-3.74) uIU/mL Urine Color (Yellow) Urine Clarity (Clear) Urine pH (5-8) Ur Specific Solomon (1.005-1.025) Urine Protein (Negative) mg/dL Urine Ketones (Negative) mg/dL Urine Blood (Negative) Urine Nitrite (Negative) Urine Bilirubin (Negative) Urine Urobilinogen (Up TO 0.2) EU/dL Ur Leukocyte Esterase (Negative) Urine RBC (0-2) HPF Urine WBC (0-5) HPF Ur Epithelial Cells (Negative) HPF Urine Crystals (Negative) HPF Urine Bacteria (Negative) HPF Urine Casts (Negative) LPF Urine Mucus (Negative) Urine Other (Negative) Ur Culture Indicated? Urine Glucose (Negative) mg/dL COVID-19 Source SARS-CoV-2 (PCR) (Negative) Range/Units 02/08/22 13:30 WBC (4.4-10.8) 10^3/uL RBC (4.36-5.78) 10^6/uL Hgb (13.5-17.5) g/dL Hct (40.0-50.0) % MCV (80-95) fL MCH (27.0-33.0) pg MCHC (32.0-36.0) % RDW (11.8-14.1) % Plt Count (130-400) 10^3/uL MPV (8.0-11.0) fL Immature Gran % Neutrophils % Band Neutrophils % Lymphocytes % Atypical Lymphs % Monocytes % Eosinophils % Basophils % Metamyelocytes % Myelocytes % Nucleated RBC % (0.0-0.3) % Absolute Neutrophils (1.2-6.7) 10^3/uL Absolute Lymphocytes (1.2-3.4) 10^3/uL Absolute Monocytes (0.1-0.8) 10^3/uL Absolute Eosinophils (0.0-0.7) 10^3/uL Absolute Basophils (0.0-0.2) 10^3/uL RBC Morphology PT INR APTT D-Dimer VBG Lactate (0.6-1.4) mmol/L Sodium (136-145) mmol/L Potassium (3.5-5.1) mmol/L Chloride (98-107) mmol/L Carbon Dioxide (21.0-32.0) mmol/L Anion Gap (3-11) mmol/L BUN (7-18) mg/dL Creatinine (0.70-1.30) mg/dL Est GFR (CKD-EPI 2020) (mL/min/1.73m2) Glucose (74-106) mg/dL Calcium (8.5-10.1) mg/dL Magnesium (1.8-2.4) mg/dL Total Bilirubin (0.2-1.0) mg/dL AST (15-37) U/L ALT (16-63) U/L Alkaline Phosphatase (46-116) U/L Troponin I (<or=60) ng/L NT-Pro-B Natriuret Pep (<300) pg/mL Total Protein (6.4-8.2) g/dL Albumin (3.4-5.0) g/dL Procalcitonin ng/mL TSH (0.36-3.74) uIU/mL Urine Color (Yellow) Brown Urine Clarity (Clear) Cloudy Urine pH (5-8) 5.5 Ur Specific Solomon (1.005-1.025) 1.020 Urine Protein (Negative) mg/dL 30 H Urine Ketones (Negative) mg/dL Negative Urine Blood (Negative) Large H Urine Nitrite (Negative) Negative Urine Bilirubin (Negative) Negative Urine Urobilinogen (Up TO 0.2) EU/dL 0.2 Ur Leukocyte Esterase (Negative) Trace H Urine RBC (0-2) HPF >50 H Urine WBC (0-5) HPF 5-10 Ur Epithelial Cells (Negative) HPF Few Urine Crystals (Negative) HPF Negative Urine Bacteria (Negative) HPF Moderate Urine Casts (Negative) LPF Negative Urine Mucus (Negative) Negative Urine Other (Negative) Negative Ur Culture Indicated? Yes Urine Glucose (Negative) mg/dL Negative COVID-19 Source SARS-CoV-2 (PCR) (Negative) ECG Data Attestation: I personally reviewed and interpreted this ECG (s) as follows: Interpretation: A. fib, ventricular rate of 104, nonspecific ST abnormalities, no STEMI HPI General Mode of arrival: EMS . Date/Time Provider Initiated Documentation: 02/08/22 10:40 . Limitations to Documentation: no limitations . Information obtained by: patient . HPI Narrative: This is a 66-year-old gentleman with a past medical history of A. fib with RVR, on apixaban introduction, diabetes, hypertension, venous insufficiency with peripheral edema, obesity, back pain, presenting to the ER reporting that he went to bed last night feeling well at his baseline, awoke around 2 AM, went to the restroom using his walker and developed dizziness like the room was spinning, did not fall to the ground. He states acute on chronic generalized weakness as well as acute on chronic dyspnea with exertion. He tells me that he was seen by a new primary care provider recently and they are initiating some outpatient work-up and there has been some medication changes recently, he believes change of dose of his diltiazem. He denies recent fall or trauma, headache, visual changes, chest pain, cough, abdominal pain, nausea, vomiting. He denies focal weakness. The patient was recently admitted to our facility for generalized weakness and a UTI, reports that he has been struggling ever since discharge. Related Data Home Medications Medication Instructions Recorded Confirmed multivitamin 1 ea PO DAILY 07/17/12 02/08/22 Biotene Dry Mouth Oral Rinse dental BID PRN ##0 01/15/13 02/01/22 (saliva substitute combo no.9) amlodipine 5 mg tablet 5 mg PO DAILY #90 tab-caps 09/04/21 02/08/22 apixaban 5 mg tablet (Eliquis) 5 mg PO q 12 hours #180 tabs 09/04/21 02/08/22 atorvastatin 40 mg tablet 40 mg PO DAILY #90 tab-caps 09/04/21 02/08/22 furosemide 40 mg tablet 40 mg PO BID #180 tabs 09/04/21 02/08/22 metoprolol succinate 50 mg 50 mg PO DAILY #90 tabs 09/04/21 02/08/22 tablet,extended release 24 hr potassium chloride 20 mEq 20 meq PO BID #180 tab-caps 09/04/21 02/08/22 tablet,extended release digoxin 125 mcg (0.125 mg) tablet 125 mcg PO DAILY #90 tabs 12/30/21 02/08/22 digoxin 250 mcg (0.25 mg) tablet 250 mcg PO DAILY #90 tabs 12/30/21 02/08/22 acetaminophen 325 mg tablet 650 mg PO DAILY PRN 01/27/22 02/08/22 diltiazem HCl 420 mg capsule,24 420 mg PO DAILY #90 caps 02/01/22 02/08/22 hr,extended release terbinafine HCl 250 mg tablet 250 mg PO DAILY #30 tabs 02/01/22 02/08/22 Previous Rx's Medication Instructions Recorded amlodipine 5 mg tablet 5 mg PO DAILY #90 tab-caps 09/04/21 apixaban 5 mg tablet (Eliquis) 5 mg PO q 12 hours #180 tabs 09/04/21 atorvastatin 40 mg tablet 40 mg PO DAILY #90 tab-caps 09/04/21 furosemide 40 mg tablet 40 mg PO BID #180 tabs 09/04/21 metoprolol succinate 50 mg 50 mg PO DAILY #90 tabs 09/04/21 tablet,extended release 24 hr potassium chloride 20 mEq 20 meq PO BID #180 tab-caps 09/04/21 tablet,extended release digoxin 125 mcg (0.125 mg) tablet 125 mcg PO DAILY #90 tabs 12/30/21 digoxin 250 mcg (0.25 mg) tablet 250 mcg PO DAILY #90 tabs 12/30/21 diltiazem HCl 420 mg capsule,24 420 mg PO DAILY #90 caps 02/01/22 hr,extended release terbinafine HCl 250 mg tablet 250 mg PO DAILY #30 tabs 02/01/22 Allergies Allergy/AdvReac Type Severity Reaction Status Date / Time No Known Drug Allergies Allergy Verified 02/08/22 10:50 General IZABELLA: 3 Review of Systems Constitutional Constitutional: Reports fatigue, Denies fever(s), Denies headache(s) and Reports weakness (Generalized) Eyes Eyes: Denies change in vision ENT Ears, Nose, Mouth, and Throat: Denies headache(s) and Denies neck pain Cardiovascular Cardiovascular: Denies chest pain and Reports dyspnea Respiratory Respiratory: Denies cough and Reports dyspnea Gastrointestinal Gastrointestinal: Denies abdominal pain, Denies nausea and Denies vomiting Genitourinary Genitourinary: Denies dysuria Musculoskeletal Musculoskeletal: Reports back pain, Denies neck pain, Denies numbness and Denies tingling Integumentary/Breasts Skin/Breast: Denies rash Neurologic Neurologic: Denies headache(s), Denies numbness, Denies tingling and Reports weakness (Generalized) Endocrine Endocrine: Reports fatigue Hematologic/Lymphatic Hematologic/Lymphatic: Reports easy bleeding and Reports easy bruising PFSH All Active Problems (Updated 02/08/22 @ 16:11 by ZANA Turpin) Ruptured aneurysm of internal iliac artery (Acute) Venous insufficiency (Acute) Tinea corporis (Acute) Lower back pain (Acute) Leucocytosis (Acute) Back pain (Acute) Leukocytosis (Acute) Generalized weakness (Acute) Sessile colonic polyp (Acute) Tubulovillous adenoma of colon (Acute) Diverticula of colon (Acute) Severe disease that does extend to the right hepatic flexure. Adenomatous polyps (Acute) Weight loss counseling, encounter for (Acute 02/11/15) Peripheral edema (Chronic 12/26/17) Obstructive sleep apnea (adult) (pediatric) (Chronic 09/11/12) Knee pain (Acute 06/18/13) Essential hypertension (Acute 07/17/12) BMI 50.0-59.9, adult (Acute 09/11/12) Atrial fibrillation (Acute 10/06/15) Type 2 diabetes mellitus without complication (Acute ~09/01/20) Chronic anticoagulation (Chronic ~09/2015) Dyspnea (Acute) Medical History History of cardioversion Impaired fasting glucose (06/30/11) JOSE ARMANDO (obstructive sleep apnea) 06/22/21 Sleep Clinic visit and f/u in October 2021 Surgical History History of colonoscopy (~04/08/10) History of colonoscopy with polypectomy (~03/26/21) Family History Mother No problems noted. Father , [place] at age 61. Myocardial infarction Sister No problems noted. Sister No problems noted. Son No problems noted. Son No problems noted. Daughter Personal history of malignant neoplasm age 10 of leukemia Social History Smoking/Tobacco Use Status: Never Smoking risk assessment performed?: Yes Alcohol Intake: former Drug use: Never Substance use type: does not use Household members: none Housing: house Number of Children: 3 number of grandchildren: 5 Communication Needs: Corrective Lenses current occupation: works at [employer] Pets and animals: Yes (New dog, namned Annette) Current gender identity: male What is your relationship status?: Panel score (0-1 are the most socially isolated patients): 0 What type of physical activity do you participate in: walking and regular exercise Duration: 30-45 minutes/day Frequency: daily Seatbelt use: always Drive intox or ride w/intox 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 tanker 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: No Working smoke detector in home: Yes Fire extinguisher in home: Yes Carbon monox detector in home: Yes Do you feel safe at home: Yes Do you feel safe in your relationship?: Yes Exam Const General: cooperative, comfortable, no acute distress and ill appearing chronically Orientation: alert, awake and oriented x3 HENMT Head: normal to inspection, normocephalic and atraumatic Face and sinus: normal facial exam Mouth: moist mucous membranes abnormal (dry) Throat: posterior oropharynx normal Eyes General: appearance normal, both eyes and all related structures Conjunctivae: conjunctivae normal Neck Neck: normal visual inspection, full ROM, trachea midline and supple Resp Effort & Inspection: normal respiratory effort and able to speak in complete sentences Auscultation: diminished lung sounds bilaterally in the lower lung luo Cardio Rate: tachycardic (108) Rhythm: abnormal rhythm irregularly irregular GI Inspection: obesity Palpation: soft, not firm, no guarding and nontender Back/Spine/Pelvis Back: no CVA tenderness and back tenderness (Diffuse mild lumbar) Skin General skin exam: no rashes or lesions noted Neuro General: patient alert, patient awake, patient oriented x3, moves all extremities and no focal motor deficits Cognition: normal cognition Speech: speech normal Motor: muscle tone normal throughout Sensory Exam: no sensory deficits noted Extrem General: full ROM, capillary refill normal, no calf tenderness and pedal edema bilaterally non-pitting and 3+ Psych Appearance: grossly normal Mental Status: mental status grossly normal Critical Care Time Critical Care Time Critical Care Time: Yes Total Critical Care Time: 90 Attestation: Upon my evaluation, this patient had a high probability of clinically significant, life-threatening deterioration due to their current medical conditions, which required my direct attention, intervention, and personal management. I have personally provided greater than 30 minutes of critical care time exclusive of the time spend on separately billable procedures. Time includes obtaining a history, examining the patient, pulse oximetry, review of laboratory data, radiology results, discussion with consultants, arranging urgent treatment with development of a management plan, evaluation of patient's response to treatment, and monitoring for potential decompensation. Interventions were performed as documented above.
--- NOTE | 2022-02-08 11:03 | NUR.NOTE ---
Nursing Note: Yumi [phone]
--- NOTE | 2022-02-08 11:15 | DI.RAD_ITS ---
Exam(s) XR CHEST 2V PA LATERAL EXAM: XR CHEST 2V PA LATERAL CLINICAL HISTORY: sob,weakness. TECHNIQUE: 2D digital imaging was performed. COMPARISON: CR,XR XR PORTABLE CHEST AP from 01/29/2022 FINDINGS: 2 views: Heart size is normal. The mediastinum is not widened. Lungs are clear. No infiltrates nor pleural effusions. IMPRESSION: No acute pulmonary findings. DATA REPOSITORY: RADIATION DOSE DELIVERED:
[2022-02-08] MEDS: Lactated Ringers 1,000 ML 1000 ML IV (11:50)
[2022-02-08] MEDS: Meclizine 25 MG TAB PO (11:59)
[2022-02-08 12:05] LABS: Abs Immature Grans 1.46 10^3/uL (0.0-0.06); HCT 36.5 % (40.0-50.0); HGB 11.8 g/dL (13.5-17.5); MCH 30.4 pg (27.0-33.0); MCHC 32.3 % (32.0-36.0); MCV 94 fL (80-95); MPV 11.3 fL (8.0-11.0); Platelet Count 421 10^3/uL (130-400); RBC 3.88 10^6/uL (4.36-5.78); RDW-SD 48.2 fL
[2022-02-08 12:19] LABS: ALT 136 U/L (16-63); AST 150 U/L (15-37); Albumin 2.4 g/dL (3.4-5.0); Alkaline Phosphatase 123 U/L (46-116); Anion Gap 21.7 mmol/L (3-11); BUN 50 mg/dL (7-18); Bilirubin, Total 1.6 mg/dL (0.2-1.0); CO2 16.3 mmol/L (21.0-32.0); Calcium 10.2 mg/dL (8.5-10.1); Chloride 90 mmol/L (98-107); Estimated GFR 22.35 (mL/min/1.73m2); Glucose 175 mg/dL (74-106); Magnesium 2.3 mg/dL (1.8-2.4); NT-proBNP 5184 pg/mL (<300); Potassium 5.6 mmol/L (3.5-5.1); Sodium 128 mmol/L (136-145); TSH 6.73 uIU/mL (0.36-3.74); Total Protein 8.7 g/dL (6.4-8.2); Troponin I < 50 ng/L (<or=60)
[2022-02-08 12:21] LABS: Source Nasal/Nares
[2022-02-08 12:30] LABS: Absolute Lymphocyte Count 2.82 10^3/uL (1.2-3.4); Absolute Monocyte Count 0.81 10^3/uL (0.1-0.8); Absolute Neutrophil Count 35.87 10^3/uL (1.2-6.7); Atypical Lymphocytes % 0; Bands % 0; Metamyelocytes % 1; Myelocytes % 1
--- NOTE | 2022-02-08 12:30 | DI.CT_ITS ---
Exam(s) CT CHEST/ABD/PEL WO EXAM: CT CHEST/ABD/PEL WO CLINICAL HISTORY: weakness, wbc 40. TECHNIQUE: Imaging Protocol: Axial computed tomography images with coronal and sagittal reformatted images were created and reviewed CONTRAST MATERIAL: Intravenous: none Oral: None COMPARISON: CT CT ABDOMEN PELVIS W from 01/21/2022 FINDINGS: CHEST: LUNGS: Mild benign-appearing increased markings in left lower lobe. No confluent infiltrates. No pl eural effusions. No ominous pulmonary nodules. No significant focal findings in the trachea and marcus nstem bronchi.. MEDIASTINUM: No obvious hilar nor mediastinal adenopathy. Visualized thyroid unremarkable. CARDIAC: Heart size is normal. There is no pericardial effusion.Caliber of the thoracic aorta is wit hin normal limits. OSSEOUS: No significant osseous lesions.. ABDOMEN: There is no ascites. LIVER: There are no obvious focal hepatic lesions evident of this noninfused study. GALLBLADDER/BILIARY: Cholelithiasis again noted. CBD is not dilated. PANCREAS: No evidence of obvious pancreatic mass nor dilatation of the pancreatic duct. SPLEEN: Spleen is not enlarged. No obvious intrasplenic lesions. ADRENALS: There are no significant adrenal masses. KIDNEYS: There is a benign cyst in the upper pole the left kidney again noted. No other significant focal left kidney findings.. There is mild hydronephrosis and hydroureter on the right side. Appear s to be secondary to findings at right side iliac artery. ABDOMINAL AORTA: Mild fusiform infrarenal abdominal aortic aneurysm with maximum external diameter of 3.2 cm. Also arterial megaly of the common iliac arteries. There is significant abnormal density w ith epicenter around the distal right common iliac artery and junction with the right external iliac artery and right internal iliac artery. There is abundant hematoma in this region. Suspect rupture of right-sided iliac artery. Recent contrast infused CT scan revealed aneurysmal dilatation. I susp ect rupture of the right internal iliac artery. There is abundant the hematoma at and anterior to th is level. LYMPH NODES: There is no retroperitoneal nor para-aortic adenopathy. ABDOMINAL WALL/GI: No evidence of significant anterior abdominal wall nor inguinal hernia. No evidence of bowel obstruction. PELVIS: LYMPH NODES: There is no intrapelvic nor inguinal adenopathy. GI: No evidence of appendicitis.No evidence of sigmoid diverticulitis. URINARY BLADDER: Vinson catheter noted in the urinary bladder. Bladder is collapsed around this Vinson catheter. REPRODUCTIVE: Prostate not enlarged. OSSEOUS: Compression fracture superior endplate L4, age indeterminate. Approximately 20 percent heig ht loss. No other fractures identified. No listhesis IMPRESSION: 1. 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 Abundant luisa koffi around this level as well as elsewhere in the pelvis from this origin. Stat vascular surgery co nsultation is recommended. 2. 3.2 cm fusiform abdominal aortic aneurysm. No rupture at this level. Report called by myself to the emergency room provider. RADIATION DOSE DELIVERED: 1,974.03mGy.cm Total DLP DATA REPOSITORY: All CT scans at this facility are submitted to the National Radiology Data Registry (NRDR) Dose Index Registry (DIR) with the [employer] ([employer]). RADIATION OPTIMIZATION: All CT scans at this facility use at least one of these dose optimization te chniques: automated exposure control; mA and/or kV adjustment per patient size (includes targeted exa ms where dose is matched to clinical indication); or iterative reconstruction.
[2022-02-08 12:31] LABS: Diff Comment Manual Differential; RBC Morphology Normal
--- NOTE | 2022-02-08 12:32 | DI.CT_ITS ---
Exam(s) CT HEAD WO EXAM: CT HEAD WO CLINICAL HISTORY: Dizziness, weakness. TECHNIQUE: Imaging Protocol: Axial computed tomography images with coronal and sagittal reformatted images were created and reviewed COMPARISON: No exams were available for comparison FINDINGS: There are no skull fractures nor fluid in the visualized paranasal sinuses. There is no evidence of intracranial hemorrhage, mass effect, or shift of midline structures. There are no extra-axial fluid collections. The ventricles are not enlarged or shifted and there is no blo od within the ventricular system nor within the basal cisterns. Calcification is noted in both vertebral arteries at the skull base as well as within the intracavern ous internal carotid arteries. However, there is no evidence of obvious infarct. IMPRESSION: No acute intracranial findings on this noninfused CT scan of the brain. Vascular calcifications the skull base noted. Report called by myself to emergency room. RADIATION DOSE DELIVERED: 822.53mGy.cm Total DLP DATA REPOSITORY: All CT scans at this facility are submitted to the National Radiology Data Registry (NRDR) Dose Index Registry (DIR) with the [employer] ([employer]). RADIATION OPTIMIZATION: All CT scans at this facility use at least one of these dose optimization te chniques: automated exposure control; mA and/or kV adjustment per patient size (includes targeted exa ms where dose is matched to clinical indication); or iterative reconstruction.
[2022-02-08] MEDS: Normal Saline 1,000 ML 1000 ML IV (13:13)
[2022-02-08] MEDS: PIPERACILLIN/TAZO 3.375 GM in Normal Saline 50 ML IVPB (13:14)
[2022-02-08 13:16] LABS: Lactate 9.1 mmol/L (0.6-1.4)
[2022-02-08 13:25] LABS: COVID-19 PCR Negative (Negative)
[2022-02-08 13:46] LABS: Bilirubin Negative (Negative); Blood Large (Negative); Clarity Cloudy (Clear); Glucose Negative (Negative); Ketones Negative (Negative); Leukocyte Esterase Trace (Negative); Nitrite Negative (Negative); Urobilinogen 0.2 EU/dL (Up TO 0.2); pH 5.5 (5-8)
[2022-02-08 13:47] LABS: Procalcitonin 4.1 ng/mL
[2022-02-08 13:53] LABS: Bacteria Moderate HPF (Negative); C & S Indicated? Yes; Casts Negative LPF (Negative); Crystals Negative HPF (Negative); Epithelial Cells Few HPF (Negative); Mucus Negative (Negative); Other Cells Negative (Negative); RBC >50 HPF (0-2)
[2022-02-08] MEDS: VANCOMYCIN/WATER (PEG) 2 GM/400 ML BAG IVPB (14:02)
[2022-02-08 14:35] LABS: Troponin I < 50 ng/L (<or=60)
[2022-02-08 14:36] LABS: INR 1.6 (0.9-1.1); PTT Activated 27.4 sec (21.0-27.5); Prothrombin Time 15.3 sec (9.3-11.0)
[2022-02-08 15:10] LABS: D-Dimer 5336 ng/mlFEU (<500)
[2022-02-08 16:31] LABS: Lactate 4.3 mmol/L (0.6-1.4)
--- NOTE | 2022-02-08 17:02 | ED.PROG_ITS ---
Date of service: 02/08/22 Time of Service: 17:04 Medical Decision Making patient signed out to me at the end of first provider's shift as cat scan results came back showing right internal iliac artery aneurysm with rupture. Patient surprisingly stable with bp of 115/72, hr 98. He is caox4 and was advised that he had an accepting provider at [facility] with helicopter transport en route, [facility] at capacity and declined transfer. he understands the seriousness of his illness and potential to deteriorate and , and advised he is full code at this time Sign Out Sign Out Data: Sign Out Comment: Pending transfer to [facility] for a ruptured iliac artery aneurysm Last updated by Benjamin Kirkpatrick PA at 02/08/22 16:13 Discharge Plan Disposition Patient Disposition: [facility] Condition: Serious Discharge Details Clinical Impression: Ruptured aneurysm of internal iliac artery Primary Care Provider: Guido Diane ED Provider: Selvin Coker [place] Meds and New Rx's Prescriptions: No Action diltiazem HCl 420 mg capsule,extended release 24 hr 420 mg PO DAILY Qty: 90 0RF terbinafine HCl 250 mg tablet 250 mg PO DAILY Qty: 30 0RF multivitamin 1 EACH tablet 1 ea PO DAILY Biotene Dry Mouth Oral Rinse Mouthwash Dental BID PRNQty: 0 amlodipine 5 mg tablet 5 mg PO DAILY Qty: 90 3RF Eliquis 5 mg tablet 5 mg PO q 12 hours Qty: 180 3RF atorvastatin 40 mg tablet 40 mg PO DAILY Qty: 90 3RF furosemide 40 mg tablet 40 mg PO BID Qty: 180 3RF metoprolol succinate 50 mg tablet extended release 24 hr 50 mg PO DAILY Qty: 90 3RF potassium chloride 20 mEq tablet extended release 20 meq PO BID Qty: 180 3RF digoxin 250 mcg (0.25 mg) tablet 250 mcg PO DAILY MDD 375 mcg Qty: 90 0RF digoxin 125 mcg (0.125 mg) tablet 125 mcg PO DAILY MDD 375 mcg Qty: 90 0RF acetaminophen 325 mg Tablet 650 mg PO DAILY PRN
--- NOTE | 2022-02-09 02:01 | NUR.NOTE ---
Positive Blood Culture results faxed to [facility] ICU where patient was transferred.Nursing Note:
== END 2022-02-08 17:42 ==
PROVIDERS: Physician Assistant; Emergency Provider Emergency Medicine; PCP Family Medicine
DX: I72.3 Aneurysm of iliac artery (principal); I10 Essential (primary) hypertension; E11.9 Type 2 diabetes mellitus without complications; I48.91 Unspecified atrial fibrillation; D72.829 Elevated white blood cell count, unspecified; R06.82 Tachypnea, not elsewhere classified; R79.89 Other specified abnormal findings of blood chemistry; Z79.01 Long term (current) use of anticoagulants; Z20.822 Contact with and (suspected) exposure to COVID-19; R53.83 Other fatigue
CPT/HCPCS: 36415; 51702; 71250; 80053; 84145; 86850; 86900; 86901; 86920; 87040; 87077; 87635; 93005; 96361; 96365; 96366; 96367; 96375; 99291; 99292; 70450; 71046; 74176; 80162; 81003; 81015; 83605; 83735; 83880; 84443; 84484; 85025; 85379; 85610; 85730; 87086; 87186; 93010; J2543; P9016

== ENCOUNTER 2022-05-30 02:53 | Outpatient (CLI) | payer MEDICARE, SELFPAY ==
[2022-05-30 10:28] LABS: ALT 44 U/L (16-63); AST 44 U/L (15-37); Albumin 3.4 g/dL (3.4-5.0); Alkaline Phosphatase 65 U/L (46-116); Anion Gap 9.3 mmol/L (3-11); BUN 21 mg/dL (7-18); Bilirubin, Direct 0.2 mg/dL (0.0-0.2); Bilirubin, Total 0.6 mg/dL (0.2-1.0); CO2 28.7 mmol/L (21.0-32.0); CREATININE 1.2 mg/dL (0.70-1.30); Calcium 8.7 mg/dL (8.5-10.1); Chloride 109 mmol/L (98-107); Glucose 110 mg/dL (74-106); Potassium 3.9 mmol/L (3.5-5.1); Sodium 147 mmol/L (136-145); Total Protein 7.7 g/dL (6.4-8.2)
== END 2022-05-30 02:54 | disposition home or self-care (01) ==
LOC: LBO 02:53
PROVIDERS: PCP Family Medicine; Visit Provider Family Medicine
DX: I10 Essential (primary) hypertension (principal); B35.1 Tinea unguium
CPT/HCPCS: 36415; 80048; 80076

== ENCOUNTER → 2022-11-14 10:41 | Outpatient (BNVA) | payer MEDICARE, SELFPAY | PROVIDERS: PCP Family Medicine; Referring Provider Family Medicine; Visit Provider Nurse Practitioner Gerontology | DX: R32 Unspecified urinary incontinence (principal) | CPT/HCPCS: 51798; 81003; 99214 ==

== ENCOUNTER 2022-11-15 10:11 | Outpatient (CLI) | payer MEDICARE, SELFPAY ==
--- NOTE | 2022-11-15 10:00 | RT.EKG_ITS ---
APPROVED REPORT Exam: Resting ECG Reason for Exam: cardiac evaluation Patient Location: O HR:110 bpm ECG Measurements Heart Rate 110 AXIS AR [id number] P [id number] QRSd 93 QRS 30 QT 318 T 227 QTc 431 Conclusion Atrial fibrillation...V-rate 69-147, irreg A-activity Low voltage, precordial leads...precordial leads <1.0mV Nonspecific repol abnormality, diffuse leads...ST dep, T flat/neg, ant/lat/inf
== END 2022-11-15 10:12 | disposition home or self-care (01) ==
LOC: DI.CARD 10:12
PROVIDERS: PCP Family Medicine; Visit Provider Internal Medicine Cardiovascular Disease
DX: I10 Essential (primary) hypertension (principal); I48.91 Unspecified atrial fibrillation; R06.00 Dyspnea, unspecified
CPT/HCPCS: 93010

== ENCOUNTER → 2022-11-15 10:49 | Outpatient (BNVA) | payer MEDICARE, SELFPAY | PROVIDERS: PCP Family Medicine; Referring Provider Family Medicine; Visit Provider Internal Medicine Cardiovascular Disease | DX: I48.21 Permanent atrial fibrillation (principal); Z79.01 Long term (current) use of anticoagulants; I10 Essential (primary) hypertension | CPT/HCPCS: 93005; 99214 ==

== ENCOUNTER → 2022-12-20 08:42 | Outpatient (BNVA) | payer MEDICARE, SELFPAY | PROVIDERS: PCP Family Medicine; Referring Provider Family Medicine; Visit Provider Urology | DX: N13.30 Unspecified hydronephrosis (principal); E11.9 Type 2 diabetes mellitus without complications; I10 Essential (primary) hypertension | CPT/HCPCS: 81003; 99214 ==

== ENCOUNTER → 2023-08-17 12:53 | Outpatient (BNVA) | payer MEDICARE, SELFPAY | PROVIDERS: PCP Family Medicine; Referring Provider Family Medicine; Visit Provider Internal Medicine Cardiovascular Disease | DX: I48.21 Permanent atrial fibrillation (principal); R06.00 Dyspnea, unspecified; I10 Essential (primary) hypertension | CPT/HCPCS: 99213 ==

== ENCOUNTER → 2024-04-08 08:08 | Outpatient (BNVA) | payer MEDICARE, SELFPAY | PROVIDERS: PCP Family Medicine; Referring Provider Family Medicine; Visit Provider Podiatrist | DX: E11.9 Type 2 diabetes mellitus without complications (principal); I87.2 Venous insufficiency (chronic) (peripheral); I48.20 Chronic atrial fibrillation, unspecified; L60.3 Nail dystrophy; B35.1 Tinea unguium; R09.89 Other specified symptoms and signs involving the circulatory and respiratory systems; L65.9 Nonscarring hair loss, unspecified; R20.8 Other disturbances of skin sensation; R60.0 Localized edema; R23.8 Other skin changes; L53.8 Other specified erythematous conditions; M79.674 Pain in right toe(s) | CPT/HCPCS: 11721 ==

== ENCOUNTER → 2024-06-11 08:45 | Outpatient (BNVA) | payer MEDICARE, SELFPAY | PROVIDERS: PCP Family Medicine; Referring Provider Family Medicine; Visit Provider Podiatrist | DX: E11.8 Type 2 diabetes mellitus with unspecified complications (principal); I48.20 Chronic atrial fibrillation, unspecified; L60.3 Nail dystrophy; I89.0 Lymphedema, not elsewhere classified; I87.2 Venous insufficiency (chronic) (peripheral); R09.89 Other specified symptoms and signs involving the circulatory and respiratory systems; L65.9 Nonscarring hair loss, unspecified; R20.8 Other disturbances of skin sensation; R23.8 Other skin changes; R60.0 Localized edema; L60.8 Other nail disorders; L60.2 Onychogryphosis; B35.1 Tinea unguium | CPT/HCPCS: 11721 ==

== ENCOUNTER 2024-07-03 19:54 | Outpatient (REF) | payer MEDICARE, SELFPAY | END 2024-07-03 19:55 | disposition home or self-care (01) | LOC: LBN 19:54 | PROVIDERS: PCP Family Medicine; Visit Provider Nurse Practitioner | DX: R30.0 Dysuria (principal); R19.7 Diarrhea, unspecified; N39.0 Urinary tract infection, site not specified | CPT/HCPCS: 87077; 87086; 87186 ==

== ENCOUNTER 2024-07-04 15:10 | Outpatient (REF) | payer MEDICARE, SELFPAY ==
[2024-07-04 16:26] LABS: C Diff PCR Negative (Negative)
[2024-07-05 11:33] LABS: Campylobacter PCR Negative (Negative); Salmonella PCR Negative (Negative); Shiga Toxin PCR Negative (Negative); Shigella/Enteroinvasive Ecoli Negative (Negative)
== END 2024-07-04 15:11 | disposition home or self-care (01) ==
LOC: LBN 15:10
PROVIDERS: PCP Family Medicine; Visit Provider Nurse Practitioner
DX: R19.7 Diarrhea, unspecified (principal); R30.0 Dysuria; N39.0 Urinary tract infection, site not specified
CPT/HCPCS: 87493; 87505; 87177

== ENCOUNTER → 2024-08-16 08:32 | Outpatient (BNVA) | payer MEDICARE, SELFPAY | PROVIDERS: PCP Family Medicine; Referring Provider Family Medicine; Visit Provider Internal Medicine Cardiovascular Disease | DX: I48.20 Chronic atrial fibrillation, unspecified (principal); R06.00 Dyspnea, unspecified; I10 Essential (primary) hypertension | CPT/HCPCS: 99214 ==

== ENCOUNTER 2024-09-10 00:30 | Outpatient (CLI) | payer MEDICARE, SELFPAY ==
--- NOTE | 2024-09-10 07:30 | DI.US_ITS ---
APPROVED REPORT EXAM: Comprehensive 2D, Doppler, and color-flow Echocardiogram Patient Location: Out-Patient Animation Producer: Constantin Harrison RDCS (AE) Indications: Check LV function, chronic afib Other Information Study Quality: Adequate. Technically limited study due to body habitus. Conclusion Normal left ventricular wall thickness and chamber size. Ejection fraction is 55 to 60%. Wall motio n is normal Normal right ventricular size and function Both atria are severely enlarged There are no structural valvular abnormalities Trace aortic regurgitation Wall motion Left Ventricle The left ventricle is normal size. Left ventricular systolic function is normal. The left ventricular ejection fraction is within the normal range. There is normal left ventricular wall thickness. There is normal LV segmental wall motion. There is no ventricular septal defect visualized. LVEF is 55-60% . Right Ventricle The right ventricle is normal size. The right ventricular systolic function is normal. Atria Left atrium is severely dilated. Right atrium is severely dilated. The interatrial septum is intact w ith no evidence for an atrial septal defect. Aortic Valve The aortic valve is normal in structure. Aortic valve is trileaflet. There is no aortic valvular sten osis. trace aortic regurgitation is present. Mitral Valve The mitral valve is normal in structure. No evidence of mitral valve stenosis. There is no mitral tim ve regurgitation noted. Tricuspid Valve The tricuspid valve is normal in structure. There is no tricuspid valve stenosis. Trace tricuspid reg urgitation. Pulmonic Valve The pulmonary valve is normal in structure. There is no pulmonic valvular stenosis. There is no pulmo merly valvular regurgitation. Great Vessels The aortic root is normal in size. The ascending aorta is normal in size. Aortic arch is not well vis ualized. IVC is normal in size and collapses >50% with inspiration. Pericardium There is no pericardial effusion. 2D Dimensions IVSD d PLAX 0.66 cm M: 0.6-1.2 Ao Root d 3.26 cm M: 3.1 - 3.7 LVPW d PLAX 0.69 cm M: 0.6 - 1.2 Ao Asc Diam d 3.40 cm M: 2.6 - 3.4 LVID d PLAX 5.76 cm M: 4.2 - 5.8 LVDs 4.08 cm M: 2.5 - 4.0 LV EF Teichholz 55.2 % FS 29.14 % LV EDV (Teich) 163.7 mL LV ESV (Teich) 73.3 mL Stroke Vol Index (Teich) 39.46 M-Mode TAPSE 2.02 cm (M/F) >1.7 LV Volumes - Method of Disks (Morgan's) Single Plane 2D LV Volumes Biplane 2D LV Volumes LV EDV A4C 82.7 mL LV EDV BP 62.05 mL M: 62 - 150 LV ESV A4C 35.4 mL LV ESV BP 26.6 mL LVEF(%) A4C 57.2 % LVEF(%) BP 57.05 % M: 52 - 72 LV EDV A2C 46.6 mL LV EDV BP Index 27.09 mL/m2 M: 34 - 74 LV ESV A2C 20.0 mL SV BP LVEF(%) A2C 57.1 % SV Index LA Volume LA Length A4C 6.7 cm LA Length A2C 6.7 cm LA Area A4C s 30.20 cm2 LA Area A2C s 26.01 cm2 LA Vol A4C A-L 115.47 mL LA Vol A2C A-L 85.52 mL LA Vol Biplane A-L 99.4 mL LA Vol/BSA A4C A-L LA Vol/BSA A2C A-L LA Vol/BSA BP A-L 43.4 mL/m2 LA Vol A4C MOD 110.5 mL LA Vol A2C MOD 83.0 mL LA Vol BP MOD 95.5 mL RA Volume RA Area A4C 23.4 cm2 RA ESV A4C (A-L) 76.8mL RA Vol/BSA A4C A-L RA Length A4C 6.1 cm RA ESV A4C (MOD) 75.4mL LV Diastology MV E' medial 0.101 (>0.07 m/s) MV E Vmax 1.22 (0.4-1.3 m/s) MV E' lateral 0.144 (>0.1 m/s) Aortic Valve AoV Vmax 1.50 m/s LVOT Vmax 1.08 m/s AoV Peak Grad 9.0 mmHg LVOT Peak Grad 4.7 mmHg AoV Area (Vmax) 2.09 cm2 LVOT VTI 0.204 m AoV VTI 0.271 m LVOT Mean Grad 2.6 mmHg AoV Mean Rojelio. 1.04 m/s LVOT SV 58.64 mL AoV Mean Grad 4.7 mmHg LVOT Diam s 1.90 cm AoV Area (VTI) 2.17 cm2 AV Regurg Peak Gr. 8.97 mmHg Velocity Ratio 0.72 Pulmonary Valve PV Vmax 1.10 (0.5-1.5 m/s) RVOT Vmax 0.76 m/s PV Peak Grad 4.9 mmHg RVOT Peak Gr. 2.3 mmHg PV Mean Rojelio 0.82 m/s RVOT VTI 0.145 m PV Mean Grad 3.0 mmHg RVOT Mean Gr. 1.2 mmHg Tricuspid Valve TV S' 0.16 m/s
== END 2024-09-10 00:50 ==
LOC: DI 00:30
PROVIDERS: PCP Family Medicine; Visit Provider Internal Medicine Cardiovascular Disease
DX: I48.91 Unspecified atrial fibrillation (principal)
CPT/HCPCS: 93306

== ENCOUNTER → 2024-10-09 08:50 | Outpatient (BNVA) | payer MEDICARE, SELFPAY | PROVIDERS: PCP Family Medicine; Referring Provider Family Medicine; Visit Provider Podiatrist | DX: I87.2 Venous insufficiency (chronic) (peripheral) (principal); R60.0 Localized edema; I89.0 Lymphedema, not elsewhere classified; E11.9 Type 2 diabetes mellitus without complications; L60.3 Nail dystrophy; B35.1 Tinea unguium; L60.2 Onychogryphosis; L84 Corns and callosities; R09.89 Other specified symptoms and signs involving the circulatory and respiratory systems; L65.9 Nonscarring hair loss, unspecified; R20.8 Other disturbances of skin sensation; R23.8 Other skin changes; L60.8 Other nail disorders; R25.2 Cramp and spasm; L85.8 Other specified epidermal thickening | CPT/HCPCS: 11056; 11721 ==

== ENCOUNTER → 2025-01-28 08:49 | Outpatient (BNVA) | payer MEDICARE, SELFPAY | PROVIDERS: PCP Family Medicine; Referring Provider Family Medicine; Visit Provider Podiatrist | DX: I87.2 Venous insufficiency (chronic) (peripheral) (principal); E11.9 Type 2 diabetes mellitus without complications; R60.0 Localized edema; I89.0 Lymphedema, not elsewhere classified; L60.3 Nail dystrophy; B35.1 Tinea unguium; L84 Corns and callosities; R09.89 Other specified symptoms and signs involving the circulatory and respiratory systems; L65.9 Nonscarring hair loss, unspecified; R20.8 Other disturbances of skin sensation; R23.4 Changes in skin texture; L60.8 Other nail disorders; L85.8 Other specified epidermal thickening; L60.2 Onychogryphosis | CPT/HCPCS: 11056; 11721 ==